=== PATIENT | male | born 1945 | race Caucasian/White ===

== ENCOUNTER 2017-05-31 14:18 | Inpatient (IN) | payer MEDICARE ==
[~2017-05-31] VITALS: Ht 172.7 cm; Wt 79.8 kg
[~2017-05-31 14:18] MED LIST: CHRO200T2 PO; COQ150CA OR; CYCL1PAK PO; ECOT325T PO; FLAX10008 OR; FOLI200T OR; ISOS30TA3 PO; METO50TA OR; POTA595T2 PO; PRAS10TA OR; PRAV20TA67 PO; TAB-TAB PO; VITA20003 OR
[2017-05-31 14:33] VITALS: BP 163/82; PULSE 66; RESP 18; TEMP 98; O2SAT 96
[2017-05-31 15:10] VITALS: BP 183/87; PULSE 64; RESP 18; O2SAT 97
[2017-05-31 15:14] VITALS: BP_SYST 155; BP_SYST 183; BP_DIAS 78; BP_DIAS 87; PULSE 64; RESP 18; O2SAT 97
[2017-05-31] MEDS ORDERED: SODIUM CHLORIDE 0.9% FLUSH 10 ML FLUSH IVF PRN (15:15)
[2017-05-31 15:23] LABS: BICARBONATE 28.3 MEQ/L (21.0-32.0); CALCIUM 9.2 MG/DL (8.5-10.1); CREATININE 0.74 MG/DL (0.60-1.30)
[2017-05-31 15:26] LABS: TROPONIN I 0.09 NG/ML (0.02-0.05)
[2017-05-31 15:37] LABS: AUTOMATED NEUTROPHIL # 2.8 TH/MM3 (1.8-7.7); BASOPHIL % 0.4 % (0.0-2.0); EOSINOPHIL # 0.1 TH/MM3 (0-0.4); EOSINOPHIL % 2.4 % (0.0-4.0); HEMATOCRIT 42.5 % (39.0-51.0); HEMOGLOBIN 15.3 GM/DL (13.0-17.0); LYMPH % 28.5 % (9.0-44.0); LYMPHOCYTE # 1.4 TH/MM3 (1.0-4.8); MEAN CORPUSCULAR HEMOGLOBIN 33.2 PG (27.0-34.0); MEAN PLATELET VOLUME 7.7 FL (7.0-11.0); MONO % 9.7 % (0.0-8.0); MONOCYTE # 0.5 TH/MM3 (0-0.9); PLATELET COUNT 178 TH/MM3 (150-450); RED BLOOD COUNT 4.62 MIL/MM3 (4.50-5.90); WHITE BLOOD COUNT 4.8 TH/MM3 (4.0-11.0)
--- NOTE | 2017-05-31 15:37 | RADRPT ---
EXAM DATE/TIME: 05/31/2017 15:28 [place] COMPARISON: No previous studies available for comparison. INDICATIONS : Chest pain SURGICAL HISTORY : CABG. ENCOUNTER: Initial ACUITY: 3 days PAIN SCORE: 10/10 LOCATION: chest FINDINGS: Sternal wires from previous bypass and valve replacement. Lungs are clear. There is no pneumothorax or effusion. Degenerative change is present thoracic spine.. CONCLUSION: No acute disease. Xander Liz MD FACR on May 31, 2017 at 15:35 Board Certified Radiologist. This report was verified electronically.
[2017-05-31 15:43] LABS: MEAN CORPUSCULAR HGB CONC 36.1 % (32.0-36.0)
[2017-05-31 15:53] LABS: PROTHROMBIN TIME - PATIENT 10.3 SEC (9.8-11.6)
[2017-05-31] MEDS ORDERED: NITROGLYCERIN 0.4 MG SL 25 TABS/BTL SL ONE (16:00)
[2017-05-31] MEDS ORDERED: ASPIRIN 81 MG CHEW TAB PO ONE (16:00)
--- NOTE | 2017-05-31 16:03 | PD ---
HPI Chief Complaint: Chest Pain Time Seen by Provider: 15:10 Travel History International Travel<30 days: No Contact w/Intl Traveler<30days: No Traveled to known affect area: No History of Present Illness HPI 71 y/o male presents with central chest pain intermittently since Saturday. He states he has been taking multiple nitroglycerin since then without relief. He states he took a baby aspirin. He states Dr. Canchola is his skinner pelts. He states his last stress test was normal 2 months ago. He states that in about 2011 he had a collapsed vessel that they could not stent but he has history of 4 stents and bypass surgery. He denies any other concurrent complaints. He denies specific modifying factors. He states he waited to come in today because he just got back from [place] and wanted to be seen down here. Quality is pressure. Severity is moderate. PFSH Past Medical History Arthritis: Yes (DON'T HAVE IT ANYMORE.) Asthma: No Blood Disorders: No Heart Rhythm Problems: No Cancer: No Cardiac Catheterization: Yes Cardiovascular Problems: Yes High Cholesterol: Yes Chest Pain: Yes Congestive Heart Failure: Yes COPD: No Cerebrovascular Accident: No Diabetes: No Endocrine: No Gastrointestinal Disorders: No GERD: No Genitourinary: No Headaches: No Hepatitis: No Hiatal Hernia: No Heparin Induced Thrombocytopen: No Hypertension: Yes Immune Disorder: No Kidney Stones: No Musculoskeletal: No Neurologic: No Psychiatric: No Reproductive: No Respiratory: No Migraines: No Myocardial Infarction: Yes Renal Failure: No Seizures: No Sleep Apnea: No Ulcer: No Past Surgical History Abdominal Surgery: No Appendectomy: No Cardiac Surgery: Yes (HEART VALVE) Cholecystectomy: No Coronary Artery Bypass Graft: Yes Ear Surgery: No Endocrine Surgery: No Eye Surgery: No Genitourinary Surgery: No Gynecologic Surgery: No Neurologic Surgery: No Oral Surgery: No Thoracic Surgery: No Other Surgery: Yes (OPEN HEART SURGRY 1997,2007) Family History Family Myocardial Infarction: Yes (FATHER AND BROTHERS) Social History Alcohol Use: Yes (wine on occasion) Tobacco Use: No Substance Use: No Allergies-Medications (Allergen,Severity, Reaction): Coded Allergies: atorvastatin (Unverified Allergy, Unknown, 11/06/16) clopidogrel (Unverified Allergy, Unknown, 11/06/16) simvastatin (Unverified Allergy, Unknown, 11/06/16) Reported Meds & Prescriptions Reported Meds & Active Scripts Active Reported Pravastatin 20 Mg Tab 20 Mg PO DAILY Isosorbide Mononitrate ER (Isosorbide Mononitrate) 60 Mg Tab 60 Mg PO DAILY Metoprolol Tartrate 25 Mg Tab 25 Mg PO BID Coq10 Maximum Strength (Coenzyme Q10 (Ubidecarenone)) 400 Mg Cap Vitamin D3 Maximum Strength (Cholecalciferol) 5,000 Unit Cap 5,000 Units PO DAILY Aspirin 81 Mg Chew 81 Mg CHEW DAILY Review of Systems Except as stated in HPI: all other systems reviewed are Neg Physical Exam Narrative GENERAL: 71-year-old male in no apparent distress SKIN: Focused skin assessment warm/dry. HEAD: Atraumatic. Normocephalic. EYES: Pupils equal and round. No scleral icterus. No injection or drainage. ENT: No nasal bleeding or discharge. Mucous membranes pink and moist. NECK: Trachea midline. No JVD. CARDIOVASCULAR: Regular rate and rhythm. RESPIRATORY: No accessory muscle use. No increased effort GASTROINTESTINAL: Abdomen nondistended. MUSCULOSKELETAL: No obvious deformities. No clubbing. No cyanosis. NEUROLOGICAL: Awake and alert. Moves all extremities. Normal speech. PSYCHIATRIC: Appropriate mood and affect; insight and judgment normal. Data Data Last Documented VS Vital Signs Date Time Temp Pulse Resp B/P (MAP) Pulse Ox O2 Delivery O2 Flow Rate FiO2 05/31/17 15:14 18 97 Room Air 05/31/17 15:14 64 05/31/17 14:33 98.0 Orders Orders Electrocardiogram (05/31/17 14:32) Complete Blood Count With Diff (05/31/17 14:32) Basic Metabolic Panel (Bmp) (05/31/17 14:32) Ckmb (Isoenzyme) Profile (05/31/17 14:32) Troponin I (05/31/17 14:32) Magnesium (Mg) (05/31/17 15:10) Prothrombin Time / Inr (Pt) (05/31/17 15:10) Act Partial Throm Time (Ptt) (05/31/17 15:10) Ecg Monitoring (05/31/17 15:10) Bilateral Bp Monitoring (05/31/17 15:10) Iv Access Insert/Monitor (05/31/17 15:10) Oximetry (05/31/17 15:10) Oxygen Administration (05/31/17 15:10) Sodium Chloride 0.9% Flush (Ns Flush) (05/31/17 15:15) Chest, Pa & Lat (05/31/17 15:10) Aspirin Chew (Aspirin Chew) (05/31/17 16:00) Nitroglycerin Sl (Nitrostat Sl) (05/31/17 16:00) Heparin Inj (Heparin Inj) (05/31/17 16:30) Heparin Inj (Heparin Inj) (05/31/17 22:30) Heparin Inj (Heparin Inj) (05/31/17 22:30) Heparin-D5w 25,000 U/250 Ml (Heparin-D5w (05/31/17 16:30) Cbc No Diff, Includes Plts (06/03/17 06:00) Act Partial Throm Time (Ptt) (05/31/17 23:29) Occult Blood (Hemoccult) Stool (05/31/17 16:29) Admit Order (Ed Use Only) (05/31/17 16:37) Labs Laboratory Tests Test 05/31/17 14:45 05/31/17 15:22 White Blood Count 4.8 TH/MM3 Red Blood Count 4.62 MIL/MM3 Hemoglobin 15.3 GM/DL Hematocrit 42.5 % Mean Corpuscular Volume 92.0 FL Mean Corpuscular Hemoglobin 33.2 PG Mean Corpuscular Hemoglobin Concent 36.1 % Red Cell Distribution Width 13.0 % Platelet Count 178 TH/MM3 Mean Platelet Volume 7.7 FL Neutrophils (%) (Auto) 59.0 % Lymphocytes (%) (Auto) 28.5 % Monocytes (%) (Auto) 9.7 % Eosinophils (%) (Auto) 2.4 % Basophils (%) (Auto) 0.4 % Neutrophils # (Auto) 2.8 TH/MM3 Lymphocytes # (Auto) 1.4 TH/MM3 Monocytes # (Auto) 0.5 TH/MM3 Eosinophils # (Auto) 0.1 TH/MM3 Basophils # (Auto) 0.0 TH/MM3 CBC Comment AUTO DIFF Blood Urea Nitrogen 11 MG/DL Creatinine 0.74 MG/DL Random Glucose 107 MG/DL Calcium Level 9.2 MG/DL Sodium Level 141 MEQ/L Potassium Level 3.6 MEQ/L Chloride Level 106 MEQ/L Carbon Dioxide Level 28.3 MEQ/L Anion Gap 7 MEQ/L Estimat Glomerular Filtration Rate 104 ML/MIN Total Creatine Kinase 76 U/L Troponin I 0.09 NG/ML Prothrombin Time 10.3 SEC Prothromb Time International Ratio 1.0 RATIO Activated Partial Thromboplast Time 25.6 SEC MDM Medical Decision Making Medical Screen Exam Complete: Yes Emergency Medical Condition: Yes Medical Record Reviewed: Yes (Past history confirmed) Interpretation(s) CBC & BMP Diagram 05/31/17 14:45 Calcium Level 9.2 Last 24 hours Impressions Chest X-Ray 05/31/17 1510 Signed Impressions: Service Date/Time: Saturday, May 31, 2017 15:28 - CONCLUSION: No acute disease. Xander Liz MD FACR Differential Diagnosis Cardiac, musculoskeletal, gastritis Narrative Course We will follow blood work and x-ray and dose with aspirin and nitroglycerin and reevaluate Given elevated troponin will discuss with his skinner pelts patient updated and agrees to admit Physician Communication Physician Communication dr canchola states to place and heparin and admit, likely cath saturday Diagnosis Primary Impression: Unstable angina Additional Impression: Elevated troponin Admitting Information Admitting Physician Requests: Admit Brenda Dobbs MD May 31, 2017 16:03
[2017-05-31] MEDS ORDERED: PRAV20TA2 PO (16:19)
[2017-05-31] MEDS ORDERED: ASPI-516 PO (16:19)
[2017-05-31] MEDS ORDERED: METO25TA3 PO (16:19)
[2017-05-31] MEDS ORDERED: COQ1400C (16:19)
[2017-05-31] MEDS ORDERED: CHOL500022 PO (16:19)
[2017-05-31] MEDS ORDERED: ISOS60TA PO (16:19)
[2017-05-31] MEDS ORDERED: HEPARIN SODIUM - IV 10,000 UNITS/10 ML VIAL IV ONE (16:30)
--- NOTE | 2017-05-31 17:01 | HHI.HP ---
HPI Service [facility] Hospitalists Primary Care Physician Diallo Ocampo D.O. Admission Diagnosis unstable angina Chief Complaint: Chest pain Travel History International Travel<30 Days: No Contact w/Intl Traveler <30 Da: No Traveled to Known Affected Are: No History of Present Illness Mr. Gonzales is a pleasant 71 y/o WM with of CAD s/p CABG x 3 in 1997, unstable angina, hx of aortic valve replacement with bioprosthetic valve and previous stenting. His last cardiac cath was in [address] Carlisle which noted a totally occluded SVG to PDA graft but a patent MCGINNIS to LAD and patent SVG to large diagonal and patent [place] circumflex. Pt follows with Dr. Garces for Cardiology. Pt reports that he had an outpt nuclear stress test about 2 months ago which was negative per the pt. He was out of the state this week and states that he woke up during the night on Saturday with some left sided chest tightness and left arm pain. He took an Imdur (the third he had taken that day) with some relief. He had to drive up to [place] that day and continued to have intermittent left chest tightness/burning and left arm numbness while driving. He states that the pain was occurring at rest which is unusual for him. This occurred multiple times over the next three days and was taking Nitro 5-6 times per day. He has some pain associated with food intake and occasionally noted some chest pain with positional changes. Denies any SOB, palpitations, diaphoresis, dizziness or weakness. Pt reported to the ED after returning to town because he continued to have this intermittent chest pain which he reports is the same pain he has experienced in the past related to his cardiac pain. In the ED his first set of CE noted elevated troponin of 0.09. The ER discussed the case with the pts Organ Pipe Finisher, Dr. Garces and he is being started on Heparin and planning for [facility] likely Saturday. Review of Systems Constitutional: DENIES: Fever, Chills Eyes: DENIES: Vision loss Ears, nose, mouth, throat: DENIES: Hearing loss Respiratory: DENIES: Cough Cardiovascular: COMPLAINS OF: Chest pain, DENIES: Palpitations, Lower Extremity Edema Gastrointestinal: DENIES: Abdominal pain, Diarrhea, GERD, Nausea, Reflux, Vomiting Genitourinary: DENIES: Hematuria, Dysuria Musculoskeletal: DENIES: Back pain, Neck pain Integumentary: DENIES: Rash Neurologic: COMPLAINS OF: Paresthesias, DENIES: Headache, Localized weakness, Speech Problems Psychiatric: DENIES: Confusion Past Family Social History Past Medical History CAD with hx of [place] Hx of aortic valve stenosis Unstable angina Prediabetes HTN Hyperlipidemia Dysphagia ?strictures 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 Past Surgical History CABG x 3 in 1997 AVR with bioprosthetic valve in 2008 Tonsillectomy at age 1 Hx of EGD with dilation Reported Medications -Pravastatin 20 Mg PO DAILY --Isosorbide Mononitrate ER 60 Mg PO BID -Metoprolol Tartrate 25 Mg PO BID -Coq10 Maximum Strength 400 Mg Cap PO DAILY -Vitamin D3 Maximum Strength 5,000 Units PO DAILY -Aspirin 81 Mg CHEW DAILY Nitro PRN HCTZ Allergies: Coded Allergies: atorvastatin (Unverified Allergy, Unknown, 11/06/16) clopidogrel (Unverified Allergy, Unknown, 11/06/16) simvastatin (Unverified Allergy, Unknown, 11/06/16) Family History Father from CAD/[place] Brother with hx of CAD Mother with hx of lung cancer Social History Pt with remote hx of tobacco use, quit smoking in 1965 Denies any alcohol use Pt is and lives locally Physical Exam Vital Signs Vital Signs Date Time Temp Pulse Resp B/P (MAP) Pulse Ox O2 Delivery O2 Flow Rate FiO2 05/31/17 15:14 18 97 Room Air 05/31/17 15:14 64 183/87 (119) 155/78 (103) 05/31/17 15:14 97 Room Air 05/31/17 15:11 62 18 97 Room Air 05/31/17 15:10 64 18 183/87 (119) 97 Room Air 05/31/17 14:33 98.0 66 18 163/82 (109) 96 Physical Exam GENERAL: This is a well-nourished, well-developed patient, in no apparent distress. HEENT: Atraumatic. Normocephalic. No temporal or scalp tenderness. No scleral icterus. Airway patent. NECK: Trachea midline, supple, nontender. CARDIO: Regular. RESP: CTA bilaterally. No wheezes, rales, or rhonchi. ABD: +BS, soft, non-tender, nondistended. EXT: Extremities without clubbing, cyanosis, or edema. NEURO: Awake and alert. Motor and sensory grossly within normal limits. Normal speech. Laboratory Laboratory Tests Test 05/31/17 14:45 05/31/17 15:22 White Blood Count 4.8 Red Blood Count 4.62 Hemoglobin 15.3 Hematocrit 42.5 Mean Corpuscular Volume 92.0 Mean Corpuscular Hemoglobin 33.2 Mean Corpuscular Hemoglobin Concent 36.1 Red Cell Distribution Width 13.0 Platelet Count 178 Mean Platelet Volume 7.7 Neutrophils (%) (Auto) 59.0 Lymphocytes (%) (Auto) 28.5 Monocytes (%) (Auto) 9.7 Eosinophils (%) (Auto) 2.4 Basophils (%) (Auto) 0.4 Neutrophils # (Auto) 2.8 Lymphocytes # (Auto) 1.4 Monocytes # (Auto) 0.5 Eosinophils # (Auto) 0.1 Basophils # (Auto) 0.0 CBC Comment AUTO DIFF Blood Urea Nitrogen 11 Creatinine 0.74 Random Glucose 107 Calcium Level 9.2 Sodium Level 141 Potassium Level 3.6 Chloride Level 106 Carbon Dioxide Level 28.3 Anion Gap 7 Estimat Glomerular Filtration Rate 104 Total Creatine Kinase 76 Troponin I 0.09 Prothrombin Time 10.3 Prothromb Time International Ratio 1.0 Activated Partial Thromboplast Time 25.6 Result Diagram: 05/31/17 1445 05/31/17 1445 Imaging Last Impressions Chest X-Ray 05/31/17 1510 Signed Impressions: Service Date/Time: Wednesday, May 31, 2017 15:28 - CONCLUSION: No acute disease. Xander Liz MD FACR Caprini VTE Risk Assessment Caprini VTE Risk Assessment: Mod/High Risk (score >= 2) Caprini Risk Assessment Model Point Value = 1 Point Value = 2 Point Value = 3 Point Value = 5 Age 41-60 Minor surgery BMI > 25 kg/m2 Swollen legs Varicose veins or History of unexplained or recurrent spontaneous Oral contraceptives or hormone replacement Sepsis (< 1 month) Serious lung disease, including pneumonia (< 1 month) Abnormal pulmonary function Acute myocardial infarction Congestive heart failure (< 1 month) History of inflammatory bowel disease Medical patient at bed rest Age 61-74 Arthroscopic surgery Major open surgery (> 45 min) Laparoscopic surgery (> 45 min) Malignancy Confined to bed (> 72 hours) Immobilizing plaster cast Central venous access Age >= 75 History of VTE Family history of VTE Factor V Leiden Prothrombin [id number] Lupus anticoagulant Anticardiolipin antibodies Elevated serum homocysteine Heparin-induced thrombocytopenia Other congenital or acquired thrombophilia Stroke (< 1 month) Elective arthroplasty Hip, pelvis, or leg fracture Acute spinal cord injury (< 1 month) Prophylaxis Regimen Total Risk Factor Score Risk Level Prophylaxis Regimen 0-1 Low Early ambulation 2 Moderate Order ONE of the following: *Sequential Compression Device (SCD) *Heparin 5000 units SQ BID 3-4 Higher Order ONE of the following medications: *Heparin 5000 units SQ TID *Enoxaparin/Lovenox 40 mg SQ daily (WT < 150 kg, CrCl > 30 mL/min) *Enoxaparin/Lovenox 30 mg SQ daily (WT < 150 kg, CrCl > 10-29 mL/min) *Enoxaparin/Lovenox 30 mg SQ BID (WT < 150 kg, CrCl > 30 mL/min) AND/OR *Sequential Compression Device (SCD) 5 or more Highest Order ONE of the following medications: *Heparin 5000 units SQ TID (Preferred with Epidurals) *Enoxaparin/Lovenox 40 mg SQ daily (WT < 150 kg, CrCl > 30 mL/min) *Enoxaparin/Lovenox 30 mg SQ daily (WT < 150 kg, CrCl > 10-29 mL/min) *Enoxaparin/Lovenox 30 mg SQ BID (WT < 150 kg, CrCl > 30 mL/min) AND *Sequential Compression Device (SCD) Assessment and Plan Problem List: (1) Unstable angina ICD Codes: I20.0 - Unstable angina Status: Acute Plan: - Pt is a 71 y/o WM with of CAD s/p CABG x 3 in 1997, unstable angina, hx of aortic valve replacement with bioprosthetic valve and previous stenting. His last cardiac cath was in [address] Carlisle which noted a totally occluded SVG to PDA graft but a patent MCGINNIS to LAD and patent SVG to large diagonal and patent [place] circumflex. Pt follows with Dr. Garces for Cardiology. - Pt presented to the ED at [facility] on 05/31/17 with complaints of intermittent chest pain with radiation to the left arm. The pt reports that he typically has exertional chest pain but that this was now occurring at rest as well. He has been taking extra dose of Imdur and upwards of 5-6 Nitro pills per day for the last 4-5 days. - In the ED his first set of CE noted elevated troponin of 0.09. - The ER discussed the case with the pts Organ Pipe Finisher, Dr. Garces and he is being started on Heparin and planning for [facility] likely Saturday - Repeat CE and EKGs. - Consult Cardiology - monitoring engineer - Cont. home dose of Imdur, Metoprolol, Statin, and ASA - Morphine PRN - [place] PRN - Supportive care (2) Elevated troponin ICD Codes: R74.8 - Abnormal levels of other serum enzymes Status: Acute Plan: - See above (3) CAD (coronary artery disease) ICD Codes: I25.10 - Atherosclerotic heart disease of [place] coronary artery without angina pectoris Status: Chronic Plan: - See above. (4) HTN (hypertension) ICD Codes: I10 - Essential (primary) hypertension Status: Chronic Plan: - Home meds resumed - Clonidine PRN (5) Hyperlipidemia ICD Codes: E78.5 - Hyperlipidemia, unspecified Status: Chronic Plan: - Home meds continued Physician Certification 2 Midnight Certification Type: Admission for Inpatient Services Order for Inpatient Services The services are ordered in accordance with Medicare regulations or non- Medicare payer requirements, as applicable. In the case of services not specified as inpatient-only, they are appropriately provided as inpatient services in accordance with the 2-midnight benchmark. Estimated LOS (days): 3 3 days is the estimated time the patient will need to remain in the hospital, assuming treatment plan goals are met and no additional complications. Post-Hospital Plan: Not yet determined Celi Del Cid May 31, 2017 17:01
[2017-05-31] MEDS ORDERED: MORPHINE SULFATE 2 MG/ML INJ IV PUSH PRN (17:15)
[2017-05-31] MEDS ORDERED: cloNIDine HCL 0.1 MG TAB PO PRN (17:30)
[2017-05-31] MEDS: HEPARIN-D5W 25,000 U/250 ML 250 ML IV PRN (17:35)
[2017-05-31 20:05] VITALS: O2SAT 98
[2017-05-31 20:38] LABS: TROPONIN I 0.18 NG/ML (0.02-0.05)
[2017-05-31 21:28] VITALS: PULSE 67
[2017-05-31] MEDS: METOPROLOL TARTRATE 25 MG TAB PO SCH (22:24)
[2017-05-31] MEDS: TEMAZEPAM 15 MG CAP PO PRN (22:24)
[2017-05-31] MEDS: ISOSORBIDE MONONITRATE 60 MG CR TAB (IMDUR) PO SCH (22:24)
[2017-05-31] MEDS ORDERED: HEPARIN SODIUM - IV 10,000 UNITS/10 ML VIAL IV PRN ×2 (22:30)
[2017-06-01] VITALS (8 sets, daily range): BP systolic 121–162; BP diastolic 66–79; PULSE 58–68; RESP 16–20; TEMP 97.3–98; O2SAT 94–96
[2017-06-01 03:07] LABS: TROPONIN I 0.1 NG/ML (0.02-0.05)
[2017-06-01] MEDS: PRAVASTATIN SOD 20 MG TAB PO SCH (09:57)
[2017-06-01] MEDS: ISOSORBIDE MONONITRATE 60 MG CR TAB (IMDUR) PO SCH ×2 (09:57→20:24)
[2017-06-01] MEDS: ASPIRIN 81 MG CHEW TAB CHEW SCH (09:58)
[2017-06-01] MEDS: METOPROLOL TARTRATE 25 MG TAB PO SCH ×2 (09:58→20:25)
--- NOTE | 2017-06-01 10:23 | HHI.PR ---
Subjective Remarks no cp overnight. good spirits Objective Vitals heart reg lung cta abd s/nt ext no edema Vital Signs Date Time Temp Pulse Resp B/P (MAP) Pulse Ox O2 Delivery O2 Flow Rate FiO2 06/01/17 04:00 97.4 60 16 129/74 (92) 96 06/01/17 04:00 Room Air 06/01/17 04:00 59 06/01/17 00:00 Room Air 06/01/17 00:00 64 06/01/17 00:00 98.0 58 16 121/75 (90) 96 05/31/17 21:28 67 05/31/17 20:30 Room Air 05/31/17 20:05 98 05/31/17 20:01 05/31/17 15:14 18 97 Room Air 05/31/17 15:14 64 183/87 (119) 155/78 (103) 05/31/17 15:14 97 Room Air 05/31/17 15:11 62 18 97 Room Air 05/31/17 15:10 64 18 183/87 (119) 97 Room Air 05/31/17 14:33 98.0 66 18 163/82 (109) 96 Result Diagram: 05/31/17 1445 05/31/17 1445 Imaging Last Impressions Chest X-Ray 05/31/17 1510 Signed Impressions: Service Date/Time: Wednesday, May 31, 2017 15:28 - CONCLUSION: No acute disease. Xander Liz MD FACR A/P Problem List: (1) Unstable angina ICD Codes: I20.0 - Unstable angina Status: Acute Plan: - Pt is a 71 y/o WM with of CAD s/p CABG x 3 in 1997, unstable angina, hx of aortic valve replacement with bioprosthetic valve and previous stenting. His last cardiac cath was in [address] Carlisle which noted a totally occluded SVG to PDA graft but a patent MCGINNIS to LAD and patent SVG to large diagonal and patent [place] circumflex. Pt follows with Dr. Garces for Cardiology. - Pt presented to the ED at [facility] on 05/31/17 with complaints of intermittent chest pain with radiation to the left arm. The pt reports that he typically has exertional chest pain but that this was now occurring at rest as well. He has been taking extra dose of Imdur and upwards of 5-6 Nitro pills per day for the last 4-5 days. - The ER discussed the case with the pts Artillery Meteorological Man, Dr. Garces and he is being started on Heparin and planning for [facility] likely Saturday - Cont. home dose of Imdur, Metoprolol, Statin, and ASA - Morphine PRN - [place] PRN - Supportive care (2) Elevated troponin ICD Codes: R74.8 - Abnormal levels of other serum enzymes Status: Acute Plan: - See above (3) CAD (coronary artery disease) ICD Codes: I25.10 - Atherosclerotic heart disease of [place] coronary artery without angina pectoris Status: Chronic Plan: - See above. (4) HTN (hypertension) ICD Codes: I10 - Essential (primary) hypertension Status: Chronic Plan: - Home meds resumed - Clonidine PRN (5) Hyperlipidemia ICD Codes: E78.5 - Hyperlipidemia, unspecified Status: Chronic Plan: - Home meds continued Audie Tavera MD Jun 01, 2017 10:23
--- NOTE | 2017-06-01 16:14 | PD.CONS ---
HPI Service Cardiology Consult Requested By Dr. Tavera Reason for Consult NSTEMI Primary Care Physician Diallo Ocampo D.O. History of Present Illness Mr. Gonzales is a pleasant 71 yo man, patient of Dr. Blane Garces, presented to ED yesterday because of progressively worsening chest pain for days. [place] was [place] of the [place] this week and states that he woke up during the night on Saturday with some left sided chest tightness and left arm pain. He took an Imdur (the third he had taken that day) with some relief. He had to drive up to [place] that day and continued to have intermittent left chest tightness/burning and left arm numbness while driving. He states that the pain was occurring at rest which is unusual for him. This occurred multiple times over the next three days and was taking Nitro 5-6 times per day. He has some pain associated with food intake and occasionally noted some chest pain with positional changes. Denies any SOB, palpitations, diaphoresis, dizziness or weakness. Pt reported to the ED after returning to [facility] because he continued to have this intermittent chest pain which he reports is the same pain he has experienced in the past related to his cardiac pain. In the ED his first set of CE noted elevated troponin of 0.09, and norman to 0.18. The ER discussed the case with the pts Montessori Paraprofessional, Dr. Garces and he is being started on Heparin and planning for LHC likely Saturday. He has hx of CAD s/p CABG x 3 in 1997, unstable angina, hx of aortic valve replacement with bioprosthetic valve and previous stenting. His last cardiac cath was in 2011 by me which noted a totally occluded SVG to PDA graft but a patent MCGINNIS to LAD and patent SVG to large diagonal and patent [place] circumflex. Pt follows with Dr. Garces for Cardiology for the last few years. Pt reports that he had an outpt nuclear stress test about 2 months ago because of chest pain, which was negative. He said he felt better over night on IV Heparin, and his chest pressure has reduced. Review of Systems Consitutional: DENIES: Fatigue, Fever, Chills, Weight gain, Weight loss Eyes: DENIES: Amaurosis [place], Change in vision HEENT: DENIES: Lightheadedness, Change in hearing Respiratory: COMPLAINS OF: See HPI, DENIES: Cough, Snoring, Shortness of breath , Wheezing, Sputum production Cardiovascular: COMPLAINS OF: See HPI, DENIES: Chest pain, Palpitations, Syncope, Tachycardia Gastrointestinal: DENIES: Nausea, Vomiting, Change in bowel habits, Reflux, Bloody stools, Melena Genitourinary: DENIES: Urinary incontinence, Difficulty voiding Integumentary: DENIES: Rash Neurologic: DENIES: Tingling or numbness, Memory problems, Poor Balance, Stroke symptoms Musculoskeletal: COMPLAINS OF: Joint pain, DENIES: Muscle pain, Limited range of motion, Back pain Psychiatric: DENIES: Anxiety, Depression, Sleep disturbances Hematologic: DENIES: Bruising tendencies, Bleeding tendencies Endocrine: DENIES: Weight gain, Weight loss, Thyroid disease Past Family Social History Allergies: Coded Allergies: atorvastatin (Unverified Allergy, Unknown, 11/06/16) clopidogrel (Unverified Allergy, Unknown, 11/06/16) simvastatin (Unverified Allergy, Unknown, 11/06/16) Past Medical History CAD with hx of VA Hx of aortic valve stenosis Unstable angina Prediabetes HTN Hyperlipidemia Dysphagia ?strictures 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 Past Surgical History Past Surgical History CABG x 3 in 1997 AVR with bioprosthetic valve in 2008 Tonsillectomy at age 1 Hx of EGD with dilation Reported Medications Reported Meds & Active Scripts Active Reported Pravastatin 20 Mg Tab 20 Mg PO DAILY Isosorbide Mononitrate ER (Isosorbide Mononitrate) 60 Mg Tab 60 Mg PO BID Metoprolol Tartrate 25 Mg Tab 25 Mg PO BID Coq10 Maximum Strength (Coenzyme Q10 (Ubidecarenone)) 400 Mg Cap Vitamin D3 Maximum Strength (Cholecalciferol) 5,000 Unit Cap 5,000 Units PO DAILY Aspirin 81 Mg Chew 81 Mg CHEW DAILY Active Ordered Medications Current Medications Medications (Trade) Dose Ordered Sig/Nate Route Start Time Stop Time Status Last Admin (NS Flush) 2 ml UNSCH PRN IVF 05/31/17 15:15 (Heparin Inj) 5,000 units UNSCH PRN IV 05/31/17 22:30 (Heparin Inj) 2,500 units UNSCH PRN IV 05/31/17 22:30 Heparin Sodium/ Dextrose 250 ml @ 10 mls/hr TITRATE PRN IV 05/31/17 16:30 05/31/17 17:35 (Restoril) 15 mg HS PRN PO 05/31/17 21:00 05/31/17 22:24 (Aspirin Chew) 81 mg DAILY CHEW 06/01/17 09:00 06/01/17 09:58 (Imdur) 60 mg BID PO 05/31/17 21:00 06/01/17 09:57 (Lopressor) 25 mg BID PO 05/31/17 21:00 06/01/17 09:58 (Pravachol) 20 mg DAILY PO 06/01/17 09:00 06/01/17 09:57 ([place] 5-325 Mg) 1 tab Q4H PRN PO 05/31/17 17:15 (Morphine Inj) 2 mg Q4H PRN IV PUSH 05/31/17 17:15 (Catapres) 0.1 mg Q6H PRN PO 05/31/17 17:30 Family History Father from CAD/VA Brother with hx of CAD Mother with hx of lung cancer Social History Pt with remote hx of tobacco use, quit smoking in 1965 Denies any alcohol use Pt is and lives locally Physical Exam Vital Signs Vital Signs Date Time Temp Pulse Resp B/P (MAP) Pulse Ox O2 Delivery O2 Flow Rate FiO2 06/01/17 14:21 3.00 06/01/17 08:00 97.3 65 20 162/78 (106) 94 06/01/17 04:00 97.4 60 16 129/74 (92) 96 06/01/17 04:00 Room Air 06/01/17 04:00 59 06/01/17 00:00 Room Air 06/01/17 00:00 64 06/01/17 00:00 98.0 58 16 121/75 (90) 96 05/31/17 21:28 67 05/31/17 20:30 Room Air 05/31/17 20:05 98 05/31/17 20:01 Physical Exam GENERAL: Very pleasant, comfortable, in no apparent distress. HEENT: Atraumatic. Normocephalic. No temporal or scalp tenderness. No scleral icterus. Airway patent. NECK: Trachea midline, supple, nontender. CARDIO: Regular rate and rhythm. 2/6 apical systolic murmur. No edema RESP: CTA bilaterally. No wheezes, rales, or rhonchi. ABD: +BS, soft, non-tender, nondistended. EXT: Extremities without clubbing, cyanosis, or edema. NEURO: Awake and alert. Motor and sensory grossly within normal limits. Normal speech. Laboratory Laboratory Tests Test 05/31/17 20:00 05/31/17 23:50 06/01/17 02:26 06/01/17 06:43 Total Creatine Kinase 70 60 Troponin I 0.18 0.10 Activated Partial Thromboplast Time 41.3 39.2 Test 06/01/17 14:22 Activated Partial Thromboplast Time 40.4 Result Diagram: 05/31/17 1445 05/31/17 1445 Assessment and Plan Problem List: (1) NSTEMI (non-ST elevated myocardial infarction) ICD Codes: I21.4 - Non-ST elevation (NSTEMI) myocardial infarction (2) Elevated troponin ICD Codes: R74.8 - Abnormal levels of other serum enzymes Status: Acute (3) Unstable angina ICD Codes: I20.0 - Unstable angina Status: Acute (4) CAD (coronary artery disease) ICD Codes: I25.10 - Atherosclerotic heart disease of [place] coronary artery without angina pectoris Status: Chronic (5) Hyperlipidemia ICD Codes: E78.5 - Hyperlipidemia, unspecified Status: Chronic (6) HTN (hypertension) ICD Codes: I10 - Essential (primary) hypertension Status: Chronic Assessment and Plan 71 yo man, unstable angina for at least 5 days, elevated troponin hx of CAD s/p CABG x 3 in 1997, hx of aortic valve replacement with bioprosthetic valve and previous stenting. His last cardiac cath was in 2011 by me which noted a totally occluded SVG to PDA graft but a patent MCGINNIS to LAD and patent SVG to large diagonal and patent [place] circumflex. Pt follows with Dr. Garces for Cardiology for the last few years. Pt reports that he had an outpt nuclear stress test about 2 months ago because of chest pain, which was negative. 1. NSTEMI. Most likely recurrent ischemic heart disease. Continue IV Heparin, tentatively LHC with grafts, possible PCI on Saturday. 2. CAD, hx of CABG with 3 grafts, only 2/3 graft patent in 2011. continue Aspirin,and statin 3. VHD, s/p AVR. 1997 4. HTN, BP ok 5. HLP. Pravastatin. Dr. Carlisle covers Dr. Garces to 06/02. Wing Ritu Carlisle MD Jun 01, 2017 16:14
[2017-06-01] MEDS: HEPARIN-D5W 25,000 U/250 ML 250 ML IV PRN (17:16)
[2017-06-01] MEDS: TEMAZEPAM 15 MG CAP PO PRN (20:25)
[2017-06-01] MEDS: ACETAMINOPHEN/HYDROcodone 325 MG/5 MG TAB PO PRN (20:25)
--- NOTE | 2017-06-01 23:50 | EKG ---
Date Performed: 06/01/2017 Time Performed: 02:31:12 PTAGE: 71 years EKG: Possible Sinus rhythm Leftward axis Possible anterior infarct - age undetermined Lateral T wave changes are nonspecific Ab normal ECG Since the prior tracing, there has been no significant change DOCTOR: Ben Vivar Interpretating Date/Time 06/01/2017 23:48:27
[2017-06-02] VITALS (8 sets, daily range): BP systolic 112–144; BP diastolic 67–85; PULSE 51–70; RESP 18–20; TEMP 97.3–97.9; O2SAT 94–100
--- NOTE | 2017-06-02 00:09 | EKG ---
Date Performed: 05/31/2017 Time Performed: 20:00:48 PTAGE: 71 years EKG: SINUS BRADYCARDIA WITH FIRST DEGREE AV BLOCK INFERIOR MYOCARDIAL INFARCTION ABNORMAL ECG PREVIOUS TRACING : 05/31/2017 14.41 Since the prior tracing, there has been no significant hill DOCTOR: Ben Vivar Interpretating Date/Time 06/02/2017 00:09:14
--- NOTE | 2017-06-02 00:26 | EKG ---
Date Performed: 05/31/2017 Time Performed: 14:41:22 PTAGE: 71 years EKG: Sinus rhythm WITH FIRST DEGREE AV BLOCK INFERIOR MYOCARDIAL INFARCTION ABNORMAL ECG PREVIOUS TRACING : 06/06/2011 14.02 Since the prior tracing, there has been no significant hill DOCTOR: Ben Vivar Interpretating Date/Time 06/02/2017 00:25:11
[2017-06-02] MEDS: ASPIRIN 81 MG CHEW TAB CHEW SCH (09:51)
[2017-06-02] MEDS: ISOSORBIDE MONONITRATE 60 MG CR TAB (IMDUR) PO SCH ×2 (09:51→21:19)
[2017-06-02] MEDS: METOPROLOL TARTRATE 25 MG TAB PO SCH ×2 (09:53→21:20)
[2017-06-02] MEDS: PRAVASTATIN SOD 20 MG TAB PO SCH (09:53)
[2017-06-02] MEDS ORDERED: ALUMINUM/MAGNESIUM/SIMETH 30 ML CUP PO PRN (11:00)
--- NOTE | 2017-06-02 11:19 | HHI.PR ---
Subjective Remarks on my eval..pt happy,,,eating breakfast...family present. no cp addendum: nurse called later and now pt with more chest pressure...?seems to be after meals.... Objective Vitals heart reg lung cta abd s/nt ext no edema Vital Signs Date Time Temp Pulse Resp B/P (MAP) Pulse Ox O2 Delivery O2 Flow Rate FiO2 06/02/17 08:00 97.8 63 20 137/83 (101) 94 06/02/17 07:00 Room Air 06/02/17 04:00 Room Air 06/02/17 04:00 97.4 53 18 128/72 (90) 96 06/02/17 04:00 51 06/02/17 00:00 97.6 54 18 112/67 (82) 95 06/01/17 23:46 59 06/01/17 22:36 21 06/01/17 20:29 Room Air 06/01/17 20:00 97.5 63 16 146/79 (101) 95 06/01/17 19:47 63 06/01/17 16:00 66 06/01/17 16:00 97.8 68 20 137/79 (98) 94 06/01/17 14:21 3.00 06/01/17 12:00 97.3 67 20 125/66 (85) 94 06/01/17 12:00 67 06/02/17 06/02/17 06/03/17 15:00 23:00 07:00 # Voids 3 Result Diagram: 05/31/17 1445 05/31/17 1445 Imaging Last Impressions Chest X-Ray 05/31/17 1510 Signed Impressions: Service Date/Time: Wednesday, May 31, 2017 15:28 - CONCLUSION: No acute disease. Xander Liz MD FACR A/P Problem List: (1) Unstable angina ICD Codes: I20.0 - Unstable angina Status: Acute Plan: - Pt is a 71 y/o WM with of CAD s/p CABG x 3 in 1997, unstable angina, hx of aortic valve replacement with bioprosthetic valve and previous stenting. His last cardiac cath was in [address] Carlisle which noted a totally occluded SVG to PDA graft but a patent MCGINNIS to LAD and patent SVG to large diagonal and patent [place] circumflex. Pt follows with Dr. Garces for Cardiology. - Pt presented to the ED at [facility] [place] on 05/[place]/17 with complaints of intermittent chest pain with radiation to the left arm. The pt reports that he typically has exertional chest pain but that this was now occurring at rest as well. He has been taking extra dose of Imdur and upwards of 5-6 Nitro pills per day for the last 4-5 days. - The ER discussed the case with the pts Transmission Engineer, Dr. Garces and he is being started on Heparin and planning for [facility] likely Saturday - Cont. home dose of Imdur, Metoprolol, Statin, and ASA - Morphine PRN and ntg prn - [place] PRN - addendum: RN called and pt seems to have some association of cp after his meals...now complaining of chest pressure after breakfast. will try ntg and mso4...if not helping then maalox. ppi. notify cardiology of symptoms. (2) Elevated troponin ICD Codes: R74.8 - Abnormal levels of other serum enzymes Status: Acute Plan: - See above (3) CAD (coronary artery disease) ICD Codes: I25.10 - Atherosclerotic heart disease of [place] coronary artery without angina pectoris Status: Chronic Plan: - See above. (4) HTN (hypertension) ICD Codes: I10 - Essential (primary) hypertension Status: Chronic Plan: - Home meds resumed - Clonidine PRN (5) Hyperlipidemia ICD Codes: E78.5 - Hyperlipidemia, unspecified Status: Chronic Plan: - Home meds continued Audie Tavera MD Jun 02, 2017 11:19
[2017-06-02] MEDS: PANTOPRAZOLE SODIUM 40 MG VIAL IV PUSH SCH (11:42)
[2017-06-02] MEDS: ACETAMINOPHEN/HYDROcodone 325 MG/5 MG TAB PO PRN ×2 (11:52→21:20)
--- NOTE | 2017-06-02 12:16 | PD.CARD.PN ---
Subjective Subjective Remarks No chest pain, but one epigastric pain after meal today. Objective Medications Current Medications Medications (Trade) Dose Ordered Sig/Nate Route Start Time Stop Time Status Last Admin (NS Flush) 2 ml UNSCH PRN IVF 05/31/17 15:15 06/01/17 20:25 (Heparin Inj) 5,000 units UNSCH PRN IV 05/31/17 22:30 (Heparin Inj) 2,500 units UNSCH PRN IV 05/31/17 22:30 Heparin Sodium/ Dextrose 250 ml @ 10 mls/hr TITRATE PRN IV 05/31/17 16:30 06/01/17 17:16 (Restoril) 15 mg HS PRN PO 05/31/17 21:00 06/01/17 20:25 (Aspirin Chew) 81 mg DAILY CHEW 06/01/17 09:00 06/02/17 09:51 (Imdur) 60 mg BID PO 05/31/17 21:00 06/02/17 09:51 (Lopressor) 25 mg BID PO 05/31/17 21:00 06/02/17 09:53 (Pravachol) 20 mg DAILY PO 06/01/17 09:00 06/02/17 09:53 ([place] 5-325 Mg) 1 tab Q4H PRN PO 05/31/17 17:15 06/02/17 11:52 (Morphine Inj) 2 mg Q4H PRN IV PUSH 05/31/17 17:15 (Catapres) 0.1 mg Q6H PRN PO 05/31/17 17:30 (Nitrostat Sl) 0.4 mg Q5M PRN SL 06/02/17 11:00 (Mag-Al Plus Susp Liq) 30 ml Q6H PRN PO 06/02/17 11:00 (Protonix Inj) 40 mg Q24H IV PUSH 06/02/17 11:30 06/02/17 11:42 Vital Signs / I&O Vital Signs Date Time Temp Pulse Resp B/P (MAP) Pulse Ox O2 Delivery O2 Flow Rate FiO2 06/02/17 08:00 97.8 63 20 137/83 (101) 94 06/02/17 07:00 Room Air 06/02/17 04:00 Room Air 06/02/17 04:00 97.4 53 18 128/72 (90) 96 06/02/17 04:00 51 06/02/17 00:00 97.6 54 18 112/67 (82) 95 06/01/17 23:46 59 06/01/17 22:36 21 06/01/17 20:29 Room Air 06/01/17 20:00 97.5 63 16 146/79 (101) 95 06/01/17 19:47 63 06/01/17 16:00 66 06/01/17 16:00 97.8 68 20 137/79 (98) 94 06/01/17 14:21 3.00 I/O 06/01/17 06/01/17 06/01/17 06/02/17 06/02/17 06/02/17 07:00 15:00 23:00 07:00 15:00 23:00 Intake Total 473 ml 840 ml Output Total 200 ml 1200 ml Balance 273 ml -360 ml Intake Oral 360 ml 840 ml IV Total 113 ml Output Urine Total 200 ml 1200 ml # Voids 3 # Bowel Movements 1 Physical Exam GENERAL: Very pleasant, comfortable, in no apparent distress. HEENT: Atraumatic. Normocephalic. No temporal or scalp tenderness. No scleral icterus. Airway patent. NECK: Trachea midline, supple, nontender. CARDIO: Regular rate and rhythm. 2/6 apical systolic murmur. No edema RESP: CTA bilaterally. No wheezes, rales, or rhonchi. ABD: +BS, soft, non-tender, nondistended. EXT: Extremities without clubbing, cyanosis, or edema. NEURO: Awake and alert. Motor and sensory grossly within normal limits. Normal speech. Laboratory Laboratory Tests Test 06/01/17 14:22 06/01/17 20:44 06/02/17 07:57 Activated Partial Thromboplast Time 40.4 SEC 40.3 SEC 42.5 SEC Assessment and Plan Problem List: (1) NSTEMI (non-ST elevated myocardial infarction) ICD Codes: I21.4 - Non-ST elevation (NSTEMI) myocardial infarction (2) Elevated troponin ICD Codes: R74.8 - Abnormal levels of other serum enzymes Status: Acute (3) Unstable angina ICD Codes: I20.0 - Unstable angina Status: Acute (4) CAD (coronary artery disease) ICD Codes: I25.10 - Atherosclerotic heart disease of [place] coronary artery without angina pectoris Status: Chronic (5) Hyperlipidemia ICD Codes: E78.5 - Hyperlipidemia, unspecified Status: Chronic (6) HTN (hypertension) ICD Codes: I10 - Essential (primary) hypertension Status: Chronic Assessment and Plan 71 yo man, unstable angina for at least 5 days, elevated troponin hx of CAD s/p CABG x 3 in 1997, hx of aortic valve replacement with bioprosthetic valve and previous stenting. His last cardiac cath was in 2011 by me which noted a totally occluded SVG to PDA graft but a patent MCGINNIS to LAD and patent SVG to large diagonal and patent [place] circumflex. Pt follows with Dr. Garces for Cardiology for the last few years. Pt reports that he had an outpt nuclear stress test about 2 months ago because of chest pain, which was negative. 1. NSTEMI. Most likely recurrent ischemic heart disease. Continue IV Heparin, tentatively [facility] with grafts, possible PCI on Saturday. Dr. Garces was notified, confirmed that [facility] tomorrow am 2. CAD, hx of CABG with 3 grafts, only 2/3 graft patent in 2011. continue Aspirin,and statin 3. VHD, s/p AVR. 1997 4. HTN, BP ok 5. HLP. Pravastatin. 6. possible GERD. Add Maalox, continue protonix Dr. Carlisle covers Dr. Garces 3 to 06/02. Wing Ritu Carlisle MD Jun 02, 2017 12:16
[2017-06-02] MEDS: NITROGLYCERIN 0.4 MG SL 25 TABS/BTL SL PRN (14:12)
[2017-06-02] MEDS: HEPARIN-D5W 25,000 U/250 ML 250 ML IV PRN (17:29)
[2017-06-02] MEDS: TEMAZEPAM 15 MG CAP PO PRN (21:19)
[2017-06-03] VITALS (21 sets, daily range): BP systolic 120–146; BP diastolic 67–93; PULSE 55–65; RESP 18–20; TEMP 97.6–98.4; O2SAT 94–98
[2017-06-03] MEDS ORDERED: HEPARIN-NS/PF FLUSH BAG 2,000 ML IV FLUSH ONE (07:48)
[2017-06-03] MEDS ORDERED: MIDAZOLAM HCL 2 MG/2 ML VIAL ONE ×2 (07:49→09:07)
[2017-06-03] MEDS: METOPROLOL TARTRATE 25 MG TAB PO SCH ×2 (07:52→23:15)
[2017-06-03] MEDS: ISOSORBIDE MONONITRATE 60 MG CR TAB (IMDUR) PO SCH (07:52)
[2017-06-03] MEDS: ASPIRIN 81 MG CHEW TAB CHEW SCH (07:53)
[2017-06-03] MEDS: PRAVASTATIN SOD 20 MG TAB PO SCH (07:53)
[2017-06-03 07:58] LABS: INTERNATIONAL NORMALIZED RATIO 1.1 RATIO; PROTHROMBIN TIME - PATIENT 10.8 SEC (9.8-11.6)
[2017-06-03 08:01] LABS: HEMATOCRIT 40.3 % (39.0-51.0); HEMOGLOBIN 14.6 GM/DL (13.0-17.0); MEAN CELL VOLUME 91.2 FL (80.0-100.0); MEAN CORPUSCULAR HGB CONC 36.2 % (32.0-36.0); MEAN PLATELET VOLUME 7.7 FL (7.0-11.0); PLATELET COUNT 166 TH/MM3 (150-450); RED BLOOD COUNT 4.41 MIL/MM3 (4.50-5.90); RED CELL DISTRIBUTION WIDTH 13.1 % (11.6-17.2); WHITE BLOOD COUNT 4.3 TH/MM3 (4.0-11.0)
[2017-06-03 08:24] LABS: ALBUMIN 3.5 GM/DL (3.4-5.0); ALT (GPT) 72 U/L (12-78); AST (GOT) 45 U/L (15-37); BICARBONATE 25.8 MEQ/L (21.0-32.0); BLOOD UREA NITROGEN 11 MG/DL (7-18); CALCIUM 8.8 MG/DL (8.5-10.1); CHLORIDE 106 MEQ/L (98-107); CREATININE 0.71 MG/DL (0.60-1.30); GLOMERULAR FILTRATION RATE 109 ML/MIN (>89); GLUCOSE,RANDOM 92 MG/DL (74-106); SODIUM (NA) 140 MEQ/L (136-145)
[2017-06-03 08:25] LABS: ALKALINE PHOSPHATASE 62 U/L (45-117); TOTAL BILIRUBIN ADULT 0.6 MG/DL (0.2-1.0)
[2017-06-03] MEDS ORDERED: BIVALIRUDIN 250 MG VIAL ONE (08:52)
[2017-06-03] MEDS ORDERED: ADENOSINE IV SOLN 3 MG/ML 2 ML VIAL ONE (08:54)
--- NOTE | 2017-06-03 08:57 | HHI.PR ---
Subjective Remarks going for [facility] this AM Objective Vitals heart reg lung cta abd s/nt ext no edema Vital Signs Date Time Temp Pulse Resp B/P (MAP) Pulse Ox O2 Delivery O2 Flow Rate FiO2 06/03/17 06:40 98.4 64 18 142/81 (101) 96 06/03/17 04:07 55 06/03/17 00:05 56 06/02/17 23:50 Room Air 06/02/17 23:49 97.4 57 18 144/83 (103) 100 06/02/17 21:12 21 06/02/17 20:13 Room Air 06/02/17 20:00 Room Air 06/02/17 20:00 97.9 06/02/17 19:45 63 06/02/17 16:00 97.7 61 20 113/85 (94) 95 06/02/17 16:00 55 06/02/17 12:00 97.3 57 20 127/81 (96) 95 06/02/17 12:00 70 Result Diagram: 06/03/17 0700 06/03/17 0700 Imaging Last Impressions Chest X-Ray 05/31/17 1510 Signed Impressions: Service Date/Time: Wednesday, May 31, 2017 15:28 - CONCLUSION: No acute disease. Xander Liz MD FACR A/P Problem List: (1) Unstable angina ICD Codes: I20.0 - Unstable angina Status: Acute Plan: - Pt is a 71 y/o WM with of CAD s/p CABG x 3 in 1997, unstable angina, hx of aortic valve replacement with bioprosthetic valve and previous stenting. His last cardiac cath was in [address] Carlisle which noted a totally occluded SVG to PDA graft but a patent MCGINNIS to LAD and patent SVG to large diagonal and patent [place] circumflex. Pt follows with Dr. Garces for Cardiology. - Pt presented to the ED at [facility] [place] on 05/31/17 with complaints of intermittent chest pain with radiation to the left arm. The pt reports that he typically has exertional chest pain but that this was now occurring at rest as well. He has been taking extra dose of Imdur and upwards of 5-6 Nitro pills per day for the last 4-5 days. -also seems to be some component of ugi symptoms after meals. - The ER discussed the case with the pts Body Service Team Member, Dr. Garces and he is being started on Heparin and planning for LHC likely Saturday - Cont. home dose of Imdur, Metoprolol, Statin, and ASA - Morphine PRN and ntg prn - [place] PRN -discussed with dr Garces this AM....says he will proceed with LHC. - (2) Elevated troponin ICD Codes: R74.8 - Abnormal levels of other serum enzymes Status: Acute Plan: - See above (3) CAD (coronary artery disease) ICD Codes: I25.10 - Atherosclerotic heart disease of [place] coronary artery without angina pectoris Status: Chronic Plan: - See above. (4) HTN (hypertension) ICD Codes: I10 - Essential (primary) hypertension Status: Chronic Plan: - Home meds resumed - Clonidine PRN (5) Hyperlipidemia ICD Codes: E78.5 - Hyperlipidemia, unspecified Status: Chronic Plan: - Home meds continued Audie Tavera MD Jun 03, 2017 08:57
[2017-06-03] MEDS ORDERED: PRASUGREL 10 MG TAB ONE (09:27)
[2017-06-03] MEDS ORDERED: NITROGLYCERIN 400 MCG/SPRAY 4.9 GM BOTTLE SL ONE (09:27)
[2017-06-03] MEDS ORDERED: BIVALIRUDIN INJ 250 MG in SODIUM CHLORIDE 0.9% INJ 50 ML IV SCH (09:34)
[2017-06-03] MEDS ORDERED: ATROPINE SULFATE 1 MG/ML VIAL IV PUSH PRN (09:45)
[2017-06-03] MEDS ORDERED: SODIUM CHLOR 0.9% 250 ML INJ 250 ML IV PRN (09:45)
[2017-06-03] MEDS ORDERED: ONDANSETRON HCL 4 MG/2 ML VIAL IV PUSH PRN (09:45)
[2017-06-03] MEDS ORDERED: MISC INFORMATION XX ONE (09:45)
--- NOTE | 2017-06-03 09:45 | CATHPROC ---
Wakie/Budist HIS Report Study Information Study Number Admission Scheduled Start Study Start [id number] May 31 2017 4:38PM 06/03/2017 Jun 03 2017 7:22AM [place] [facility] Cardiac Catheterization Admit Source Facility Department Other [facility] - [facility] Physician and Clinical Staff Initial Blane Danielle Tube Operator Tariq Mistry,RN Tube Operator Thomas Aceves,RN Recorder Jessica Subramanian ,RT(R) Scrub Luis Antonio Watson RCIS(BS) Procedures Performed Procedure Location (Site) Vessel Name Coronary Angiograms LCA Left Coronary Coronary Angiograms RCA Right Coronary Coronary Angiograms SVG-OM CIRC Coronary Angiograms MCGINNIS MCGINNIS Drug Eluting Inflatio SVG-OM CIRC L Heart Cath PTCA SVG-OM CIRC Wire insertion Fem Art (right) Femoral Art Equipment Time Group Managing Director Description Size Mfg Part Number Used/Scraped TRANSDUCER, CARLITO [id number] 08:13 GARNER VELOZ * Used W/STOCKCOCK *[id number] *[id number] *[id number] *[id number] 09:32 DAIG/ST. ABHIJEET MEDICAL ANGIOSEAL, FR6 VIP FR 6 Used *[id number] 08:13 Pzoom INDUSTRIES PACK, CCL CUSTOM * Used *[id number] 08:13 Pzoom PACER PEN, SKIN DUAL W/ RULER * Used *[id number] 09:01 MEDTRONIC BALLOON, 2.5 X 12MM EUPHORA 12MM Used *[id number] 08:24 MEDTRONIC JL 4.0 DXTERITY CATHETER FR 5 Used *[id number] 09:11 MEDTRONIC STENT, 2.5 15MM BEAR 2.5 15MM Used *[id number] 09:19 MEDTRONIC STENT, 2.5 38MM BEAR 2.5 38MM [id number] 08:55 B[employer]ze [employer] MEDICAL 30 LG INDEFLATOR Used *[id number] 08:54 [employer] MEDICAL SHEATH, FR6.5 PRELUDE 11CM FR 6.5 038ACT Used *[id number] 08:13 FlashSoft WIRE, 3MMJ .035 180CM 180CM Used *[id number] 08:40 FlashSoft WIRE, EXCHANGE 260CM 3MMJ 260CM Used *[id number] 08:13 NAMIC MANIFOLD, 4 PORT * Used *[id number] 08:13 NYCOMED OMNIPAQUE, 350 MG, 150ML 150ML [id number] Used [id number] 08:13 [place] MED[employer] BLANKET,WARM AIR CCL * Used *[id number] 08:13 TERUMO MEDICAL SHEATH, FR5 TERUMO (10CM) FR 5 Used *[id number] WIRE, RUNTHROUGH NS FLOPPY [id number] 08:54 TERUMO MEDICAL 180CM Used .014 180CM *[id number] 09:08 VASCULAR SOLUTIONS CATHETER, FR6 GUIDELINER FR 6 5571 *[id number] Used Equipment Model, Serial, Lot Number and Expiration Data Description Model Number Serial Number Lot Number Expiration Date STENT, 2.5 15MM BEAR [id number] 01-11-2019 STENT, 2.5 38MM BEAR [id number] 01-23-2019 History: Current Medications Medication Dosage/Unit Route Frequency Last Date/Time Taken Statins (any) LOPRESSOR ASA History: Allergies Allergy Reaction simvastatin atorvastatin clopidogrel History: Risk Factors Family History of Hypertension Dyslipidemia Previous ND Previous Heart Failure Premature CAD Yes Yes No Yes Yes Prior Valve Prior PCI Prior PCIDate Prior CABG Prior CABGDate Surgery Yes Yes 03/25/2011 Yes 03/25/1997 Cerebrovascular Peripheral Artery Chronic Lung On Dialysis Diabetes Disease Disease Disease No No No No No History: Stress Tests Stress or Imaging Studies Performed Yes History: Other Disease Selection Items CAD HTN History: Other Current Smoker Method Quit Packs a Day Years Used Pack Years No Cigarettes 52 Years Ago 2 1 2 Labs Hgb (g/dl) Hct (%) WBC (l/cumm) Platelets (thousands) 11.60-17.00 35.00-51.00 4.00-11.00 150.00-450.00 15.3 42.5 4.8 178 Glucose (mg/dl) BUN (mg/dl) Creatinine (mg/dl) BUN:Creatinine (1:x) 74.00-106.00 7.00-18.00 0.50-1.30 10.00-20.00 107 11 0.7 15.7 Na (meq/l) K (meq/l) 136.00-145.00 3.50-5.10 141 3.6 Troponin I (ng/ml) CPK (u/l) CPK-MB (ng/ML) 0.02-0.05 26.00-308.00 0.50-3.60 0.1 60 Not Drawn Medication Medication Total Dose (Bolus/Oral) Medication Total Dosage/Unit 1% XYLOCAINE 20 mL ADENOSINE 75 mcg ANGIOMAX BOLUS 12.4 mL EFFIENT 60 mg FENTANYL 100 mcg NITROGLYCERIN S/L 0.4 mg NTG (IC) 200 mcg VERSED 3 mg Medications (Bolus/Oral) Medication Time Given Dosage/Unit Administered By Reason VERSED 06/03/2017 8:32:32 AM 2 mg Yola, Thomas 2 mg VERSED given in lab by Thomas Aceves RN in Left Antecubital via Peripheral IV. Ordered by Blane Garces. 1% XYLOCAINE 06/03/2017 8:32:38 AM 20 mL Blane Garces 20 mL 1% XYLOCAINE given in lab by Blane Garces in Right Groin via Subcutaneous. Ordered by Blane Garces. FENTANYL 06/03/2017 8:33:40 AM 50 mcg Yola, Thomas 50 mcg FENTANYL given in lab by Thomas Aceves RN in Left Antecubital via Peripheral IV. Ordered by Blane Reid. ANGIOMAX BOLUS 06/03/2017 8:56:45 AM 12.4 mL Tariq Mistry 12.4 mL ANGIOMAX BOLUS given in lab by Tariq Mistry RN in Left Antecubital via Peripheral IV. Orde red by Blane Garces. ADENOSINE 06/03/2017 8:58:42 AM 3 mcg Blane Garces 3 mcg ADENOSINE given in lab by Blane Garces via Intra-coronary. Ordered by Blane Garces. FENTANYL 06/03/2017 9:06:00 AM 50 mcg Tariq Mistry 50 mcg FENTANYL given in lab by Tariq Mistry RN in Left Antecubital via Peripheral IV. Ordered by Blane Garces. ADENOSINE 06/03/2017 9:06:29 AM 18 mcg Blane Garces 18 mcg ADENOSINE given in lab by Blane Garces via Intra-coronary. Ordered by Blane Garces. VERSED 06/03/2017 9:08:31 AM 1 mg Yola, Thomas 1 mg VERSED given in lab by Thomas Aceves RN in Left Antecubital via Peripheral IV. Ordered by Blane Garces. NTG (IC) 06/03/2017 9:08:37 AM 100 mcg Blane Garces 100 mcg NTG (IC) given in lab by Blane Garces via Intra-coronary. Ordered by Blane Garces. ADENOSINE 06/03/2017 9:14:10 AM 18 mcg Blane Garces 18 mcg ADENOSINE given in lab by Blane Garces via Intra-coronary. Ordered by Blane Garces. NTG (IC) 06/03/2017 9:14:35 AM 100 mcg Blane Garces 100 mcg NTG (IC) given in lab by Blane Garces via Intra-coronary. Ordered by Blane Garces. ADENOSINE 06/03/2017 9:16:55 AM 18 mcg Blane Garces 18 mcg ADENOSINE given in lab by Blane Garces via Intra-coronary. Ordered by Blane Garces. ADENOSINE 06/03/2017 9:23:18 AM 18 mcg Blane Garces 18 mcg ADENOSINE given in lab by Blane Garces via Intra-coronary. Ordered by Blane Garces. NITROGLYCERIN S/L 06/03/2017 9:28:25 AM 0.4 mg Tariq Mistry 0.4 mg NITROGLYCERIN S/L given in lab by Tariq Mistry RN via Sublingual. Ordered by Blane Garces . EFFIENT 06/03/2017 9:38:00 AM 60 mg Tariq Mistry 60 mg EFFIENT given in lab by Tariq Mistry RN via Oral. Ordered by Blane Garces. Medication (Drip) Medication Time Given Dosage/Unit Concentration/Unit Diluent (ml) Solution ANGIOMAX DRIP 06/03/2017 9:00:00 AM 29 mL/hr 250 mL 50 NaCl .9 28.9 mL/hr ANGIOMAX DRIP given in lab by Tariq Mistry RN in Left Antecubital via Peripheral IV. Pu mp/Drip Flow using NaCl .9 with a concentration of 250 mL in 50 ml. Ordered by Blane Garces. IV Solutions 06/03/2017 8:04:01 AM 50 mL (IV) NaCl .9 IV Solutions given in lab by Thomas Aceves RN in Left Antecubital via Peripheral IV. Pump/Drip Flow u sing NaCl .9. Ordered by Blane Garces. Final Case Assessment Cardiovascular HR NIBP 58 144/81 Edema Present Skin color Skin None Normal Warm Dry Neurological State Oriented to time-place- Alert Moves all extremities person Respiration - General Respiration Rate SpO2 (%) (B/min) 14 97 Chronological Log Time Study Chronological Log 8:03:46 Patient arrived via Bed. 8:03:51 Patient Name, D.O.B, / Armband Verified By R.N. 8:03:52 Consent signed by the physician and the patient and verified by the [facility] staff. 8:03:52 Pre-op and post- op instructions given; patient acknowledges understanding of instructions. 8:03:53 Verbal Stimulation=2 Physical Stimulation=2 Airway=2 Respiration=2 TOTAL=8. (0=absent, 1=li mited, 2=present) 8:03:54 Presedation assessment performed by [facility] RN. 8:03:55 Immediate Presedation assesment performed by physician. 8:03:55 Patient has been NPO for More than 6Hrs. 8:03:56 Skin Breakdown- none per patient 8:03:59 Patient Warmer Placed on the Table. 8:03:59 Mikael Prominences Protected 8:04:00 A # 20 IV was noted in the Antecubital (left). Grade = 0 IV Solutions given in lab by Thomas Aceves RN in Left Antecubital via Peripheral IV. Pump/Drip Flow using NaCl .9. 8:04:01 Ordered by Blane Garces. 8:04:01 History and physical on the chart or being dictated. Vitals capture started with the following parameters, Patient=Adult, Interval=5 min, Initial Pr vfmscc=050 mmHg, 8:07:27 Deflation Rate=5 mmHg, Cuff placed on Right Arm 8:08:11 HR=65 bpm, BBVC=024/82 mmhg, SpO2=96.0 %, Resp=21 B/min, Pain=0, Mike=10, Oleary=2 8:08:42 Reference ECG taken 8:13:06 HR=64 bpm, XBSO=622/86 mmhg, SpO2=95.0 %, Resp=7 B/min, Pain=0, Mike=10, Oleary=2 8:13:45 Bilateral groins prepped with 2% chlorhexidine, and draped after a 3 minute waiting time. 8:16:10 MD paged 8:18:09 HR=61 bpm, UKPK=229/85 mmhg, SpO2=98.0 %, Resp=12 B/min, Pain=0, Mike=10, Oleary=2 8:19:50 Pressure channel 1 zeroed. 8:20:10 MD responded 8:23:08 HR=59 bpm, UFGD=850/82 mmhg, SpO2=98.0 %, Resp=12 B/min, Pain=0, Mike=10, Oleary=2 8:25:37 MD arrived. 8:28:07 HR=59 bpm, YEZL=458/80 mmhg, SpO2=98.0 %, Resp=11 B/min, Pain=0, Mike=10, Oleary=2 Time Out. Correct patient, correct procedure, correct physician, power injector not loaded with contrast with surgical 8:31:57 team present. Time Out Concurred by MD and individual staff in procedure. 8:32:10 Case Start 8:32:32 2 mg VERSED given in lab by Thomas Aceves, RN in Left Antecubital via Peripheral IV. Ordered by Blane Garces. 8:32:38 20 mL 1% XYLOCAINE given in lab by Blane Garces in Right Groin via Subcutaneous. Ordered b y Blane Garces. 8:33:06 HR=56 bpm, ZNDK=738/84 mmhg, SpO2=98.0 %, Resp=12 B/min, Pain=0, Mike=10, Oleary=2 8:33:40 50 mcg FENTANYL given in lab by Thomas Aceves, RN in Left Antecubital via Peripheral IV. Orde red by Blane Garces. 8:37:40 Access site was Right Femoral Artery. 8:37:47 A SHEATH, FR5 TERUMO (10CM) FR 5 was advanced into the Fem Art (right) using the Percutaneou s technique. 8:38:13 HR=60 bpm, IUWP=211/70 mmhg, SpO2=95.0 %, Resp=15 B/min, Pain=0, Mike=10, Oleary=2 8:39:56 The previous wire was exchanged for a WIRE, EXCHANGE 260CM 3MMJ 260CM. A CATHY INFINITI CATHETER FR 5 was advanced over a wire. OMNIPAQUE, 350 MG, 150ML 150ML was used f or 8:40:43 injections. Recorded Pressure: Ao, HR=60, Condition=Condition 1 8:41:45 (Aorta) Ao 138/70/97 8:42:15 The MCGINNIS was injected and visualized at various angles. OMNIPAQUE, 350 MG, 150ML 150ML used. 8:43:06 HR=60 bpm, KBNX=986/83 mmhg, SpO2=96.0 %, Resp=8 B/min, Pain=0, Mike=10, Oleary=2 After removing the current catheter a JL 4.0 DXTERITY CATHETER FR 5 was advanced over a WIRE, 3M MJ .035 180CM 8:43:25 180CM. 8:45:10 A WIRE, 3MMJ .035 180CM 180CM was inserted via Fem Art (right). 8:46:09 Wire removed 8:46:13 The LCA was injected and visualized at various angles. OMNIPAQUE, 350 MG, 150ML 150ML used. 8:47:09 Catheter was removed A JR 5.0 INFINITI CATHETER FR 5 was advanced over a wire. OMNIPAQUE, 350 MG, 150ML 150ML was use d for 8:47:16 injections. 8:48:05 HR=61 bpm, FTDI=085/73 mmhg, SpO2=97.0 %, Resp=10 B/min, Pain=0, Mike=10, Oleary=2 8:48:39 The RCA was injected and visualized at various angles. OMNIPAQUE, 350 MG, 150ML 150ML used. 8:50:53 The SVG-OM was injected and visualized at various angles. OMNIPAQUE, 350 MG, 150ML 150ML use d. A SHEATH, FR6.5 PRELUDE 11CM FR 6.5 was exchanged in the Fem Art (right). This was necessary in order to 8:52:58 accomodate a larger catheter. 8:53:45 HR=67 bpm, OOBW=968/84 mmhg, SpO2=98.0 %, Resp=10 B/min, Pain=0, Mike=10, Oleary=2 8:53:45 A LCB GUIDE CATHETER FR 6 was advanced over a wire. OMNIPAQUE, 350 MG, 150ML 150ML was used for injections. 8:55:26 A WIRE, RUNTHROUGH NS FLOPPY .014 180CM 180CM was inserted via Fem Art (right). 12.4 mL ANGIOMAX BOLUS given in lab by Tariq Mistry, MILVIA in Left Antecubital via Peripheral IV. Ordered by Dez 8:56:45 Blane. 8:58:09 HR=61 bpm, SUKG=775/84 mmhg, SpO2=98.0 %, Resp=13 B/min, Pain=0, Mike=10, Oleary=2 8:58:24 Interventional wire has crossed the lesion 8:58:42 3 mcg ADENOSINE given in lab by Blane Garces via Intra-coronary. Ordered by Blane Garces . 28.9 mL/hr ANGIOMAX DRIP given in lab by Tariq Mistry, MILVIA in Left Antecubital via Peripheral I V. Pump/Drip Flow 9:00:00 using NaCl .9 with a concentration of 250 mL in 50 ml. Ordered by Blane Garces. A BALLOON, 2.5 X 12MM EUPHORA 12MM was inserted over WIRE, RUNTHROUGH NS FLOPPY .014 180CM 180CM via 9:02:09 the Fem Art (right). 9:03:05 Patient complaining of chest pain A BALLOON, 2.5 X 12MM EUPHORA 12MM over a WIRE, RUNTHROUGH NS FLOPPY .014 180CM 180CM in the SVG -OM 9:03:20 was inflated using a 30 LG INDEFLATOR at 6 lg for 10 sec. A BALLOON, 2.5 X 12MM EUPHORA 12MM over a WIRE, RUNTHROUGH NS FLOPPY .014 180CM 180CM in the SVG -OM 9:03:51 was inflated using a 30 LG INDEFLATOR at 8 lg for 15 sec. 9:03:58 HR=67 bpm, LAPF=679/88 mmhg, SpO2=99.0 %, Resp=9 B/min, Pain=0, Mike=10, Oleary=2 A BALLOON, 2.5 X 12MM EUPHORA 12MM over a WIRE, RUNTHROUGH NS FLOPPY .014 180CM 180CM in the SVG -OM 9:04:25 was inflated using a 30 LG INDEFLATOR at 8 lg for 15 sec. 9:05:52 Balloon Removed. 9:06:00 50 mcg FENTANYL given in lab by Tariq Mistry, MILVIA in Left Antecubital via Peripheral IV. Or dered by Blane Garces. 9:06:29 18 mcg ADENOSINE given in lab by Blane Garces via Intra-coronary. Ordered by Kiko Garces 9:08:14 HR=58 bpm, JGCO=431/98 mmhg, SpO2=99.0 %, Resp=14 B/min 9:08:31 1 mg VERSED given in lab by Thomas Aceves RN in Left Antecubital via Peripheral IV. Ordered by Blane Garces. 9:08:37 100 mcg NTG (IC) given in lab by Blane Garces via Intra-coronary. Ordered by Kiko Garces A CATHETER, FR6 GUIDELINER FR 6 was advanced over a wire. OMNIPAQUE, 350 MG, 150ML 150ML was use d for 9:09:07 injections. A STENT, 2.5 15MM BEAR 2.5 15MM was advanced through a CATHETER, FR6 GUIDELINER FR 6 over a WIRE , 9:10:13 RUNTHROUGH NS FLOPPY .014 180CM 180CM. A STENT, 2.5 15MM BEAR 2.5 15MM was deployed using a 30 LG INDEFLATOR at 16 atmospheres for 15 seconds in 9:12:23 the SVG-OM. 9:12:39 Re-inflated the stent balloon in the SVG-OM to 6 LG for 10 seconds. 9:13:01 Re-inflated the stent balloon in the SVG-OM to 6 LG for 10 seconds. 9:13:08 HR=63 bpm, SDCS=040/97 mmhg, SpO2=97.0 %, Resp=15 B/min, Pain=0, Mike=10, Oleary=2 9:14:10 18 mcg ADENOSINE given in lab by Blane Garces via Intra-coronary. Ordered by Kiko Garces 9:14:35 100 mcg NTG (IC) given in lab by Blane Garces via Intra-coronary. Ordered by Kiko Garces 9:16:22 Delivery device removed 9:16:55 18 mcg ADENOSINE given in lab by Blane Garces via Intra-coronary. Ordered by Kiko Garces 9:18:07 HR=59 bpm, TDWW=064/89 mmhg, SpO2=96.0 %, Resp=12 B/min, Pain=0, Mike=10, Oleary=2 A STENT, 2.5 38MM BEAR 2.5 38MM was advanced through a CATHETER, FR6 GUIDELINER FR 6 over a WIRE , 9:18:36 RUNTHROUGH NS FLOPPY .014 180CM 180CM. A STENT, 2.5 38MM BEAR 2.5 38MM was deployed using a 30 LG INDEFLATOR at 15 atmospheres for 10 seconds in 9:20:53 the SVG-OM. 9:21:16 Re-inflated the stent balloon in the SVG-OM to 14 LG for 10 seconds. 9:21:40 Re-inflated the stent balloon in the SVG-OM to 14 LG for 10 seconds. 9:22:03 Re-inflated the stent balloon in the SVG-OM to 14 LG for 20 seconds. 9:22:49 Delivery device removed 9:23:11 HR=59 bpm, CRCX=849/89 mmhg, SpO2=97.0 %, Resp=11 B/min, Pain=0, Mike=10, Oleary=2 9:23:18 18 mcg ADENOSINE given in lab by Blane Garces via Intra-coronary. Ordered by Kiko Garces 9:25:50 Wire removed 9::53 Guideliner Catheter was removed 9:26:55 An injection in the Fem Art (right) was made through the SHEATH, FR6.5 PRELUDE 11CM FR 6.5. 9:27:00 ANGIOSEAL, FR6 VIP FR 6 placement in the Fem Art (right) 9:28:14 HR=57 bpm, OWEO=630/81 mmhg, SpO2=97.0 %, Resp=16 B/min, Pain=0, Mike=10, Oleary=2 9:28:25 0.4 mg NITROGLYCERIN S/L given in lab by Tariq Mistry, MILVIA via Sublingual. Ordered by Blane Garces. 9:28:52 Case End Assessment: Final Case, HR=58 BPM, BYOF=637/81 mmhg, Edema=None, Color=Normal, Skin = Warm, Dry 9:31:02 Neurological: State=Alert, Ox3, LOZANO Respiration: Resp=14 B/min, SpO2=97 % 9:31:07 Catheter(s) removed without difficulty 9:32:07 Sterile dressing applied to site 9:32:08 No case complications noted. 9:32:09 Cine recording checked. 9:32:11 Bedside Report will be given. 9:32:13 Implantable Device card placed in patient's chart. 9:32:17 A Left Heart Cath was performed. 9:33:13 HR=58 bpm, HRFZ=306/78 mmhg, SpO2=98.0 %, Resp=17 B/min, Pain=0, Mike=10, Oleary=2 9:38:00 60 mg EFFIENT given in lab by Tariq Mistry RN via Oral. Ordered by Blane Garces. 9:40:[facility] - Cont[facility] Media Used In Study Contrast Total Opened (mL) Total Used (mL) Total Wasted (mL) Omnipaque 180 180 0 End Study - Maximum Contrast Load Max Contrast Load (mL) 590.9 End Study - Radiation Exposure Fluoro Time (minutes) 15.5 End Study - Sheaths Sheaths Pulled By Sheath Hold Time (min) Luis Antonio Watson End Study - Patient Disposition Complications Transferred To Interventional Outcome No Telemetry Bed successful
[2017-06-03] MEDS ORDERED: MIDAZOLAM HCL 5 MG/ML VIAL (1 ML) ONE (10:35)
[2017-06-03] MEDS ORDERED: IOHEXOL 350 MG/ML 100 ML BTL (for Cath Lab) OTHER ONE (10:52)
[2017-06-03] MEDS ORDERED: MIDAZOLAM HCL 2 MG/2 ML VIAL IV ONE ×3 (11:00→11:45)
--- NOTE | 2017-06-03 11:05 | MA ---
cc: Blane Garces MD 06/03/2017 INDICATION: Non-ST elevation myocardial infarction. PROCEDURE PERFORMED: 1. Fluoroscopy with interpretation. 2. Coronary angiography. 3. Coronary artery bypass graft angiography. 4. Percutaneous intervention with drug eluting stents to the saphenous vein graft to the first obtuse marginal branch. 5. Intracoronary administration of adenosine and nitroglycerin. METHOD: Risks, benefits and alternatives were discussed with the patient. The patient understood and consented to the procedure. The patient was brought to the cardiac catheterization lab and placed on the catheterization table. The right groin was prepped and draped in a sterile fashion. The right groin was anesthetized with 2% lidocaine. Right common femoral artery was cannulated and a 5-Occitan 11 cm sheath was placed without difficulty. CORONARY ANGIOGRAPHY: 1. Left main is short but angiographically normal. 2. Left anterior descending coronary is 100% occluded proximally. 3. Left circumflex gives rise to an obtuse marginal branch and was 100% occluded. The remainder of the vessel shows mild luminal irregularities. 4. The right coronary is occluded in the midsegment. There is an acute marginal branch which has mild luminal irregularities. CORONARY BYPASS GRAFT ANGIOGRAPHY: 1. Left internal mammary to the left anterior descending coronary is widely patent. 2. Saphenous vein graft to the right coronary is occluded. 3. Saphenous vein graft to the first obtuse marginal branch has a 90% stenosis in the proximal segment, 80% stenosis in the distal segment. The obtuse marginal branch has mild luminal irregularities. PERCUTANEOUS INTERVENTION: Saphenous vein graft to the first obtuse marginal branch was selectively engaged with a 6-Occitan LCB guide catheter. After upgrading the sheath and Angiomax drip administered. A 0.014 inch 180 cm Flossonic Runthrough wire was navigated down to the distal obtuse marginal branch. A 2.5 x 12 mm RX Euphora balloon was deployed on 2 sequential inflations in the proximal and distal segment. Adenosine and nitroglycerin was administered pre and post to avoid no reflow phenomena. Repeat angiography showed ANTONY-II flow. A 2.5 x 15 mm RX Resolute Orleans stem was advanced at the distal segment and deployed. Again, adenosine and nitroglycerin were administered. Repeat angiography showed no residual stenosis. A 2.5 x 38 mm RX Resolute Orleans stent was advanced down to the proximal vein graft and deployed. Repeat angiography showed no residual stenosis, ANTONY-III flow. The sheath was removed. A 6-Occitan Angio-Seal was deployed with good hemostasis. CONCLUSION: 1. 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 2. Severe lumbee 3 vessel coronary artery disease. 3. 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 PLAN: The patient will be monitored closely for any postprocedural complications. Hopefully this will translate well with symptomatic improvement. THE PATIENT HAS ALLERGY TO PLAVIX. Will initiate Effient in addition to statin and beta-jenny and long acting nitro. We will see how the patient does over the course of today and decide on disposition for timing for discharge. Blane Garces MD JOVANI/TL/ , 09:40 AM , 10:08 AM OLLIE
[2017-06-03] MEDS: PANTOPRAZOLE SODIUM 40 MG VIAL IV PUSH SCH (11:30)
--- NOTE | 2017-06-03 14:12 | PD.CARD.PN ---
Subjective Subjective Remarks post PCI Objective Medications Current Medications Medications (Trade) Dose Ordered Sig/Nate Route Start Time Stop Time Status Last Admin (NS Flush) 2 ml UNSCH PRN IVF 05/31/17 15:15 06/01/17 20:25 (Restoril) 15 mg HS PRN PO 05/31/17 21:00 06/02/17 21:19 (Aspirin Chew) 81 mg DAILY CHEW 06/01/17 09:00 06/03/17 07:53 (Lopressor) 25 mg BID PO 05/31/17 21:00 06/03/17 07:52 (Pravachol) 20 mg DAILY PO 06/01/17 09:00 06/03/17 07:53 ([place] 5-325 Mg) 1 tab Q4H PRN PO 05/31/17 17:15 06/02/17 21:20 (Morphine Inj) 2 mg Q4H PRN IV PUSH 05/31/17 17:15 06/03/17 10:26 (Catapres) 0.1 mg Q6H PRN PO 05/31/17 17:30 (Nitrostat Sl) 0.4 mg Q5M PRN SL 06/02/17 11:00 06/02/17 14:12 (Mag-Al Plus Susp Liq) 30 ml Q6H PRN PO 06/02/17 11:00 (Protonix Inj) 40 mg Q24H IV PUSH 06/02/17 11:30 06/03/17 11:30 (Effient) 10 mg DAILY PO 06/04/17 09:00 (Atropine Inj) 0.5 mg UNSCH PRN IV PUSH 06/03/17 09:45 Sodium Chloride 250 ml @ 500 mls/hr ONCE PRN IV 06/03/17 09:45 06/04/17 09:44 (Zofran Inj) 4 mg Q4H PRN IV PUSH 06/03/17 09:45 (Imdur) 60 mg DAILY@07 PO 06/04/17 07:00 (fentaNYL INJ) 25 mcg Q30M PRN IV PUSH 06/03/17 10:30 06/03/17 13:54 Vital Signs / I&O Vital Signs Date Time Temp Pulse Resp B/P (MAP) Pulse Ox O2 Delivery O2 Flow Rate FiO2 06/03/17 14:10 57 06/03/17 14:09 97.6 56 18 143/93 (110) 96 06/03/17 14:08 97.9 56 18 143/93 (110) 96 06/03/17 14:07 97.9 63 18 143/93 (110) 95 06/03/17 14:00 20 06/03/17 14:00 20 06/03/17 13:15 97.9 59 18 139/82 (101) 94 06/03/17 13:14 97.9 61 18 139/83 (101) 94 06/03/17 09:49 95 Room Air 06/03/17 08:00 Room Air 06/03/17 07:45 97.6 65 18 133/67 (89) 95 06/03/17 06:40 98.4 64 18 142/81 (101) 96 06/03/17 04:07 55 06/03/17 00:05 56 06/02/17 23:50 Room Air 06/02/17 23:49 97.4 57 18 144/83 (103) 100 06/02/17 21:12 21 06/02/17 20:13 Room Air 06/02/17 20:00 Room Air 06/02/17 20:00 97.9 06/02/17 19:45 63 06/02/17 16:00 97.7 61 20 113/85 (94) 95 06/02/17 16:00 55 I/O 06/02/17 06/02/17 06/02/17 06/03/17 06/03/17 06/03/17 07:00 15:00 23:00 07:00 15:00 23:00 Intake Total 480 ml Output Total 1000 ml Balance -520 ml Intake Oral 480 ml Output Urine Total 1000 ml # Voids 3 # Bowel Movements 1 Physical Exam GENERAL: SKIN: Warm and dry. HEAD: Normocephalic. EYES: No scleral icterus. No injection or drainage. NECK: Supple, trachea midline. No JVD or lymphadenopathy. CARDIOVASCULAR: Regular rate and rhythm without murmurs, gallops, or rubs. RESPIRATORY: Breath sounds equal bilaterally. No accessory muscle use. GASTROINTESTINAL: Abdomen soft, non-tender, nondistended. MUSCULOSKELETAL: No cyanosis, or edema. BACK: Nontender without obvious deformity. No CVA tenderness. Laboratory Laboratory Tests Test 3/12/18 07:00 White Blood Count 4.3 TH/MM3 Red Blood Count 4.41 MIL/MM3 Hemoglobin 14.6 GM/DL Hematocrit 40.3 % Mean Corpuscular Volume 91.2 FL Mean Corpuscular Hemoglobin 33.0 PG Mean Corpuscular Hemoglobin Concent 36.2 % Red Cell Distribution Width 13.1 % Platelet Count 166 TH/MM3 Mean Platelet Volume 7.7 FL Prothrombin Time 10.8 SEC Prothromb Time International Ratio 1.1 RATIO Activated Partial Thromboplast Time 43.2 SEC Blood Urea Nitrogen 11 MG/DL Creatinine 0.71 MG/DL Random Glucose 92 MG/DL Total Protein 7.0 GM/DL Albumin 3.5 GM/DL Calcium Level 8.8 MG/DL Alkaline Phosphatase 62 U/L Aspartate Amino Transf (AST/SGOT) 45 U/L Alanine Aminotransferase (ALT/SGPT) 72 U/L Total Bilirubin 0.6 MG/DL Sodium Level 140 MEQ/L Potassium Level 3.9 MEQ/L Chloride Level 106 MEQ/L Carbon Dioxide Level 25.8 MEQ/L Anion Gap 8 MEQ/L Estimat Glomerular Filtration Rate 109 ML/MIN Assessment and Plan Problem List: (1) NSTEMI (non-ST elevated myocardial infarction) ICD Codes: I21.4 - Non-ST elevation (NSTEMI) myocardial infarction (2) Elevated troponin ICD Codes: R74.8 - Abnormal levels of other serum enzymes Status: Acute (3) Unstable angina ICD Codes: I20.0 - Unstable angina Status: Acute (4) CAD (coronary artery disease) ICD Codes: I25.10 - Atherosclerotic heart disease of [place] coronary artery without angina pectoris Status: Chronic (5) Hyperlipidemia ICD Codes: E78.5 - Hyperlipidemia, unspecified Status: Chronic (6) HTN (hypertension) ICD Codes: I10 - Essential (primary) hypertension Status: Chronic Assessment and Plan NSTEMI - PCI MELONIE x2 SVG-RCA asa statin effient isosorbide echo dc planning for tomorrow am Blane Garces MD Jun 03, 2017 14:12
[2017-06-03] MEDS ORDERED: ISOSORBIDE MONONITRATE 60 MG CR TAB (IMDUR) PO ONE (17:00)
--- NOTE | 2017-06-03 17:32 | ECHRPT ---
Indication: chest pain CONCLUSIONS Normal left ventricular size. There is assymetric septal hypertrophy. . The left atrial size is mildly dilated. The aortic root and proximal ascending aorta are not well visualized. Trace mitral valve regurgitation. The aortic prosthesis is not well visualized. Aortic valve mean gradient is 8 mmHg. Aortic valve area is 1.2 cm. There is mild tricuspid valve regurgitation. Trivial pulmonary valve regurgitation. Normal left ventricular size. There is assymetric septal hypertrophy. The left ventricular systolic function is normal with an estimated ejection fraction in the range of 60-65%. BP: 133 / 67 HR: 65 Rhythm: MEASUREMENTS (Male / Female) Normal Values Technical Quality:Good 2D ECHO LV Diastolic Diameter PLAX 4.7 cm 4.2 - 5.9 / 3.9 - 5.3 cm LV Systolic Diameter PLAX 3.4 cm IVS Diastolic Thickness 1.5 cm 0.6 - 1.0 / 0.6 - 0.9 cm LVPW Diastolic Thickness 1.1 cm 0.6 - 1.0 / 0.6 - 0.9 cm LV Relative Wall Thickness 0.5 RV Internal Dim ED PLAX 2.6 cm LVOT Diameter 1.9 cm M-MODE Aortic Root Diameter MM 3.4 cm LA Systolic Diameter MM 4.4 cm LA Ao Ratio MM 1.3 AV Cusp Separation MM 2.0 cm DOPPLER AV Peak Velocity 211.0 cm/s AV Peak Gradient 17.8 mmHg AV Mean Gradient 8.0 mmHg AV Velocity Time Integral 42.9 cm LVOT Peak Velocity 81.9 cm/s LVOT Peak Gradient 2.7 mmHg LVOT Velocity Time Integral 18.7 cm AV Area Cont Eq vti 1.2 cm AV Area Cont Eq pk 1.1 cm Mitral E Point Velocity 98.6 cm/s Mitral A Point Velocity 100.0 cm/s Mitral E to A Ratio 1.0 TR Peak Velocity 266.0 cm/s TR Peak Gradient 28.3 mmHg Right Atrial Pressure 10.0 mmHg Pulmonary Artery Systolic Pressu 38.3 mmHg Right Ventricular Systolic Press 38.3 mmHg FINDINGS LEFT VENTRICLE Normal left ventricular size. There is assymetric septal hypertrophy. The left ventricular systolic function is normal with an estimated ejection fraction in the range of 60-65%. RIGHT VENTRICLE Normal right ventricular size and systolic function. LEFT ATRIUM . The left atrial size is mildly dilated. RIGHT ATRIUM The right atrial size is normal. ATRIAL SEPTUM Normal atrial septal thickness without atrial level shunting by limited color doppler interrogation. AORTA The aortic root and proximal ascending aorta are not well visualized. MITRAL VALVE Structurally normal mitral valve. Trace mitral valve regurgitation. AORTIC VALVE The aortic prosthesis is not well visualized. Aortic valve mean gradient is 8 mmHg. Aortic valve area is 1.2 cm. TRICUSPID VALVE Structurally normal tricuspid valve. There is mild tricuspid valve regurgitation. PULMONARY VALVE Trivial pulmonary valve regurgitation. VESSELS The inferior vena cava is normal in size. PERICARDIUM No pericardial effusion. Blane Garces MD, FACC (Electronically Signed) Final Date:03 June 2017 17:31
[2017-06-03] MEDS: NITROGLYCERIN 0.4 MG SL 25 TABS/BTL SL PRN ×2 (18:10→18:16)
[2017-06-03] MEDS: ACETAMINOPHEN/HYDROcodone 325 MG/5 MG TAB PO PRN ×2 (19:45→23:15)
[2017-06-03] MEDS: LORazepam 2 MG/ML VIAL IV PRN ×2 (20:11→23:59)
[2017-06-03] MEDS ORDERED: NITROGLYCERIN/DEXTROSE 5% 250 ML for chest pain IV PRN (20:30)
[2017-06-04] VITALS (15 sets, daily range): BP systolic 107–136; BP diastolic 58–82; PULSE 55–80; RESP 17–20; TEMP 97.6–98; O2SAT 95–98
[2017-06-04] MEDS: ACETAMINOPHEN/HYDROcodone 325 MG/5 MG TAB PO PRN ×2 (03:33→14:35)
[2017-06-04] MEDS: LORazepam 2 MG/ML VIAL IV PRN (03:39)
[2017-06-04 06:49] LABS: AUTOMATED NEUTROPHIL # 7.1 TH/MM3 (1.8-7.7); EOSINOPHIL % 0.2 % (0.0-4.0); HEMATOCRIT 38.3 % (39.0-51.0); LYMPH % 8.9 % (9.0-44.0); LYMPHOCYTE # 0.8 TH/MM3 (1.0-4.8); MEAN CELL VOLUME 92.4 FL (80.0-100.0); MEAN CORPUSCULAR HEMOGLOBIN 33.9 PG (27.0-34.0); MEAN PLATELET VOLUME 7.8 FL (7.0-11.0); MONO % 6.8 % (0.0-8.0); MONOCYTE # 0.6 TH/MM3 (0-0.9); NEUT % 84.1 % (16.0-70.0); PLATELET COUNT 157 TH/MM3 (150-450); RED BLOOD COUNT 4.15 MIL/MM3 (4.50-5.90); RED CELL DISTRIBUTION WIDTH 12.8 % (11.6-17.2); WHITE BLOOD COUNT 8.5 TH/MM3 (4.0-11.0)
[2017-06-04 07:03] LABS: MEAN CORPUSCULAR HGB CONC 36.7 % (32.0-36.0)
[2017-06-04 07:04] LABS: BICARBONATE 24.4 MEQ/L (21.0-32.0); CALCIUM 8.6 MG/DL (8.5-10.1); CREATININE 0.65 MG/DL (0.60-1.30)
[2017-06-04 07:18] LABS: CHOLESTEROL/ HDL RATIO 3.56 RATIO; HDL CHOLESTEROL 49.6 MG/DL (40.0-60.0)
[2017-06-04] MEDS: ISOSORBIDE MONONITRATE 60 MG CR TAB (IMDUR) PO SCH (07:29)
--- NOTE | 2017-06-04 08:24 | PD.CARD.PN ---
Subjective Subjective Remarks post PCI + chest pain yesterday but improved today Objective Medications Current Medications Medications (Trade) Dose Ordered Sig/Nate Route Start Time Stop Time Status Last Admin (NS Flush) 2 ml UNSCH PRN IVF 05/31/17 15:15 06/01/17 20:25 (Restoril) 15 mg HS PRN PO 05/31/17 21:00 06/02/17 21:19 (Aspirin Chew) 81 mg DAILY CHEW 06/01/17 09:00 06/03/17 07:53 (Lopressor) 25 mg BID PO 05/31/17 21:00 06/03/17 23:15 (Pravachol) 20 mg DAILY PO 06/01/17 09:00 06/03/17 07:53 ([place] 5-325 Mg) 1 tab Q4H PRN PO 05/31/17 17:15 06/04/17 03:33 (Morphine Inj) 2 mg Q4H PRN IV PUSH 05/31/17 17:15 06/03/17 10:26 (Catapres) 0.1 mg Q6H PRN PO 05/31/17 17:30 (Nitrostat Sl) 0.4 mg Q5M PRN SL 06/02/17 11:00 06/03/17 18:16 (Mag-Al Plus Susp Liq) 30 ml Q6H PRN PO 06/02/17 11:00 06/03/17 14:21 (Protonix Inj) 40 mg Q24H IV PUSH 06/02/17 11:30 06/03/17 11:30 (Effient) 10 mg DAILY PO 06/04/17 09:00 (Atropine Inj) 0.5 mg UNSCH PRN IV PUSH 06/03/17 09:45 Sodium Chloride 250 ml @ 500 mls/hr ONCE PRN IV 06/03/17 09:45 06/04/17 09:44 (Zofran Inj) 4 mg Q4H PRN IV PUSH 06/03/17 09:45 (Imdur) 60 mg DAILY@07 PO 06/04/17 07:00 06/04/17 07:29 (fentaNYL INJ) 25 mcg Q30M PRN IV PUSH 06/03/17 10:30 06/03/17 16:38 (Ativan Inj) 1 mg Q4H PRN IV 06/03/17 19:45 06/04/17 03:39 Nitroglycerin/ Dextrose 250 ml @ 1.5 mls/hr TITRATE PRN IV 06/03/17 20:30 06/03/17 21:02 Vital Signs / I&O Vital Signs Date Time Temp Pulse Resp B/P (MAP) Pulse Ox O2 Delivery O2 Flow Rate FiO2 06/04/17 06:00 60 06/04/17 05:00 60 06/04/17 05:00 113/60 (77) 06/04/17 04:00 Room Air 06/04/17 04:00 57 06/04/17 04:00 97.6 63 20 132/78 (96) 96 06/04/17 03:00 110/60 (77) 06/04/17 03:00 58 06/04/17 02:00 132/82 (99) 06/04/17 02:00 60 06/04/17 01:00 119/71 (87) 06/04/17 01:00 60 06/04/17 00:00 98.0 68 20 136/77 (96) 96 06/04/17 00:00 Room Air 06/04/17 00:00 64 06/03/17 23:00 136/74 (94) 06/03/17 23:00 64 06/03/17 22:00 120/68 (85) 06/03/17 22:00 60 06/03/17 21:33 95 21 06/03/17 21:02 61 133/73 06/03/17 21:00 60 06/03/17 21:00 126/70 (88) 06/03/17 20:00 97.6 61 20 133/73 (93) 97 06/03/17 20:00 Room Air 06/03/17 20:00 62 06/03/17 19:00 62 06/03/17 19:00 122/72 (89) 06/03/17 18:31 20 06/03/17 18:10 59 06/03/17 17:40 20 06/03/17 17:07 63 06/03/17 16:10 97.6 61 18 146/87 (106) 98 06/03/17 16:05 59 06/03/17 14:40 97.9 59 18 124/93 (103) 98 06/03/17 14:10 57 06/03/17 14:09 97.6 56 18 143/93 (110) 96 06/03/17 14:08 97.9 56 18 143/93 (110) 96 06/03/17 14:07 97.9 63 18 143/93 (110) 95 06/03/17 14:00 20 06/03/17 13:15 97.9 59 18 139/82 (101) 94 06/03/17 13:14 97.9 61 18 139/83 (101) 94 06/03/17 09:49 95 Room Air I/O 06/03/17 06/03/17 06/03/17 06/04/17 06/04/17 06/04/17 07:00 15:00 23:00 07:00 15:00 23:00 Intake Total 480 ml 240 ml Output Total 500 ml 350 ml Balance -20 ml -110 ml Intake Oral 480 ml 240 ml Output Urine Total 500 ml 350 ml # Bowel Movements 0 Physical Exam GENERAL: SKIN: Warm and dry. HEAD: Normocephalic. EYES: No scleral icterus. No injection or drainage. NECK: Supple, trachea midline. No JVD or lymphadenopathy. CARDIOVASCULAR: Regular rate and rhythm without murmurs, gallops, or rubs. RESPIRATORY: Breath sounds equal bilaterally. No accessory muscle use. GASTROINTESTINAL: Abdomen soft, non-tender, nondistended. MUSCULOSKELETAL: No cyanosis, or edema. BACK: Nontender without obvious deformity. No CVA tenderness. Laboratory Laboratory Tests Test 06/04/17 04:49 White Blood Count 8.5 TH/MM3 Red Blood Count 4.15 MIL/MM3 Hemoglobin 14.0 GM/DL Hematocrit 38.3 % Mean Corpuscular Volume 92.4 FL Mean Corpuscular Hemoglobin 33.9 PG Mean Corpuscular Hemoglobin Concent 36.7 % Red Cell Distribution Width 12.8 % Platelet Count 157 TH/MM3 Mean Platelet Volume 7.8 FL Neutrophils (%) (Auto) 84.1 % Lymphocytes (%) (Auto) 8.9 % Monocytes (%) (Auto) 6.8 % Eosinophils (%) (Auto) 0.2 % Basophils (%) (Auto) 0.0 % Neutrophils # (Auto) 7.1 TH/MM3 Lymphocytes # (Auto) 0.8 TH/MM3 Monocytes # (Auto) 0.6 TH/MM3 Eosinophils # (Auto) 0.0 TH/MM3 Basophils # (Auto) 0.0 TH/MM3 CBC Comment AUTO DIFF Blood Urea Nitrogen 14 MG/DL Creatinine 0.65 MG/DL Random Glucose 122 MG/DL Calcium Level 8.6 MG/DL Sodium Level 136 MEQ/L Potassium Level 3.6 MEQ/L Chloride Level 99 MEQ/L Carbon Dioxide Level 24.4 MEQ/L Anion Gap 13 MEQ/L Estimat Glomerular Filtration Rate 120 ML/MIN Total Creatine Kinase 1909 U/L Creatine Kinase MB 290.3 NG/ML Creatine Kinase MB % 15.2 % Triglycerides Level 120 MG/DL Cholesterol Level 177 MG/DL LDL Cholesterol 103 MG/DL HDL Cholesterol 49.6 MG/DL Cholesterol/HDL Ratio 3.56 RATIO Assessment and Plan Problem List: (1) NSTEMI (non-ST elevated myocardial infarction) ICD Codes: I21.4 - Non-ST elevation (NSTEMI) myocardial infarction (2) Elevated troponin ICD Codes: R74.8 - Abnormal levels of other serum enzymes Status: Acute (3) Unstable angina ICD Codes: I20.0 - Unstable angina Status: Acute (4) CAD (coronary artery disease) ICD Codes: I25.10 - Atherosclerotic heart disease of [place] coronary artery without angina pectoris Status: Chronic (5) Hyperlipidemia ICD Codes: E78.5 - Hyperlipidemia, unspecified Status: Chronic (6) HTN (hypertension) ICD Codes: I10 - Essential (primary) hypertension Status: Chronic Assessment and Plan NSTEMI - PCI MELONIE x2 SVG-RCA He did have distal embolization with ANTONY II flow initially despite adenosine and nitroglycerin intracoronary. Initial EKG unremarkable. managed conservatively given good angiographic result. likely sustained small branch vessel occlusion due to graft atheroemboli. unable to use filter device given small OM and stenosis proximity to the coronary graft anastomosis. CK elevated and EKG both consistent with OM territory subbranch infarct. monitor today. ambulate. gentle hydration. asa statin effient isosorbide echo Blane Garces MD Jun 04, 2017 08:24
[2017-06-04] MEDS ORDERED: SODIUM CHLORID 0.9% 500 ML INJ 500 ML IV ONE (09:00)
[2017-06-04] MEDS: PRAVASTATIN SOD 20 MG TAB PO SCH (09:00)
--- NOTE | 2017-06-04 09:40 | HHI.PR ---
Subjective Remarks still with some exertional cp. also has his usual cp after meals. has esophageal disorder Objective Vitals heart reg lung cta abd s/nt ext no edema Vital Signs Date Time Temp Pulse Resp B/P (MAP) Pulse Ox O2 Delivery O2 Flow Rate FiO2 06/04/17 06:00 60 06/04/17 05:00 60 06/04/17 05:00 113/60 (77) 06/04/17 04:00 Room Air 06/04/17 04:00 57 06/04/17 04:00 97.6 63 20 132/78 (96) 96 06/04/17 03:00 110/60 (77) 06/04/17 03:00 58 06/04/17 02:00 132/82 (99) 06/04/17 02:00 60 06/04/17 01:00 119/71 (87) 06/04/17 01:00 60 06/04/17 00:00 98.0 68 20 136/77 (96) 96 06/04/17 00:00 Room Air 06/04/17 00:00 64 06/03/17 23:00 136/74 (94) 06/03/17 23:00 64 06/03/17 22:00 120/68 (85) 06/03/17 22:00 60 06/03/17 21:33 95 21 06/03/17 21:02 61 133/73 06/03/17 21:00 60 06/03/17 21:00 126/70 (88) 06/03/17 20:00 97.6 61 20 133/73 (93) 97 06/03/17 20:00 Room Air 06/03/17 20:00 62 06/03/17 19:00 62 06/03/17 19:00 122/72 (89) 06/03/17 18:31 20 06/03/17 18:10 59 06/03/17 17:40 20 06/03/17 17:07 63 06/03/17 16:10 97.6 61 18 146/87 (106) 98 06/03/17 16:05 59 06/03/17 14:40 97.9 59 18 124/93 (103) 98 06/03/17 14:10 57 06/03/17 14:09 97.6 56 18 143/93 (110) 96 06/03/17 14:08 97.9 56 18 143/93 (110) 96 06/03/17 14:07 97.9 63 18 143/93 (110) 95 06/03/17 14:00 20 06/03/17 13:15 97.9 59 18 139/82 (101) 94 06/03/17 13:14 97.9 61 18 139/83 (101) 94 06/03/17 09:49 95 Room Air Result Diagram: 06/04/17 0449 06/04/17 0449 Imaging Last Impressions Chest X-Ray 05/31/17 1510 Signed Impressions: Service Date/Time: Wednesday, May 31, 2017 15:28 - CONCLUSION: No acute disease. Xander Liz MD FACR A/P Problem List: (1) Unstable angina ICD Codes: I20.0 - Unstable angina Status: Acute Plan: - Pt is a 71 y/o WM with of CAD s/p CABG x 3 in 1997, unstable angina, hx of aortic valve replacement with bioprosthetic valve and previous stenting. His last cardiac cath was in [address] Carlisle which noted a totally occluded SVG to PDA graft but a patent MCGINNIS to LAD and patent SVG to large diagonal and patent [place] circumflex. Pt follows with Dr. Garces for Cardiology. - Pt presented to the ED at [facility] [place] on 05/31/17 with complaints of intermittent chest pain with radiation to the left arm. The pt reports that he typically has exertional chest pain but that this was now occurring at rest as well. He has been taking extra dose of Imdur and upwards of 5-6 Nitro pills per day for the last 4-5 days. -also seems to be some component of ugi symptoms after meals. family reports this is typical and has had esophageal dilations in past and [facility]/03...2 makayla to svg/rca. Dr Garces believes he has small branch vessel embolization cont ntg. ivf. anticoagulation, bb, statin ?d/c tomorrow if stable. add some medications for gi sx's (2) Elevated troponin ICD Codes: R74.8 - Abnormal levels of other serum enzymes Status: Acute Plan: - See above (3) CAD (coronary artery disease) ICD Codes: I25.10 - Atherosclerotic heart disease of [place] coronary artery without angina pectoris Status: Chronic Plan: - See above. (4) HTN (hypertension) ICD Codes: I10 - Essential (primary) hypertension Status: Chronic Plan: - Home meds resumed - Clonidine PRN (5) Hyperlipidemia ICD Codes: E78.5 - Hyperlipidemia, unspecified Status: Chronic Plan: - Home meds continued Audie Tavera MD Jun 04, 2017 09:40
[2017-06-04] MEDS: ASPIRIN 81 MG CHEW TAB CHEW SCH (10:00)
[2017-06-04] MEDS: METOPROLOL TARTRATE 25 MG TAB PO SCH ×2 (10:00→22:28)
[2017-06-04] MEDS: PRASUGREL 10 MG TAB PO SCH (10:00)
[2017-06-04] MEDS ORDERED: ALUMINUM/MAGNESIUM/SIMETH 30 ML CUP PO ONE (11:00)
[2017-06-04] MEDS ORDERED: PANTOPRAZOLE SOD 40 MG DELAYED RELEASE TAB PO ONE (11:00)
[2017-06-04] MEDS ORDERED: HEPARIN-NS/PF FLUSH BAG 2,000 ML IV FLUSH ONE (11:51)
[2017-06-04] MEDS ORDERED: MIDAZOLAM HCL 2 MG/2 ML VIAL ONE (12:03)
[2017-06-04] MEDS: ALUMINUM/MAGNESIUM/SIMETH 30 ML CUP PO SCH ×2 (13:30→18:29)
[2017-06-04] MEDS ORDERED: PRASUGREL 10 MG TAB ONE (13:32)
--- NOTE | 2017-06-04 13:39 | CATHPROC ---
[facility] HIS Report Study Information Study Number Admission Scheduled Start Study Start [id number] May 31 2017 4:38PM 06/04/2017 Jun 04 2017 11:34AM [place] Service Cardiac Catheterization Admit Source Facility Department Emergency department [facility] - Corporate Compliance Manager Physician and Clinical Staff Initial Blane Danielle Cafeteria Or Lunchroom Checker Tariq Mistry,MILVIA Cafeteria Or Lunchroom Checker Thomas Aceves,RN Recorder Cedric Busch,RT(R) Scrub Carlita James,ADJUNCT PROFESSOR OF LAW TECH2 Procedures Performed Procedure Location (Site) Vessel Name Coronary Angiograms SVG-OM CIRC Coronary Angiograms Gft. Stump 1 SVG Graft Drug Eluting Inflatio SVG-OM CIRC L Heart Cath PTCA SVG-OM CIRC Wire insertion Fem Art (left) Femoral Art Equipment Time Employment Educational Coord Description Size Mfg Part Number Used/Scraped WIRE, JAGRUTI YEPEZ 12 [id number] 12:17 [employer] 300CM Used 300CM *[id number] TRANSDUCER, TRUWAVE [id number] 12:04 GARNER VELOZ * Used W/STOCKCOCK *[id number] 12:24 [employer] BALLOON, 2.0 20MM EMERGE MR 2.0 20MM Used *[id number] BALLOON, 2.0 X 15 MAVERICK [id number] 12:33 [employer] 2.0 X 15 Used (OTW) *[id number] [id number] *[id number] *[id number] 534-572T *[id number] 534-539T *[id number] 12:04 [employer] IND[employer] PACK, CCL CUSTOM * Used *[id number] 12:04 MEDLINE PACER PEN, SKIN DUAL W/ RULER * Used *[id number] BALLOON, 2.5 X 20MM NC [id number] 12:50 MEDTR[employer] 20MM Used EUPHORA *[id number] 13:09 [employer] STENT, 2.5 34MM BEAR 2.5 34MM Used *[id number] 13:05 [employer] STENT, 2.5 38MM BEAR 2.5 38MM [id number] Used 13:14 [employer] STENT, 2.75 38MM BEAR 2.75 38MM [id number] Used [id number] 13:16 [employer] STENT, 3.0 22MM BEAR 3.0 22MM Used *[id number] 12:26 [employer] 30 LG INDEFLATOR Used *[id number] 12:11 [employer] MEDICAL SHEATH, FR6.5 PRELUDE 11CM FR 6.5 038ACT Used *[id number] 12:04 [employer] WIRE, 3MMJ .035 180CM 180CM Used *[id number] 12:04 NAMIC MANIFOLD, 4 PORT * Used *[id number] 12:04 [employer] OMNIPAQUE, 350 MG, 150ML 150ML [id number] Used [id number] 12:04 [facility] BLANKET,WARM AIR CCL * Used *[id number] [id number] 12:04 TERUMFF[employer] MEDICAL SHEATH, FR5 TERUMO (10CM) FR 5 Used *[id number] WIRE, RUNTHROUGH NS FLOPPY 25-1011 12:14 [employer]ICAL 180CM Used .014 180CM *[id number] WIRE, RUNTHROUGH NS FLOPPY 25-1013 12:38 [employer] 300CM Used .014 300CM *[id number] 12:18 [employer] CATHETER, FR6 GUIDELINER FR 6 5571 *[id number] Used Equipment Model, Serial, Lot Number and Expiration Data Description Model Number Serial Number Lot Number Expiration Date STENT, 2.5 34MM BEAR [id number] 10-15-2018 STENT, 2.5 38MM BEAR [id number] 01-23-2019 STENT, 2.75 38MM BEAR [id number] 11-20-2018 STENT, 3.0 22MM BEAR [id number] 02-27-2019 History: Current Medications Medication Dosage/Unit Route Frequency Last Date/Time Taken Imdur LOPRESSOR Statins (any) HCTZ History: Allergies Allergy Reaction simvastatin atorvastatin clopidogrel History: Risk Factors Family History of Hypertension Dyslipidemia Previous [place] Previous Heart Failure Premature CAD Yes Yes No Yes No Prior Valve Prior PCI Prior PCIDate Prior CABG Prior CABGDate Surgery Yes Yes 06/03/2017 Yes 05/23/1997 Cerebrovascular Peripheral Artery Chronic Lung On Dialysis Diabetes Disease Disease Disease No No No No No History: Risk Factors Selection Items Hyperlipidemia History: Symptoms/Diagnosis Selection Items Chest pain History: CV Disease Selection Items Known CAD History: Stress Tests Stress or Imaging Studies Performed Yes Standard Exercise Stress Test No Stress Echo No Stress Test SPECT Stress Test SPECT Result Yes Negative Stress Test CMR No Cardiac CTA Coronary Calcium Score No No History: Other Disease Selection Items CAD HTN History: Other Current Smoker Method Quit No Cigarettes 52 Years Ago Labs Hgb (g/dl) Hct (%) RBC (MIL/MM3) WBC (l/cumm) Platelets (thousands) 11.60-17.00 35.00-51.00 4.00-5.90 4.00-11.00 150.00-450.00 15.3 42.5 4.6 4.8 178 Glucose (mg/dl) BUN (mg/dl) Creatinine (mg/dl) BUN:Creatinine (1:x) 74.00-106.00 7.00-18.00 0.50-1.30 10.00-20.00 107 11 0.7 15.7 Na (meq/l) K (meq/l) Cl (meq/l) CO2 (mmol/L) Ca (mg/dl) 136.00-145.00 3.50-5.10 98.00-107.00 21.00-32.00 8.50-10.10 141 3.6 106 28.3 9.2 PT (sec) PTT (sec) INR (PTT:PT) 9.80-11.60 24.30-30.10 0.90-1.10 10.3 25.6 1 Troponin I (ng/ml) CPK (u/l) 0.02-0.05 26.00-308.00 0.09 76 Medication Medication Total Dose (Bolus/Oral) Medication Total Dosage/Unit 1% XYLOCAINE 20 mL EFFIENT 60 mg FENTANYL 50 mcg HEPARIN 7000 units NTG (IC) 1000 mcg Medications (Bolus/Oral) Medication Time Given Dosage/Unit Administered By Reason FENTANYL 06/04/2017 12:03:38 PM 25 mcg Thomas Aceves 25 mcg FENTANYL given in lab by Thomas Aceves, RN in Left Antecubital via Peripheral IV. 1% XYLOCAINE 06/04/2017 12:06:37 PM 20 mL Blane Garces 20 mL 1% XYLOCAINE given in lab by Blane Garces in Left Groin via Subcutaneous. HEPARIN 06/04/2017 12:12:57 PM 5000 units Thomas Aceves 5000 units HEPARIN given in lab by Thomas Aceves RN in Left Antecubital via Peripheral IV. NTG (IC) 06/04/2017 12:48:25 PM 200 mcg Dez, Blane 200 mcg NTG (IC) given in lab by Blane Garces via Intra-coronary. NTG (IC) 06/04/2017 12:53:21 PM 200 mcg Minor, Blane 200 mcg NTG (IC) given in lab by Blane Garces via Intra-coronary. NTG (IC) 06/04/2017 12:55:42 PM 200 mcg Dez, Blane 200 mcg NTG (IC) given in lab by Blane Garces via Intra-coronary. FENTANYL 06/04/2017 1:00:36 PM 25 mcg Tariq Mistry 25 mcg FENTANYL given in lab by Tariq Mistry RN in Left Antecubital via Peripheral IV. HEPARIN 06/04/2017 1:04:25 PM 2000 units Tariq Mistry 2000 units HEPARIN given in lab by Tariq Mistry RN in Left Antecubital via Peripheral IV. NTG (IC) 06/04/2017 1:08:30 PM 200 mcg Dez, Blane 200 mcg NTG (IC) given in lab by Blane Garces via Intra-coronary. NTG (IC) 06/04/2017 1:19:16 PM 200 mcg Dez, Blane 200 mcg NTG (IC) given in lab by Blane Garces via Intra-coronary. EFFIENT 06/04/2017 1:33:06 PM 60 mg Tariq Mistry 60 mg EFFIENT given in lab by Tariq Mistry RN via Oral. Medication (Drip) Medication Time Given Dosage/Unit Concentration/Unit Diluent (ml) Solutio n IV Solutions 06/04/2017 11:56:34 AM 0 mL (IV) 500 NaCl .9 IV Solutions given in lab by Tariq Mistry RN in Left Antecubital via Peripheral IV. Pump/Drip Flow = 20 ml/hr using NaCl .9. Initial Case Assessment Cardiovascular HR Rhythm NIBP Chest Pain 68 Sinus 133/76 1 Edema Present Skin color Skin None Normal Warm Dry Circulatory - Right Pulses Dorsalis Pedis Femoral 2 2 Scale (0,1,2,3,4,d) Circulatory - Left Pulses Dorsalis Pedis Femoral 2 2 Scale (0,1,2,3,4,d) Neurological State Oriented to time-place- Alert Moves all extremities person Respiration - General Respiration Rate SpO2 (%) O2 (lpm) (B/min) 16 95 0 Final Case Assessment Cardiovascular HR Rhythm NIBP Chest Pain 67 SINUS 133/77 0 Edema Present Skin color Skin None Normal Warm Dry Circulatory - Right Pulses Dorsalis Pedis Femoral 2 2 Scale (0,1,2,3,4,d) Circulatory - Left Pulses Dorsalis Pedis Femoral 2 2 Scale (0,1,2,3,4,d) Neurological State Oriented to time-place- Alert Moves all extremities person Respiration - General Respiration Rate SpO2 (%) O2 (lpm) (B/min) 17 98 0 Chronological Log Time Study Chronological Log 11:45:53 Patient Name, D.O.B, / Armband Verified By R.N. Vitals capture started with the following parameters, Patient=Adult, Interval=5 min, Initial Pr nqgfxi=317 mmHg, 11:49:01 Deflation Rate=5 mmHg, Cuff placed on Right Arm 11:49:49 HR=62 bpm, LTMG=145/79 mmhg, SpO2=95.0 %, Resp=17 B/min, Pain=0, Mike=10, Oleary=2 11:54:44 HR=68 bpm, BRMK=022/73 mmhg, SpO2=95.0 %, Resp=20 B/min, Pain=0, Mike=10, Oleary=2 11:55:38 Patient arrived via Bed. 11:56:00 Consent signed by the physician and the patient and verified by the Corporate Compliance Manager staff. 11:56:01 Pre-op and post- op instructions given; patient acknowledges understanding of instructions. 11:56:01 Verbal Stimulation=2 Physical Stimulation=2 Airway=2 Respiration=2 TOTAL=8. (0=absent, 1=li mited, 2=present) 11:56:02 Presedation assessment performed by Corporate Compliance Manager RN. 11:56:25 Patient has been NPO for Less than 6Hrs. 11:56:26 Skin Breakdown- none per patient. 11:56:29 Patient Warmer Placed on the Table. 11:56:31 Mikael Prominences Protected 11:56:32 A # 20 IV was noted in the Antecubital (left). Grade = 0 IV Solutions given in lab by Tariq Mistry, RN in Left Antecubital via Peripheral IV. Pump/Dri p Flow = 20 ml/hr using 11:56:34 NaCl .9. 11:56:35 History and physical on the chart or being dictated. Assessment: Initial Case, HR=68 BPM, Rhythm=Sinus, JOYI=858/76 mmhg, Chest Pain=1, Edema=None, Color=Normal, Skin = Warm, Dry Right Pulses: Carmelo Ped=2, Femoral=2 11:56:35 Left Pulses: Carmelo Ped=2, Femoral=2 Neurological: State=Alert, Ox3, LOZANO Respiration: Resp=16 B/min, SpO2=95 %, O2=0 lpm 11:56:46 Reference ECG taken 11:56:50 Bilateral groins prepped with 2% chlorhexidine, and draped after a 3 minute waiting time. 11:58:36 Pressure channel 1 zeroed. 11:59:28 MD paged 11:59:29 MD responded 11:59:43 HR=64 bpm, JJII=246/76 mmhg, SpO2=95.0 %, Resp=17 B/min, Pain=0, Mike=10, Oleary=2 12:00:19 A # 20 IV was noted in the Antecubital (right). Grade = 0 12:03:13 MD arrived. 12:03:38 25 mcg FENTANYL given in lab by Thomas Aceves, RN in Left Antecubital via Peripheral IV. 12:04:42 HR=61 bpm, KOUO=907/74 mmhg, SpO2=95.0 %, Resp=19 B/min, Pain=0, Mike=10, Oleary=2 Time Out. Correct patient, correct procedure, correct physician, power injector not loaded with contrast with surgical 12:06:27 team present. Time Out Concurred by MD and individual staff in procedure. 12:06:36 Case Start 12:06:37 20 mL 1% XYLOCAINE given in lab by Blane Garces in Left Groin via Subcutaneous. 12:07:54 Access site was Left Femoral Artery. 12:08:02 A SHEATH, FR5 TERUMO (10CM) FR 5 was advanced into the Fem Art (left) using the Percutaneou s technique. A LCB INFINITI CATHETER FR 5 was advanced over a wire. OMNIPAQUE, 350 MG, 150ML 150ML was used for 12:08:44 injections. 12:09:29 The Gft. Stump 1 was injected and visualized at various angles. OMNIPAQUE, 350 MG, 150ML 15 0ML used. 12:09:43 HR=62 bpm, VBXO=854/65 mmhg, SpO2=94.0 %, Resp=18 B/min, Pain=0, Mike=10, Oleary=2 12:10:13 Catheter was removed A SHEATH, FR6.5 PRELUDE 11CM FR 6.5 was exchanged in the Fem Art (left). This was necessary in order to 12:10:43 accomodate a larger catheter. 12:12:29 A LCB GUIDE CATHETER FR 6 was advanced over a wire. OMNIPAQUE, 350 MG, 150ML 150ML was used for injections. 12:12:57 5000 units HEPARIN given in lab by Thomas Aceves RN in Left Antecubital via Peripheral IV. 12:13:31 A WIRE, RUNTHROUGH NS FLOPPY .014 180CM 180CM was inserted via Fem Art (left). 12:14:43 HR=63 bpm, VGSX=116/72 mmhg, SpO2=93.0 %, Resp=15 B/min, Pain=0, Mike=10, Oleary=2 12:17:53 Wire removed 12:18:00 A CATHETER, FR6 GUIDELINER FR 6 was advanced over a wire. contrast was used for injections. 12:18:55 A WIRE, [email or web address] MIRACLEBROS 12 300CM 300CM was inserted via Fem Art (left). 12:19:42 HR=64 bpm, BHVZ=733/71 mmhg, SpO2=94.0 %, Resp=15 B/min, Pain=0, Mike=10, Oleary=2 12:21:20 Interventional wire has crossed the lesion 12:24:43 HR=65 bpm, GTYZ=580/77 mmhg, SpO2=95.0 %, Resp=14 B/min, Pain=0, Mike=10, Oleary=2 A BALLOON, 2.0 20MM EMERGE MR 2.0 20MM was inserted over WIRE, ASAHI MIRACLEBROS 12 300CM 300CM via the 12:25:25 SVG-OM. A BALLOON, 2.0 20MM EMERGE MR 2.0 20MM over a WIRE, ASAAR MIRACLEBROS 12 300CM 300CM in the SVG -OM 12:28:29 was inflated using a 30 LG INDEFLATOR at 12 lg for 10 sec. A BALLOON, 2.0 20MM EMERGE MR 2.0 20MM over a WIRE, [facility] MIRACLEBROS 12 300CM 300CM in the SVG -OM 12:28:53 was inflated using a 30 LG INDEFLATOR at 12 lg for 10 sec. A BALLOON, 2.0 20MM EMERGE MR 2.0 20MM over a WIRE, [facility] MIRACLEBROS 12 300CM 300CM in the SVG -OM 12:29:07 was inflated using a 30 LG INDEFLATOR at 12 lg for 10 sec. A BALLOON, 2.0 20MM EMERGE MR 2.0 20MM over a WIRE, [facility] MIRACLEBROS 12 300CM 300CM in the SVG -OM 12:29:21 was inflated using a 30 LG INDEFLATOR at 12 lg for 10 sec. 12:29:44 HR=62 bpm, EOLC=088/73 mmhg, SpO2=96.0 %, Resp=15 B/min, Pain=0, Mike=10, Oleary=2 A BALLOON, 2.0 20MM EMERGE MR 2.0 20MM over a WIRE, [facility] MIRACLEBROS 12 300CM 300CM in the SVG -OM 12::44 was inflated using a 30 LG INDEFLATOR at 12 lg for 10 sec. 12:30:39 Balloon Removed. A BALLOON, 2.0 X 15 MAVERICK (OTW) 2.0 X 15 was inserted over WIRE, [facility] MIRACLEBROS 12 300CM 300CM via 12:32:52 the SVG-OM. 12:34:09 Activated Clotting Time Drawn A BALLOON, 2.0 X 15 MAVERICK (OTW) 2.0 X 15 was inserted over WIRE, [facility] MIRACLEBROS 12 300CM 300CM via 12:34:15 the SVG-OM. 12:34:45 HR=65 bpm, TYQG=596/77 mmhg, SpO2=96.0 %, Resp=18 B/min, Pain=0, Mike=10, Oleary=2 12:38:28 The previous wire was exchanged for a WIRE, RUNTHROUGH NS FLOPPY .014 300CM 300CM. 12:39:48 HR=65 bpm, HIVJ=096/80 mmhg, SpO2=97.0 %, Resp=18 B/min, Pain=0, Mike=10, Oleary=2 12:39:57 ACT (Normal Range 90-180) = 280 12:40:47 Wire removed A BALLOON, 2.0 X 15 MAVERICK (OTW) 2.0 X 15 over a WIRE, RUNTHROUGH NS FLOPPY .014 300CM 300CM in the 12:44:28 SVG-OM was inflated using a 30 LG INDEFLATOR at 14 lg for 10 sec. 12:44:45 HR=64 bpm, KDRN=551/84 mmhg, SpO2=97.0 %, Resp=17 B/min, Pain=0, Mike=10, Oleary=2 A BALLOON, 2.0 X 15 MAVERICK (OTW) 2.0 X 15 over a WIRE, RUNTHROUGH NS FLOPPY .014 300CM 300CM in the 12:45:17 SVG-OM was inflated using a 30 LG INDEFLATOR at 14 lg for 10 sec. A BALLOON, 2.0 X 15 MAVERICK (OTW) 2.0 X 15 over a WIRE, RUNTHROUGH NS FLOPPY .014 300CM 300CM in the 12:45:44 SVG-OM was inflated using a 30 LG INDEFLATOR at 14 lg for 10 sec. A BALLOON, 2.0 X 15 MAVERICK (OTW) 2.0 X 15 over a WIRE, RUNTHROUGH NS FLOPPY .014 300CM 300CM in the 12:45:53 SVG-OM was inflated using a 30 LG INDEFLATOR at 14 lg for 10 sec. A BALLOON, 2.0 X 15 MAVERICK (OTW) 2.0 X 15 over a WIRE, RUNTHROUGH NS FLOPPY .014 300CM 300CM in the 12:46:31 SVG-OM was inflated using a 30 LG INDEFLATOR at 14 lg for 10 sec. A BALLOON, 2.0 X 15 MAVERICK (OTW) 2.0 X 15 over a WIRE, RUNTHROUGH NS FLOPPY .014 300CM 300CM in the 12:46:34 SVG-OM was inflated using a 30 LG INDEFLATOR at 14 lg for 10 sec. A BALLOON, 2.0 X 15 MAVERICK (OTW) 2.0 X 15 over a WIRE, RUNTHROUGH NS FLOPPY .014 300CM 300CM in the 12:46:48 SVG-OM was inflated using a 30 LG INDEFLATOR at 14 lg for 10 sec. 12:47:11 Balloon Removed. 12:48:25 200 mcg NTG (IC) given in lab by Blane Garces via Intra-coronary. A BALLOON, 2.5 X 20MM NC EUPHORA 20MM was inserted over WIRE, RUNTHROUGH NS FLOPPY .014 300CM 3 00CM 12:49:00 via the SVG-OM. 12:49:48 HR=67 bpm, UIEC=061/79 mmhg, SpO2=98.0 %, Resp=19 B/min, Pain=0, Mike=10, Oleary=2 A BALLOON, 2.5 X 20MM NC EUPHORA 20MM over a WIRE, RUNTHROUGH NS FLOPPY .014 300CM 300CM in the 12:49:55 SVG-OM was inflated using a 30 LG INDEFLATOR at 4 lg for 17 sec. A BALLOON, 2.5 X 20MM NC EUPHORA 20MM over a WIRE, RUNTHROUGH NS FLOPPY .014 300CM 300CM in the 12:50:23 SVG-OM was inflated using a 30 LG INDEFLATOR at 10 lg for 15 sec. A BALLOON, 2.5 X 20MM NC EUPHORA 20MM over a WIRE, RUNTHROUGH NS FLOPPY .014 300CM 300CM in the 12:50:50 SVG-OM was inflated using a 30 LG INDEFLATOR at 14 lg for 12 sec. A BALLOON, 2.5 X 20MM NC EUPHORA 20MM over a WIRE, RUNTHROUGH NS FLOPPY .014 300CM 300CM in the 12:51:10 SVG-OM was inflated using a 30 LG INDEFLATOR at 14 lg for 10 sec. 12:51:24 NIBP STAT measurement started. A BALLOON, 2.5 X 20MM NC EUPHORA 20MM over a WIRE, RUNTHROUGH NS FLOPPY .014 300CM 300CM in the 12:51:27 SVG-OM was inflated using a 30 LG INDEFLATOR at 14 lg for 5 sec. A BALLOON, 2.5 X 20MM NC EUPHORA 20MM over a WIRE, RUNTHROUGH NS FLOPPY .014 300CM 300CM in the 12:51:47 SVG-OM was inflated using a 30 LG INDEFLATOR at 14 lg for 10 sec. 12:52:01 Balloon Removed. 12:52:03 HR=75 bpm, TVMD=159/80 mmhg, SpO2=98.0 %, Resp=22 B/min, Pain=0, Mike=10, Oleary=2 12:53:21 200 mcg NTG (IC) given in lab by Blane Garces via Intra-coronary. 12:53:44 The SVG-OM was injected and visualized at various angles. OMNIPAQUE, 350 MG, 150ML 150ML us ed. 12:54:47 HR=70 bpm, KBRQ=941/79 mmhg, SpO2=98.0 %, Resp=20 B/min, Pain=0, Mike=10, Oleary=2 12:55:42 200 mcg NTG (IC) given in lab by Blane Garces via Intra-coronary. A BALLOON, 2.0 X 15 MAVERICK (OTW) 2.0 X 15 was inserted over WIRE, RUNTHROUGH NS FLOPPY .014 3 00CM 12:58:01 300CM via the SVG-OM. A BALLOON, 2.0 X 15 MAVERICK (OTW) 2.0 X 15 over a WIRE, RUNTHROUGH NS FLOPPY .014 300CM 300CM in the 12:58:34 SVG-OM was inflated using a 30 LG INDEFLATOR at 10 lg for 40 sec. A BALLOON, 2.0 X 15 MAVERICK (OTW) 2.0 X 15 over a WIRE, RUNTHROUGH NS FLOPPY .014 300CM 300CM in the 12:59:27 SVG-OM was inflated using a 30 LG INDEFLATOR at 10 lg for 40 sec. 12:59:46 HR=71 bpm, KFGQ=796/81 mmhg, SpO2=97.0 %, Resp=23 B/min, Pain=0, Mike=10, Oleary=2 A BALLOON, 2.0 X 15 MAVERICK (OTW) 2.0 X 15 over a WIRE, RUNTHROUGH NS FLOPPY .014 300CM 300CM in the 12:59:54 SVG-OM was inflated using a 30 LG INDEFLATOR at 14 lg for 10 sec. A BALLOON, 2.0 X 15 MAVERICK (OTW) 2.0 X 15 over a WIRE, RUNTHROUGH NS FLOPPY .014 300CM 300CM in the 13:00:16 SVG-OM was inflated using a 30 LG INDEFLATOR at 14 lg for 10 sec. A BALLOON, 2.0 X 15 MAVERICK (OTW) 2.0 X 15 over a WIRE, RUNTHROUGH NS FLOPPY .014 300CM 300CM in the 13:00:26 SVG-OM was inflated using a 30 LG INDEFLATOR at 14 lg for 10 sec. 13:00:36 25 mcg FENTANYL given in lab by Tariq Mistry RN in Left Antecubital via Peripheral IV. A BALLOON, 2.0 X 15 MAVERICK (OTW) 2.0 X 15 over a WIRE, RUNTHROUGH NS FLOPPY .014 300CM 300CM in the 13:00:44 SVG-OM was inflated using a 30 LG INDEFLATOR at 14 lg for 10 sec. A BALLOON, 2.0 X 15 MAVERICK (OTW) 2.0 X 15 over a WIRE, RUNTHROUGH NS FLOPPY .014 300CM 300CM in the 13:01:01 SVG-OM was inflated using a 30 LG INDEFLATOR at 14 lg for 10 sec. 13:01:48 Balloon Removed. 13:03:10 The SVG-OM was injected and visualized at various angles. OMNIPAQUE, 350 MG, 150ML 150ML us ed. A STENT, 2.5 38MM BEAR 2.5 38MM was advanced through a LCB GUIDE CATHETER FR 6 over a WIRE, 13:04:01 RUNTHROUGH NS FLOPPY .014 300CM 300CM. 13:04:25 2000 units HEPARIN given in lab by Tariq Mistry RN in Left Antecubital via Peripheral IV . 13:04:47 HR=65 bpm, MEKC=600/77 mmhg, SpO2=98.0 %, Resp=16 B/min, Pain=0, Mike=10, Oleary=2 A STENT, 2.5 38MM BEAR 2.5 38MM was deployed using a 30 LG INDEFLATOR at 8 atmospheres for 14 seconds in 13:05:31 the SVG-OM. 13:06:14 Re-inflated the stent balloon in the SVG-OM to 16 LG for 10 seconds. 13:06:30 Delivery device removed 13:08:30 200 mcg NTG (IC) given in lab by Blane Garces via Intra-coronary. A STENT, 2.5 34MM BEAR 2.5 34MM was advanced through a LCB GUIDE CATHETER FR 6 over a WIRE, 13:08:48 RUNTHROUGH NS FLOPPY .014 300CM 300CM. 13:09:46 HR=65 bpm, JZQQ=274/71 mmhg, SpO2=96.0 %, Resp=14 B/min, Pain=0, Mike=10, Oleary=2 A STENT, 2.5 34MM BEAR 2.5 34MM was deployed using a 30 LG INDEFLATOR at 18 atmospheres for 10 seconds in 13:10:12 the SVG-OM. 13:10:47 Re-inflated the stent balloon in the SVG-OM to 16 LG for 10 seconds. 13:11:38 Delivery device removed A STENT, 2.75 38MM BEAR 2.75 38MM was advanced through a LCB GUIDE CATHETER FR 6 over a WIRE, 13:13:17 RUNTHROUGH NS FLOPPY .014 300CM 300CM. A STENT, 2.75 38MM BEAR 2.75 38MM was deployed using a 30 LG INDEFLATOR at 17 atmospheres for 14 seconds 13:13:49 in the SVG-OM. 13:14:07 Delivery device removed 13:14:47 HR=73 bpm, GUVZ=972/80 mmhg, SpO2=97.0 %, Resp=18 B/min, Pain=0, Mike=10, Oleary=2 A STENT, 3.0 22MM BEAR 3.0 22MM was advanced through a LCB GUIDE CATHETER FR 6 over a WIRE, 13:15:44 RUNTHROUGH NS FLOPPY .014 300CM 300CM. A STENT, 3.0 22MM BEAR 3.0 22MM was deployed using a 30 LG INDEFLATOR at 18 atmospheres for 10 seconds in 13:17:25 the SVG-OM. 13:17:54 Delivery device removed 13:18:40 Activated Clotting Time Drawn 13:19:16 200 mcg NTG (IC) given in lab by Blane Garces via Intra-coronary. 13:19:46 HR=70 bpm, GCIX=048/72 mmhg, SpO2=98.0 %, Resp=14 B/min, Pain=0, Mike=10, Oleary=2 13:19:58 The SVG-OM was injected and visualized at various angles. OMNIPAQUE, 350 MG, 150ML 150ML u sed. 13:20:44 Wire removed 13::02 Catheter was removed 13::03 Catheter was removed 13::10 Case End 13:25:20 HR=67 bpm, JNVG=618/77 mmhg, SpO2=98.0 %, Resp=17 B/min, Pain=0, Mike=10, Oleary=2 13:26:44 In the Fem Art (left) the sheath was sutured in place by Carlita James, ADJUNCT PROFESSOR OF LAW TECH2. 13:26:57 Sterile dressing applied to site Assessment: Final Case, HR=67 BPM, Rhythm=SINUS, ZVQP=964/77 mmhg, Chest Pain=0, Edema=None, Color=Normal, Skin = Warm, Dry Right Pulses: Carmelo Ped=2, Femoral=2 13:29:25 Left Pulses: Carmelo Ped=2, Femoral=2 Neurological: State=Alert, Ox3, LOZANO Respiration: Resp=17 B/min, SpO2=98 %, O2=0 lpm 13:29:42 Vitals capture stopped. 13:31:06 No case complications noted. 13:31:07 Cine recording checked. 13:31:09 Bedside Report will be given. 13:31:23 Implantable Device card placed in patient's chart. 13:31:36 A Left Heart Cath was performed. 13:31:[address] [facility] 13:33:06 60 mg EFFIENT given in lab by Tariq Mistry, MILVIA via Oral. End Study - Contrast Media Used In Study Contrast Total Opened (mL) Total Used (mL) Total Wasted (mL) Omnipaque 150 120 30 End Study - Maximum Contrast Load Max Contrast Load (mL) 584.4 End Study - Radiation Exposure Fluoro Time (minutes) 20.9 End Study - Patient Disposition Complications Transferred To Interventional Outcome No Telemetry Bed successful
--- NOTE | 2017-06-04 14:16 | MA ---
cc: Blane Garces MD 06/04/2017 INDICATION: Non-ST elevation myocardial infarction, acute recurrence of chest pain post PCI. PROCEDURE PERFORMED: 1. Fluoroscopy with interpretation. 2. Coronary artery bypass graft angiography. 3. Percutaneous intervention with drug eluting stents to the saphenous vein graft to the obtuse marginal branch. HOSPITAL COURSE: The patient developed onset of chest pain. Initially we thought it may be secondary to some small vessel distal embolization. He had continued to have progressive symptoms which abruptly got worse here midmorning. Electrocardiogram did not show any ladonna ST elevation this morning but looked like last night there were some EKG changes. We elected, given the onset of worsening symptoms, to bring him back to the catheterization lab. METHOD: The risks, benefits and alternatives were discussed with the patient. The patient understood and consented to the procedure. The patient was brought to the cardiac catheterization lab and placed on the catheterization table. The left groin was prepped and draped in sterile fashion. The left groin was anesthetized with 2% lidocaine. The left common femoral artery was cannulated and a 6 [place] 11 cm sheath was placed without difficulty. CORONARY BYPASS GRAFT ANGIOGRAPHY: Saphenous vein graft to the obtuse marginal branch is now 100% occluded proximally. PERCUTANEOUS INTERVENTION: A LCB guide catheter was engaged into the saphenous vein graft. We had difficulty navigating the floppy wire. We used a 12 gram tip 300 cm [employer] wire to advance into the mid to distal segment of the graft. We used a guide guideliner catheter for additional support. We did a selective angiography through a 2.0 x 15 mm over the wire balloon to confirm intraluminal placement. We advanced then a 300 cm Terumo run through floppy down to the distal segment of the obtuse marginal subbranch. We did several inflations of the entire length of the vein graft from distal to proximally at 10 atmospheres. We repeatedly administered nitroglycerin. We finally did reestablish ANTONY 2 flow. There was significant thrombus throughout the entire length of the graft. We gave him a little time to see if he could try to clear some but we elected to proceed with endovascular stenting. A 2.5 x 38 mm Resolute Thomas stent was advanced on the distal vein graft and deployed. A 2.5 x 34 mm Resolute [place] was deployed in the midsegment of the vein graft. A 2.75 x 38 mm Resolute [place] was deployed in the proximal midsegment and a 3.0 x 22 mm RX Resolute [place] was deployed in the proximal segment. Repeat angiography now showed restorationist of ANTONY 3 flow and no significant residual stenosis. The distal vessel actually looked good. There was a small subbranch which still had some residual stenosis but the remainder of the vessel was widely patent. Guide catheter was removed. Sheath was sewn into place to be removed pending hemostasis. CONCLUSIONS: 1. Occluded saphenous vein graft to the obtuse marginal branch. 2. Successful percutaneous intervention with drug eluting stents to the saphenous vein graft to the obtuse marginal branch. PLAN: Will check a P2Y12 assay just to confirm he has appropriate platelet inhibition. Symptoms have now resolved. Will monitor closely for any postprocedural complications and hopefully anticipate discharge in the next 24-48 hours. MD JOVANI Peterson/TL/ , 01:35 PM , 02:07 PM MTDJose Armando
[2017-06-04] MEDS: SODIUM CHLOR 0.9% 1000 ML INJ 1,000 ML IV SCH (15:00)
[2017-06-04] MEDS ORDERED: IOHEXOL 350 MG/ML 100 ML BTL (for Cath Lab) OTHER ONE (18:51)
[2017-06-04] MEDS ORDERED: IOHEXOL 350 MG/ML 50 ML BTL (for Cath Lab) OTHER ONE (18:51)
--- NOTE | 2017-06-04 20:39 | EKG ---
Date Performed: 06/03/2017 Time Performed: 10:32:18 PTAGE: 71 years EKG: Sinus bradycardia with 1st degree A-V block. Possible inferior infarct - age undetermined A nteroseptal ST changes Abnormal ECG Since the PREVIOUS TRACING , no significant change noted DOCTOR: Nithin Scott Interpretating Date/Time 06/04/2017 20:37:49
[2017-06-04] MEDS: PANTOPRAZOLE SOD 40 MG DELAYED RELEASE TAB PO SCH (22:28)
[2017-06-05] VITALS (22 sets, daily range): BP systolic 107–135; BP diastolic 68–79; PULSE 64–109; RESP 16–18; TEMP 97.8–98.6; O2SAT 95–98
[2017-06-05] MEDS: SODIUM CHLOR 0.9% 1000 ML INJ 1,000 ML IV SCH ×2 (01:00→11:00)
[2017-06-05] MEDS: ISOSORBIDE MONONITRATE 60 MG CR TAB (IMDUR) PO SCH (05:33)
[2017-06-05] MEDS ORDERED: AMIODARONE INJ 150 MG in DEXTROSE 5% IN WATER 100ML INJ 100 ML IV ONE ×2 (07:54)
[2017-06-05] MEDS ORDERED: AMIODARONE INJ 450 MG in DEXTROSE 5% IN WATE(EXCEL) INJ 241 ML IV PRN ×2 (08:04)
--- NOTE | 2017-06-05 08:13 | PD.CARD.PN ---
Subjective Subjective Remarks feels great tele shows new afib Objective Medications Current Medications Medications (Trade) Dose Ordered Sig/Nate Route Start Time Stop Time Status Last Admin (NS Flush) 2 ml UNSCH PRN IVF 05/31/17 15:15 06/01/17 20:25 (Restoril) 15 mg HS PRN PO 05/31/17 21:00 06/02/17 21:19 (Aspirin Chew) 81 mg DAILY CHEW 06/01/17 09:00 06/03/17 07:53 (Lopressor) 25 mg BID PO 05/31/17 21:00 06/04/17 22:28 (Pravachol) 20 mg DAILY PO 06/01/17 09:00 06/03/17 07:53 ([place] 5-325 Mg) 1 tab Q4H PRN PO 05/31/17 17:15 06/04/17 14:35 (Morphine Inj) 2 mg Q4H PRN IV PUSH 05/31/17 17:15 06/03/17 10:26 (Catapres) 0.1 mg Q6H PRN PO 05/31/17 17:30 (Nitrostat Sl) 0.4 mg Q5M PRN SL 06/02/17 11:00 06/03/17 18:16 (Mag-Al Plus Susp Liq) 30 ml Q6H PRN PO 06/02/17 11:00 06/03/17 14:21 (Effient) 10 mg DAILY PO 06/04/17 09:00 (Atropine Inj) 0.5 mg UNSCH PRN IV PUSH 06/03/17 09:45 (Zofran Inj) 4 mg Q4H PRN IV PUSH 06/03/17 09:45 (Imdur) 60 mg DAILY@07 PO 06/04/17 07:00 06/05/17 05:33 (fentaNYL INJ) 25 mcg Q30M PRN IV PUSH 06/03/17 10:30 06/03/17 16:38 (Ativan Inj) 1 mg Q4H PRN IV 06/03/17 19:45 06/04/17 03:39 Nitroglycerin/ Dextrose 250 ml @ 1.5 mls/hr TITRATE PRN IV 06/03/17 20:30 06/03/17 21:02 (Protonix) 40 mg Q12HR PO 06/04/17 21:00 3/13/18 22:28 (Mag-Al Plus Susp Liq) 30 ml TIDPC PO 06/04/17 13:30 06/06/17 09:31 Sodium Chloride 1,000 ml @ 100 mls/hr Q10H IV 06/04/17 15:00 06/05/17 14:59 06/04/17 15:00 Amiodarone HCl 150 mg/Dextrose 103 ml @ 600 mls/hr Q11M ONCE IV 06/05/17 07:54 06/05/17 08:04 Amiodarone HCl 450 mg/Dextrose 250 ml @ 33.33 mls/ hr Q7H31M PRN IV 06/05/17 08:04 Vital Signs / I&O Vital Signs Date Time Temp Pulse Resp B/P (MAP) Pulse Ox O2 Delivery O2 Flow Rate FiO2 06/05/17 06:01 73 06/05/17 05:06 67 06/05/17 04:03 67 06/05/17 03:00 98.5 73 17 120/71 (87) 95 06/05/17 03:00 69 06/05/17 02:00 68 06/05/17 01:00 70 06/04/17 23:00 71 06/04/17 23:00 97.8 71 17 131/74 (93) 98 06/04/17 22:00 76 06/04/17 21:00 80 06/04/17 19:05 96 21 06/04/17 19:00 74 06/04/17 19:00 97.6 80 17 131/63 (85) 96 06/04/17 16:00 62 06/04/17 16:00 63 06/04/17 16:00 Room Air 06/04/17 15:35 18 06/04/17 11:00 Room Air I/O 06/04/17 06/04/17 06/04/17 06/05/17 06/05/17 06/05/17 07:00 15:00 23:00 07:00 15:00 23:00 Intake Total 240 ml 240 ml Output Total 350 ml 1200 ml Balance -110 ml -960 ml Intake Oral 240 ml 240 ml Output Urine Total 350 ml 1200 ml Physical Exam GENERAL: SKIN: Warm and dry. HEAD: Normocephalic. EYES: No scleral icterus. No injection or drainage. NECK: Supple, trachea midline. No JVD or lymphadenopathy. CARDIOVASCULAR: Regular rate and rhythm without murmurs, gallops, or rubs. RESPIRATORY: Breath sounds equal bilaterally. No accessory muscle use. GASTROINTESTINAL: Abdomen soft, non-tender, nondistended. MUSCULOSKELETAL: No cyanosis, or edema. BACK: Nontender without obvious deformity. No CVA tenderness. Laboratory Laboratory Tests Test 06/05/17 05:56 Activated Partial Thromboplast Time 27.9 SEC Imaging Last Impressions Chest X-Ray 05/31/17 1510 Signed Impressions: Service Date/Time: Wednesday, May 31, 2017 15:28 - CONCLUSION: No acute disease. Xander Liz MD FACR Assessment and Plan Problem List: (1) NSTEMI (non-ST elevated myocardial infarction) ICD Codes: I21.4 - Non-ST elevation (NSTEMI) myocardial infarction (2) Elevated troponin ICD Codes: R74.8 - Abnormal levels of other serum enzymes Status: Acute (3) Unstable angina ICD Codes: I20.0 - Unstable angina Status: Acute (4) CAD (coronary artery disease) ICD Codes: I25.10 - Atherosclerotic heart disease of [place] coronary artery without angina pectoris Status: Chronic (5) Hyperlipidemia ICD Codes: E78.5 - Hyperlipidemia, unspecified Status: Chronic (6) HTN (hypertension) ICD Codes: I10 - Essential (primary) hypertension Status: Chronic Assessment and Plan NSTEMI - PCI MELONIE x2 SVG-RCA He did have distal embolization with ANTONY II flow initially despite adenosine and nitroglycerin intracoronary. Initial EKG unremarkable. managed conservatively given good angiographic result. likely sustained small branch vessel occlusion due to graft atheroemboli. NSTEMI - PCI SVG-OM asa effient bb isosorbide new afib - amio gtt to chemically convert if possible NSVT x 1 yesterday cont BB start eliquis plan: if chemically converts, possible DC on [id number] valeria and Blane Diego MD Jun 05, 2017 08:13
[2017-06-05] MEDS: ALUMINUM/MAGNESIUM/SIMETH 30 ML CUP PO SCH ×3 (08:19→18:30)
[2017-06-05] MEDS: PRAVASTATIN SOD 20 MG TAB PO SCH (08:19)
[2017-06-05] MEDS: ASPIRIN 81 MG CHEW TAB CHEW SCH (08:19)
[2017-06-05] MEDS: METOPROLOL TARTRATE 25 MG TAB PO SCH ×2 (08:19→21:42)
[2017-06-05] MEDS: PANTOPRAZOLE SOD 40 MG DELAYED RELEASE TAB PO SCH ×2 (08:19→21:42)
[2017-06-05] MEDS: PRASUGREL 10 MG TAB PO SCH (08:20)
[2017-06-05] MEDS: APIXABAN 5 MG TABLET PO SCH ×2 (09:00→21:42)
[2017-06-05] MEDS ORDERED: AMIODARONE INJ 450 MG in SODIUM CHLOR 0.9% (EXCEL) INJ 250 ML IV PRN (09:00)
--- NOTE | 2017-06-05 09:21 | HHI.PR ---
Subjective Remarks Patient with new Atrial Fibrillation today started on amiodarone drip per cardiology patient offers no complaints, denies chest pain Objective Vitals Vital Signs Date Time Temp Pulse Resp B/P (MAP) Pulse Ox O2 Delivery O2 Flow Rate FiO2 06/05/17 08:36 94 115/70 06/05/17 06:01 73 06/05/17 05:06 67 06/05/17 04:03 67 06/05/17 03:00 98.5 73 17 120/71 (87) 95 06/05/17 03:00 69 06/05/17 02:00 68 06/05/17 01:00 70 06/04/17 23:00 71 06/04/17 23:00 97.8 71 17 131/74 (93) 98 06/04/17 22:00 76 06/04/17 21:00 80 06/04/17 19:05 96 21 06/04/17 19:00 74 06/04/17 19:00 97.6 80 17 131/63 (85) 96 06/04/17 16:00 62 06/04/17 16:00 63 06/04/17 16:00 Room Air 06/04/17 15:35 18 06/04/17 11:00 Room Air Result Diagram: 06/04/17 0449 06/04/17 0449 Other Results Laboratory Tests Test 06/03/17 07:00 06/04/17 04:49 06/05/17 05:56 White Blood Count 4.3 TH/MM3 8.5 TH/MM3 Red Blood Count 4.41 MIL/MM3 4.15 MIL/MM3 Hemoglobin 14.6 GM/DL 14.0 GM/DL Hematocrit 40.3 % 38.3 % Mean Corpuscular Volume 91.2 FL 92.4 FL Mean Corpuscular Hemoglobin 33.0 PG 33.9 PG Mean Corpuscular Hemoglobin Concent 36.2 % 36.7 % Red Cell Distribution Width 13.1 % 12.8 % Platelet Count 166 TH/MM3 157 TH/MM3 Mean Platelet Volume 7.7 FL 7.8 FL Prothrombin Time 10.8 SEC Prothromb Time International Ratio 1.1 RATIO Activated Partial Thromboplast Time 43.2 SEC 27.9 SEC Blood Urea Nitrogen 11 MG/DL 14 MG/DL Creatinine 0.71 MG/DL 0.65 MG/DL Random Glucose 92 MG/DL 122 MG/DL Total Protein 7.0 GM/DL Albumin 3.5 GM/DL Calcium Level 8.8 MG/DL 8.6 MG/DL Alkaline Phosphatase 62 U/L Aspartate Amino Transf (AST/SGOT) 45 U/L Alanine Aminotransferase (ALT/SGPT) 72 U/L Total Bilirubin 0.6 MG/DL Sodium Level 140 MEQ/L 136 MEQ/L Potassium Level 3.9 MEQ/L 3.6 MEQ/L Chloride Level 106 MEQ/L 99 MEQ/L Carbon Dioxide Level 25.8 MEQ/L 24.4 MEQ/L Anion Gap 8 MEQ/L 13 MEQ/L Estimat Glomerular Filtration Rate 109 ML/MIN 120 ML/MIN Neutrophils (%) (Auto) 84.1 % Lymphocytes (%) (Auto) 8.9 % Monocytes (%) (Auto) 6.8 % Eosinophils (%) (Auto) 0.2 % Basophils (%) (Auto) 0.0 % Neutrophils # (Auto) 7.1 TH/MM3 Lymphocytes # (Auto) 0.8 TH/MM3 Monocytes # (Auto) 0.6 TH/MM3 Eosinophils # (Auto) 0.0 TH/MM3 Basophils # (Auto) 0.0 TH/MM3 CBC Comment AUTO DIFF Differential Comment AUTO DIFF CONFIRMED Total Creatine Kinase 1909 U/L Creatine Kinase MB 290.3 NG/ML Creatine Kinase MB % 15.2 % Triglycerides Level 120 MG/DL Cholesterol Level 177 MG/DL LDL Cholesterol 103 MG/DL HDL Cholesterol 49.6 MG/DL Cholesterol/HDL Ratio 3.56 RATIO Imaging Last Impressions Chest X-Ray 05/31/17 1510 Signed Impressions: Service Date/Time: Wednesday, May 31, 2017 15:28 - CONCLUSION: No acute disease. Xander Liz MD FACR Objective Remarks GENERAL: This is a well-nourished, well-developed patient, in no apparent distress. CARDIOVASCULAR: irregularly irregular RESPIRATORY: Clear to auscultation. Breath sounds equal bilaterally. No wheezes , rales, or rhonchi. GASTROINTESTINAL: Abdomen soft, non-tender, nondistended. Normal active bowel sounds MUSCULOSKELETAL: Extremities without clubbing, cyanosis, or edema. NEURO: Alert & Oriented x4 to person, place, time, situation. Moves all ext x4 Procedures - [facility] 06/03...2 makayla to svg/rca. Dr Garces believes he has small branch vessel embolization - [facility] 06/04 with PCI SVG-OM A/P Problem List: (1) Unstable angina ICD Codes: I20.0 - Unstable angina Status: Acute Plan: - Pt is a 71 y/o WM with of CAD s/p CABG x 3 in 1997, unstable angina, hx of aortic valve replacement with bioprosthetic valve and previous stenting. His last cardiac cath was in [address] Carlisle which noted a totally occluded SVG to PDA graft but a patent MCGINNIS to LAD and patent SVG to large diagonal and patent [place] circumflex. Pt follows with Dr. Garces for Cardiology. - Pt presented to the ED at [facility] on 05/31/17 with complaints of intermittent chest pain with radiation to the left arm. The pt reports that he typically has exertional chest pain but that this was now occurring at rest as well. He has been taking extra dose of Imdur and upwards of 5-6 Nitro pills per day for the last 4-5 days. -also seems to be some component of ugi symptoms after meals. family reports this is typical and has had esophageal dilations in past and [facility] 06/03...2 makayla to svg/rca. Dr Garces believes he has small branch vessel embolization patient had continued chest pain after [facility] with stent placement - [facility] 06/04 with PCI SVG-OM cont isosorbide, aspirin, Effient, bb, statin Patient for possible DC today then telemetry revealed new Atrial Fibrillation patient started on amio gtt to chemically convert per cardiology patient also had NSVT x 1 yesterday cont BB start eliquis plan pericardiology note if chemically converts, possible DC on [id number] Effient and Eliquis (2) Elevated troponin ICD Codes: R74.8 - Abnormal levels of other serum enzymes Status: Acute Plan: - See above (3) CAD (coronary artery disease) ICD Codes: I25.10 - Atherosclerotic heart disease of [place] coronary artery without angina pectoris Status: Chronic Plan: - See above. (4) HTN (hypertension) ICD Codes: I10 - Essential (primary) hypertension Status: Chronic Plan: - Home meds resumed - Clonidine PRN (5) Hyperlipidemia ICD Codes: E78.5 - Hyperlipidemia, unspecified Status: Chronic Plan: - Home meds continued Assessment and Plan Patient examined. Assessment and plan formulated with Deepali Moore PA-C. I agree with the above. Pt had LHC 3 with 2 stents to svg Pt had LHC 06/04 with 2 additional stents to SVG. Pt developed Afib with RVR today. Pt started on IV amiodarone. Pt denies chest pain or palpitations. Deepali Moore Jun 05, 2017 09:21 Madi Edwards DO Jun 05, 2017 11:47
[2017-06-05] MEDS: TEMAZEPAM 15 MG CAP PO PRN (21:42)
--- NOTE | 2017-06-05 23:51 | EKG ---
Date Performed: 06/04/2017 Time Performed: 11:32:50 PTAGE: 71 years EKG: Sinus rhythm with 1st degree A-V block Leftward axis Possible inferior infarct - age undetermined Ant/septal and lateral ST-T changes are nonspecific Abnormal ECG PREVIOUS TRACING : 06/03/2017 10.32 Since the previous tracing, no significant change noted DOCTOR: Henry Thomas Interpretating Date/Time 06/05/2017 23:47:47
[2017-06-06] VITALS (13 sets, daily range): BP systolic 103–108; BP diastolic 64–70; PULSE 61–71; RESP 16–18; TEMP 98.6–98.8; O2SAT 93–98
[2017-06-06] MEDS: ISOSORBIDE MONONITRATE 60 MG CR TAB (IMDUR) PO SCH (06:18)
[2017-06-06 06:21] LABS: HEMATOCRIT 37.5 % (39.0-51.0); HEMOGLOBIN 13.8 GM/DL (13.0-17.0); MEAN CELL VOLUME 91.2 FL (80.0-100.0); MEAN CORPUSCULAR HEMOGLOBIN 33.6 PG (27.0-34.0); MEAN PLATELET VOLUME 8.1 FL (7.0-11.0); PLATELET COUNT 123 TH/MM3 (150-450); RED BLOOD COUNT 4.11 MIL/MM3 (4.50-5.90); RED CELL DISTRIBUTION WIDTH 12.8 % (11.6-17.2); WHITE BLOOD COUNT 6.8 TH/MM3 (4.0-11.0)
[2017-06-06 06:34] LABS: MEAN CORPUSCULAR HGB CONC 36.8 % (32.0-36.0)
--- NOTE | 2017-06-06 08:16 | PD.CARD.PN ---
Subjective Subjective Remarks The patient is doing well today. No chest pains or shortness of breath like prior to intervention, does feel a mild dull ache in his chest since the procedures. No shortness of breath or palpitations today. Rhythm has converted and has remained in NSR overnight. (Keaton Pitt) Objective Medications Current Medications Medications (Trade) Dose Ordered Sig/Nate Route Start Time Stop Time Status Last Admin (NS Flush) 2 ml UNSCH PRN IVF 05/31/17 15:15 06/01/17 20:25 (Restoril) 15 mg HS PRN PO 05/31/17 21:00 06/05/17 21:42 (Aspirin Chew) 81 mg DAILY CHEW 06/01/17 09:00 06/05/17 08:19 (Lopressor) 25 mg BID PO 05/31/17 21:00 06/05/17 21:42 (Pravachol) 20 mg DAILY PO 06/01/17 09:00 06/05/17 08:19 ([place] 5-325 Mg) 1 tab Q4H PRN PO 05/31/17 17:15 06/04/17 14:35 (Morphine Inj) 2 mg Q4H PRN IV PUSH 05/31/17 17:15 06/03/17 10:26 (Catapres) 0.1 mg Q6H PRN PO 05/31/17 17:30 (Nitrostat Sl) 0.4 mg Q5M PRN SL 06/02/17 11:00 06/03/17 18:16 (Mag-Al Plus Susp Liq) 30 ml Q6H PRN PO 06/02/17 11:00 06/03/17 14:21 (Effient) 10 mg DAILY PO 06/04/17 09:00 06/05/17 08:20 (Atropine Inj) 0.5 mg UNSCH PRN IV PUSH 06/03/17 09:45 (Zofran Inj) 4 mg Q4H PRN IV PUSH 06/03/17 09:45 (Imdur) 60 mg DAILY@07 PO 06/04/17 07:00 06/06/17 06:18 (fentaNYL INJ) 25 mcg Q30M PRN IV PUSH 06/03/17 10:30 06/03/17 16:38 (Ativan Inj) 1 mg Q4H PRN IV 06/03/17 19:45 06/04/17 03:39 Nitroglycerin/ Dextrose 250 ml @ 1.5 mls/hr TITRATE PRN IV 06/03/17 20:30 06/03/17 21:02 (Protonix) 40 mg Q12HR PO 06/04/17 21:00 06/05/17 21:42 (Mag-Al Plus Susp Liq) 30 ml TIDPC PO 06/04/17 13:30 06/06/17 09:31 06/05/17 18:30 Amiodarone HCl 450 mg/Sodium Chloride 259 ml @ 33.33 mls/ hr Q7H47M PRN IV 06/05/17 09:00 06/05/17 08:00 (Eliquis) 5 mg BID PO 06/05/17 09:00 06/05/17 21:42 Vital Signs / I&O Vital Signs Date Time Temp Pulse Resp B/P (MAP) Pulse Ox O2 Delivery O2 Flow Rate FiO2 06/06/17 07:46 98.6 68 18 103/64 (77) 98 06/06/17 07:00 69 06/06/17 06:00 66 06/06/17 05:00 61 06/06/17 04:00 64 06/06/17 03:00 98.8 68 16 108/70 (83) 96 06/06/17 03:00 68 06/06/17 02:00 71 06/06/17 01:00 62 06/06/17 00:00 63 06/05/17 23:00 69 06/05/17 23:00 98.4 69 16 118/68 (85) 98 06/05/17 22:00 77 06/05/17 21:00 75 06/05/17 20:00 80 06/05/17 20:00 98.6 76 16 121/71 (88) 96 06/05/17 19:00 76 06/05/17 18:38 73 06/05/17 17:44 97 21 06/05/17 17:34 83 06/05/17 16:09 64 06/05/17 15:42 65 06/05/17 15:42 98.2 74 18 135/78 (97) 97 06/05/17 13:24 71 06/05/17 12:50 76 06/05/17 12:50 98.5 75 18 107/72 (84) 96 06/05/17 10:59 73 06/05/17 09:00 96 21 06/05/17 08:45 99 06/05/17 08:36 94 115/70 I/O 06/05/17 06/05/17 06/05/17 06/06/17 06/06/17 06/06/17 07:00 15:00 23:00 07:00 15:00 23:00 Intake Total 240 ml 720 ml 720 ml Output Total 1200 ml 1150 ml 890 ml Balance -960 ml -430 ml -170 ml Intake Oral 240 ml 720 ml 720 ml Output Urine Total 1200 ml 1150 ml 890 ml # Bowel Movements 1 Physical Exam GENERAL: Well-developed well-nourished. In no acute distress. NECK: No carotid bruits. No JVD. CARDIOVASCULAR: Regular rate and rhythm. No murmur appreciated. RESPIRATORY: No accessory muscle use. Clear to auscultation. Breath sounds equal bilaterally. MUSCULOSKELETAL: No clubbing or cyanosis. No edema. NEUROLOGICAL: Awake and alert. Normal speech. Laboratory Laboratory Tests Test 06/05/17 11:15 06/06/17 05:00 Platelet Function P2Y12 React Units 45 PRU White Blood Count 6.8 TH/MM3 Red Blood Count 4.11 MIL/MM3 Hemoglobin 13.8 GM/DL Hematocrit 37.5 % Mean Corpuscular Volume 91.2 FL Mean Corpuscular Hemoglobin 33.6 PG Mean Corpuscular Hemoglobin Concent 36.8 % Red Cell Distribution Width 12.8 % Platelet Count 123 TH/MM3 Mean Platelet Volume 8.1 FL Activated Partial Thromboplast Time 30.2 SEC Imaging Last Impressions Chest X-Ray 05/31/17 1510 Signed Impressions: Service Date/Time: Wednesday, May 31, 2017 15:28 - CONCLUSION: No acute disease. Xander Liz MD FACR (Keaton Pitt) Assessment and Plan Problem List: (1) NSTEMI (non-ST elevated myocardial infarction) ICD Codes: I21.4 - Non-ST elevation (NSTEMI) myocardial infarction (2) Elevated troponin ICD Codes: R74.8 - Abnormal levels of other serum enzymes Status: Acute (3) Unstable angina ICD Codes: I20.0 - Unstable angina Status: Acute (4) CAD (coronary artery disease) ICD Codes: I25.10 - Atherosclerotic heart disease of [place] coronary artery without angina pectoris Status: Chronic (5) Hyperlipidemia ICD Codes: E78.5 - Hyperlipidemia, unspecified Status: Chronic (6) HTN (hypertension) ICD Codes: I10 - Essential (primary) hypertension Status: Chronic Assessment and Plan NSTEMI - PCI MELONIE x2 SVG-RCA NSTEMI - PCI SVG-OM Continue on asa, Effient BB, isosorbide new afib - post procedure. Given Amio gtt with conversion to NSR cont BB Continue on Eliquis DC planning for today Discussed Condition With Dr. Garces (Keaton Pitt) Assessment and Plan doing well DC today asa 81 plavix 75 eliquis 5 BID amio 200 daily (Blane Garces MD) Problem Qualifiers (1) HTN (hypertension): Qualified Codes: I10 - Essential (primary) hypertension Keaton Pitt Jun 06, 2017 08:16 Blane Garces MD Jun 06, 2017 10:42
[2017-06-06] MEDS: PRAVASTATIN SOD 20 MG TAB PO SCH (09:05)
[2017-06-06] MEDS: PANTOPRAZOLE SOD 40 MG DELAYED RELEASE TAB PO SCH (09:05)
[2017-06-06] MEDS: ALUMINUM/MAGNESIUM/SIMETH 30 ML CUP PO SCH (09:05)
[2017-06-06] MEDS: APIXABAN 5 MG TABLET PO SCH (09:06)
[2017-06-06] MEDS: METOPROLOL TARTRATE 25 MG TAB PO SCH (09:06)
[2017-06-06] MEDS: PRASUGREL 10 MG TAB PO SCH (09:06)
[2017-06-06] MEDS: ASPIRIN 81 MG CHEW TAB CHEW SCH (09:07)
[2017-06-06] MEDS ORDERED: PRAS10TA PO (09:35)
[2017-06-06] MEDS ORDERED: HYDR-3516 PO (09:35)
[2017-06-06] MEDS ORDERED: NITR0.4S SL (09:35)
[2017-06-06] MEDS ORDERED: AMIO200T PO (09:35)
[2017-06-06] MEDS ORDERED: PANT40TA3 PO (09:35)
--- NOTE | 2017-06-06 09:46 | HHI.DS ---
Discharge Summary Admission Date May 31, 2017 at 16:38 Discharge Date: Jun 06, 2017 Admitting Diagnosis unstable angina (1) NSTEMI (non-ST elevated myocardial infarction) Diagnosis: Principal ICD Codes: I21.4 - Non-ST elevation (NSTEMI) myocardial infarction (2) Atrial fibrillation with rapid ventricular response Diagnosis: Principal ICD Codes: I48.91 - Unspecified atrial fibrillation (3) Unstable angina Diagnosis: Principal ICD Codes: I20.0 - Unstable angina Status: Acute (4) Elevated troponin Diagnosis: Principal ICD Codes: R74.8 - Abnormal levels of other serum enzymes Status: Acute (5) CAD (coronary artery disease) Diagnosis: Principal ICD Codes: I25.10 - Atherosclerotic heart disease of [place] coronary artery without angina pectoris Status: Chronic (6) HTN (hypertension) Diagnosis: Secondary ICD Codes: I10 - Essential (primary) hypertension Status: Chronic (7) Hyperlipidemia Diagnosis: Secondary ICD Codes: E78.5 - Hyperlipidemia, unspecified Status: Chronic Procedures - [facility] 06/03...2 makayla to svg/rca. Dr Garces believes he has small branch vessel embolization - [facility] 06/04 with PCI SVG-OM Brief History Mr. Gonzales is a pleasant 71 y/o WM with of CAD s/p CABG x 3 in 1997, unstable angina, hx of aortic valve replacement with bioprosthetic valve and previous stenting. His last cardiac cath was in [address] Carlisle which noted a totally occluded SVG to PDA graft but a patent MCGINNIS to LAD and patent SVG to large diagonal and patent [place] circumflex. Pt follows with Dr. Garces for Cardiology. Pt reports that he had an outpt nuclear stress test about 2 months ago which was negative per the pt. He was out of the state this week and states that he woke up during the night on Saturday with some left sided chest tightness and left arm pain. He took an Imdur (the third he had taken that day) with some relief. He had to drive up to [place] that day and continued to have intermittent left chest tightness/burning and left arm numbness while driving. He states that the pain was occurring at rest which is unusual for him. This occurred multiple times over the next three days and was taking Nitro 5-6 times per day. He has some pain associated with food intake and occasionally noted some chest pain with positional changes. Denies any SOB, palpitations, diaphoresis, dizziness or weakness. Pt reported to the ED after returning to [facility] because he continued to have this intermittent chest pain which he reports is the same pain he has experienced in the past related to his cardiac pain. In the ED his first set of CE noted elevated troponin of 0.09. The ER discussed the case with the pts [employer] Operator, Dr. Garces and he is being started on Heparin and planning for [facility] likely Saturday. CBC/BMP: 06/06/17 0500 06/04/17 0449 Significant Findings Laboratory Tests Test 06/04/17 04:49 06/05/17 05:56 06/05/17 11:15 06/06/17 05:00 Red Blood Count 4.15 MIL/MM3 (4.50-5.90) 4.11 MIL/MM3 (4.50-5.90) Hematocrit 38.3 % (39.0-51.0) 37.5 % (39.0-51.0) Mean Corpuscular Hemoglobin Concent 36.7 % (32.0-36.0) 36.8 % (32.0-36.0) Neutrophils (%) (Auto) 84.1 % (16.0-70.0) Lymphocytes (%) (Auto) 8.9 % (9.0-44.0) Lymphocytes # (Auto) 0.8 TH/MM3 (1.0-4.8) Random Glucose 122 MG/DL (74-106) Total Creatine Kinase 1909 U/L (39-308) Creatine Kinase MB 290.3 NG/ML (0.5-3.6) Creatine Kinase MB % 15.2 % (0.0-4.0) LDL Cholesterol 103 MG/DL (0-99) Platelet Function P2Y12 React Units 45 PRU (194-418) Platelet Count 123 TH/MM3 (150-450) Activated Partial Thromboplast Time 30.2 SEC (24.3-30.1) Imaging Last Impressions Chest X-Ray 05/31/17 1510 Signed Impressions: Service Date/Time: Wednesday, May 31, 2017 15:28 - CONCLUSION: No acute disease. Xander Liz MD FACR PE at Discharge GENERAL: This is a well-nourished, well-developed patient, in no apparent distress. CARDIOVASCULAR: irregularly irregular RESPIRATORY: Clear to auscultation. Breath sounds equal bilaterally. No wheezes , rales, or rhonchi. GASTROINTESTINAL: Abdomen soft, non-tender, nondistended. Normal active bowel sounds MUSCULOSKELETAL: Extremities without clubbing, cyanosis, or edema. NEURO: Alert & Oriented x4 to person, place, time, situation. Moves all ext x4 Hospital Course (1) Unstable angina ICD Codes: I20.0 - Unstable angina Status: Acute Plan: - Pt is a 71 y/o WM with of CAD s/p CABG x 3 in 1997, unstable angina, hx of aortic valve replacement with bioprosthetic valve and previous stenting. His last cardiac cath was in [address] Carlisle which noted a totally occluded SVG to PDA graft but a patent MCGINNIS to LAD and patent SVG to large diagonal and patent [place] circumflex. Pt follows with Dr. Garces for Cardiology. - Pt presented to the ED at [facility] on 05/[place]/17 with complaints of intermittent chest pain with radiation to the left arm. The pt reports that he typically has exertional chest pain but that this was now occurring at rest as well. He has been taking extra dose of Imdur and upwards of 5-6 Nitro pills per day for the last 4-5 days. -also seems to be some component of ugi symptoms after meals. family reports this is typical and has had esophageal dilations in past [facility] 06/03...2 makayla to svg/rca. Dr Garces believes he has small branch vessel embolization patient had continued chest pain after [facility] with stent placement - [facility] 06/04 with PCI SVG-OM, 2 additional stents placed - isosorbide, aspirin, Effient, bb, statin - continue on PO protonix. H/o GI issues. - pt converted back to NSR with amiodarone IV - Case d/w Cardiology, Dr. Garces, (06/06) - continue on amiodarone 200mg daily upon discharge - f/u with Dr. Garces in 2 weeks (2) Elevated troponin ICD Codes: R74.8 - Abnormal levels of other serum enzymes Status: Acute Plan: - See above (3) CAD (coronary artery disease) ICD Codes: I25.10 - Atherosclerotic heart disease of [place] coronary artery without angina pectoris Status: Chronic Plan: - See above. (4) HTN (hypertension) ICD Codes: I10 - Essential (primary) hypertension Status: Chronic Plan: - Home meds resumed - Clonidine PRN (5) Hyperlipidemia ICD Codes: E78.5 - Hyperlipidemia, unspecified Status: Chronic Plan: - Home meds continued Pt Condition on Discharge: Stable Discharge Disposition: Discharge Home Discharge Instructions DIET: Follow Instructions for: Heart Healthy Diet Activities you can perform: Regular-No Restrictions Activities to Avoid: Strenuous Activity Follow up Referrals: Cardiology - [address] Blane Garces PCP Follow-up - [address] Diallo Ocampo New Medications: Amiodarone (Amiodarone) 200 Mg Tab 200 MG PO DAILY for Regulate Heart Beat, #30 TAB 0 Refills Apixaban (Eliquis) 5 Mg Tab 5 MG PO BID for ANTICOAGULATION, #60 TAB 0 Refills Hydrocodone/Acetaminophen (Hydrocodone-Acetamin 5-325 mg) 5 Mg-325 Mg Tablet 1 TAB PO Q4H PRN for PAIN 3-5, #7 TAB 0 Refills Nitroglycerin SL (Nitrostat SL) 0.4 Mg Subl 0.4 MG SL Q5M PRN for CHEST PAIN, #10 TAB 0 Refills Pantoprazole (Pantoprazole) 40 Mg Tab 40 MG PO DAILY for GERD, #30 TAB 0 Refills Prasugrel (Effient) 10 Mg Tab 10 MG PO DAILY for ANTIPLATELET, #30 TAB 0 Refills Continued Medications: Aspirin (Aspirin) 81 Mg Chew 81 MG CHEW DAILY, TAB 0 Refills Cholecalciferol (Vitamin D3 Maximum Strength) 5,000 Unit Cap 5000 UNITS PO DAILY for Nutritional Supplement, #30 CAP 0 Refills Coenzyme Q10 (Ubidecarenone) (Coq10 Maximum Strength) 400 Mg Cap Isosorbide Mononitrate ER (Isosorbide Mononitrate ER) 60 Mg Tab 60 MG PO BID for Prevent Chest Pain, #30 TAB 0 Refills Metoprolol Tartrate (Metoprolol Tartrate) 25 Mg Tab 25 MG PO BID, #60 TAB 0 Refills Pravastatin (Pravastatin) 20 Mg Tab 20 MG PO DAILY for Cholesterol Management, #30 TAB 0 Refills Madi Edwards DO Jun 06, 2017 09:46
--- NOTE | 2017-06-06 09:48 | HHI.DCPOC ---
Discharge Care Plan Diagnosis: (1) NSTEMI (non-ST elevated myocardial infarction) (2) Atrial fibrillation with rapid ventricular response (3) Elevated troponin (4) Unstable angina (5) CAD (coronary artery disease) (6) HTN (hypertension) (7) Hyperlipidemia Goals to Promote Your Health * To prevent worsening of your condition and complications * To maintain your health at the optimal level Directions to Meet Your Goals Take your medications as prescribed Follow your dietary instruction Follow activity as directed Keep your appointments as scheduled Take your immunizations and boosters as scheduled If your symptoms worsen call your PCP, if no PCP go to Urgent Care Center or Emergency Room Smoking is Dangerous to Your Health. Avoid second hand smoke Call the 24-hour hour crisis hotline for domestic abuse at Madi Edwards DO Jun 06, 2017 09:48
[2017-06-06] MEDS ORDERED: APIX5TAB PO (10:32)
[2017-06-06] MEDS ORDERED: ISOS60TA PO (10:36)
== END 2017-06-06 11:36 | disposition home or self-care (01) | DRG 246 ==
LOC: NEPC 14:18 → NEDA 16:38 → N04B 20:20 → HCIS 06-03 09:38
PROVIDERS: ADMIT Hospitalist; ATTEND Hospitalist
PROC: B2131ZZ Fluoroscopy of Multiple Coronary Artery Bypass Grafts using Low Osmolar Contrast (ICD-10-PCS; 2017-06-03)
PROC: B2111ZZ Fluoroscopy of Multiple Coronary Arteries using Low Osmolar Contrast (ICD-10-PCS; 2017-06-03)
PROC: 4A023N7 Measurement of Cardiac Sampling and Pressure, Left Heart, Percutaneous Approach (ICD-10-PCS; 2017-06-03)
PROC: 027034Z Dilation of Coronary Artery, One Artery with Drug-eluting Intraluminal Device, Percutaneous Approach (ICD-10-PCS; principal; 2017-06-03 08:30)
PROC: 027036Z Dilation of Coronary Artery, One Artery with Three Drug-eluting Intraluminal Devices, Percutaneous Approach (ICD-10-PCS; 2017-06-04)
PROC: B2121ZZ Fluoroscopy of Single Coronary Artery Bypass Graft using Low Osmolar Contrast (ICD-10-PCS; 2017-06-04)
DX: I21.4 Non-ST elevation (NSTEMI) myocardial infarction (principal); I47.2 Ventricular tachycardia; I25.710 Atherosclerosis of autologous vein coronary artery bypass graft(s) with unstable angina pectoris; I25.82 Chronic total occlusion of coronary artery; I11.0 Hypertensive heart disease with heart failure; I50.9 Heart failure, unspecified; I25.110 Atherosclerotic heart disease of native coronary artery with unstable angina pectoris; I48.91 Unspecified atrial fibrillation; R73.03 Prediabetes; E78.5 Hyperlipidemia, unspecified; I25.2 Old myocardial infarction; Z95.1 Presence of aortocoronary bypass graft; Z95.5 Presence of coronary angioplasty implant and graft; Z87.891 Personal history of nicotine dependence; Z95.3 Presence of xenogenic heart valve; Z80.1 Family history of malignant neoplasm of trachea, bronchus and lung; Z82.49 Family history of ischemic heart disease and other diseases of the circulatory system
CPT/HCPCS: 71046; 80048; 80053; 80061; 82550; 82552; 83735; 84484; 85002; 85025; 85027; 85347; 85576; 85610; 85730; 92928; 93005; 93306; 93454; 99152; 99153; 99285; C1725; C1760; C1769; C1874; C1887; C1893; C9113; G0269; J0153; J0282; J0583; J1644; J2060; J2250; J2270; J3010; J7030; J7050; Q9967

== ENCOUNTER 2017-06-08 14:35 | Inpatient (IN) | payer MEDICARE ==
[~2017-06-08] VITALS: Ht 172.7 cm; Wt 76.5 kg
[~2017-06-08 14:35] MED LIST changes: +AMIO200T PO; +APIX5TAB PO; +ASPI-516 PO; +CHOL500022 PO; -CHRO200T2 PO; +COQ1400C; -COQ150CA OR; -CYCL1PAK PO; -ECOT325T PO; -FLAX10008 OR; -FOLI200T OR; +HYDR-3516 PO; -ISOS30TA3 PO; +ISOS60TA PO; +METO25TA3 PO; -METO50TA OR; +NITR0.4S SL; +PANT40TA3 PO; -POTA595T2 PO; -PRAS10TA OR; +PRAS10TA PO; +PRAV20TA2 PO; -PRAV20TA67 PO; -TAB-TAB PO; -VITA20003 OR
[2017-06-08 14:38] VITALS: BP 122/64; PULSE 75; RESP 18; TEMP 97.7; O2SAT 96
--- NOTE | 2017-06-08 14:45 | PD ---
HPI Chief Complaint: Chest Pain Time Seen by Provider: 14:45 Travel History International Travel<30 days: No Contact w/Intl Traveler<30days: No Traveled to known affect area: No History of Present Illness HPI 71-year-old male came to the emergency room with history of lightheadedness, shortness of breath and some chest tightness since past 2 days. Patient says it is worse today. Patient was in the hospital and had a cardiac catheterization leading to a stent placement in 1 of his bypass graft vessels. This was done on Saturday and patient was discharged home on . Patient says that he was feeling fine when he was discharged home and the symptoms started next day. Vital signs are stable. Patient describes the chest tightness in the center of his chest and it is about 2 out of 10. It is worse when he takes a deep breath. Patient is currently on Xarelto and Brilinta which he started taking 2 days ago. No history of nausea vomiting. No history of syncopal episode. He also points to his left groin and left arm with tender knots. The left groin was an access site for cardiac catheterization and the left arm patient had an IV in. [facility] Past Medical History Narrative Medical List of his past medical, surgical, social and family history reviewed from the nursing note. Hx Anticoagulant Therapy: Yes (XARELTO, BRILINTA) Arthritis: Yes Asthma: No Blood Disorders: No Heart Rhythm Problems: No Cancer: No Cardiac Catheterization: Yes Cardiovascular Problems: Yes (2 STENTS) High Cholesterol: Yes Chest Pain: Yes Congestive Heart Failure: Yes COPD: No Cerebrovascular Accident: No Diabetes: No Endocrine: No Gastrointestinal Disorders: No GERD: No Genitourinary: No Headaches: No Hepatitis: No Hiatal Hernia: No Heparin Induced Thrombocytopen: No Hypertension: Yes Immune Disorder: No Kidney Stones: No Musculoskeletal: Yes Neurologic: Yes Psychiatric: No Reproductive: No Respiratory: Yes Migraines: No Myocardial Infarction: Yes Renal Failure: No Seizures: No Sickle Cell Disease: No Sleep Apnea: No Thyroid Disease: No Ulcer: No Past Surgical History Abdominal Surgery: No AICD: No Appendectomy: No Arteriovenous Shunt: No Body Medical Devices: BIOPROSTHETIC HEART VALVE Cardiac Surgery: Yes (HEART VALVE, CABGX 3 VESSEL) Cholecystectomy: No Coronary Artery Bypass Graft: Yes Ear Surgery: No Endocrine Surgery: No Eye Surgery: No Genitourinary Surgery: No Gynecologic Surgery: No Insulin Pump: No Joint Replacement: No Neurologic Surgery: No Oral Surgery: No Pacemaker: No Thoracic Surgery: No Other Surgery: Yes (OPEN HEART SURGRY 1997,2007) Social History Alcohol Use: Yes (wine on occasion) Tobacco Use: No Substance Use: No Allergies-Medications (Allergen,Severity, Reaction): Coded Allergies: atorvastatin (Unverified Allergy, Unknown, 11/06/16) clopidogrel (Unverified Allergy, Unknown, 11/06/16) simvastatin (Unverified Allergy, Unknown, 11/06/16) Comments List of his allergies reviewed from the nursing note. Reported Meds & Prescriptions Reported Meds & Active Scripts Active Pravachol (Pravastatin) 20 Mg Tab 20 Mg PO HS Isosorbide Mononitrate ER (Isosorbide Mononitrate) 60 Mg Tab 60 Mg PO BID 30 Days Hydrocodone-Acetamin 5-325 mg (Hydrocodone/Acetaminophen) 5 Mg-325 Mg Tablet 1 Tab PO Q4H PRN Nitrostat SL (Nitroglycerin) 0.4 Mg Subl 0.4 Mg SL Q5M PRN Reported Protonix (Pantoprazole Sodium) 40 Mg Tab 40 Mg PO DAILY Amiodarone (Amiodarone HCl) 200 Mg Tab 200 Mg PO DAILY Selenium 200 Mcg Tab 200 Mg PO DAILY Multiple Vitamin 1 Tab 1 Tab PO DAILY Co Q-10 (Coenzyme Q10 (Ubidecarenone)) 100 Mg Cap 100 Mg PO DAILY Metoprolol Tartrate 25 Mg Tab 25 Mg PO BID Vitamin D3 Maximum Strength (Cholecalciferol) 5,000 Unit Cap 5,000 Units PO DAILY Aspirin 81 Mg Chew 81 Mg PO DAILY Narrative Medication List of his home medications reviewed from the nursing note. Review of Systems Except as stated in HPI: all other systems reviewed are Neg HENT: Positive: Lightheadedness Cardiovascular: Positive: Chest Pain or Discomfort Respiratory: Positive: Shortness of Breath Physical Exam Narrative GENERAL: Awake, alert, anxious, mild distress SKIN: Focused skin assessment warm/dry. Left groin large ecchymosis and some hematoma which is tender to touch. Left mid arm has erythema of the skin about 5 cm x 3 cm with firm mass underneath that is tender to touch HEAD: Atraumatic. Normocephalic. EYES: Pupils equal and round. No scleral icterus. No injection or drainage. ENT: No nasal bleeding or discharge. Mucous membranes pink and moist. NECK: Trachea midline. No JVD. CARDIOVASCULAR: Regular rate and rhythm. No murmur appreciated. RESPIRATORY: No accessory muscle use. Clear to auscultation. Breath sounds equal bilaterally. GASTROINTESTINAL: Abdomen soft, non-tender, nondistended. Hepatic and splenic margins not palpable. MUSCULOSKELETAL: No obvious deformities. No clubbing. No cyanosis. No edema. NEUROLOGICAL: Awake and alert. No obvious cranial nerve deficits. Motor grossly within normal limits. Normal speech. PSYCHIATRIC: Appropriate mood and affect; insight and judgment normal. Data Data Last Documented VS Orders Orders Electrocardiogram (06/08/17 14:58) Basic Metabolic Panel (Bmp) (06/08/17 14:58) Complete Blood Count With Diff (06/08/17 14:58) Magnesium (Mg) (06/08/17 14:58) Prothrombin Time / Inr (Pt) (06/08/17 14:58) Troponin I (06/08/17 14:58) Ecg Monitoring (06/08/17 14:58) Bilateral Bp Monitoring (06/08/17 14:58) Iv Access Insert/Monitor (06/08/17 14:58) Oximetry (06/08/17 14:58) Oxygen Administration (06/08/17 14:58) Sodium Chloride 0.9% Flush (Ns Flush) (06/08/17 15:00) Chest, Pa & Lat (06/08/17 14:58) Us Leg Hematoma/Pseudoaneurysm (06/08/17 ) Us Arm Venous Doppler (06/08/17 ) Ct Pulmonary Angiogram (06/08/17 ) Iohexol 350 Inj (Omnipaque 350 Inj) (06/08/17 17:58) Admit To Inpatient (06/08/17 ) Code Status (06/08/17 18:44) Vital Signs (Adult) Q4H (06/08/17 18:44) Activity Oob With Assistance (06/08/17 18:44) Carpenter Mold / Telemetry .CONTINUOUS (06/08/17 18:44) Diet Heart Healthy (06/08/17 Dinner) Sodium Chloride 0.9% Flush (Ns Flush) (06/08/17 18:45) Sodium Chloride 0.9% Flush (Ns Flush) (06/08/17 21:00) Acetaminophen (Tylenol) (06/08/17 18:45) Ondansetron Inj (Zofran Inj) (06/08/17 18:45) Basic Metabolic Panel (Bmp) (06/09/17 06:00) Complete Blood Count With Diff (06/09/17 06:00) Resp Oxygen Orestes C Titrat 1-4 L (06/08/17 ) Pt Request For Service (06/08/17 18:44) Scd Bilateral/Knee High DENNIS.BID (06/08/17 18:44) Naloxone Inj (Narcan Inj) (06/08/17 18:45) Magnesium Hydroxide Liq (Milk Of Magnesi (06/08/17 18:45) Inpatient Certification (06/08/17 ) Admit Order (Ed Use Only) (06/08/17 18:49) Labs Laboratory Tests Test 06/08/17 15:27 White Blood Count 5.1 TH/MM3 Red Blood Count 4.20 MIL/MM3 Hemoglobin 13.7 GM/DL Hematocrit 38.8 % Mean Corpuscular Volume 92.5 FL Mean Corpuscular Hemoglobin 32.7 PG Mean Corpuscular Hemoglobin Concent 35.4 % Red Cell Distribution Width 12.8 % Platelet Count 211 TH/MM3 Mean Platelet Volume 8.0 FL Neutrophils (%) (Auto) 69.6 % Lymphocytes (%) (Auto) 15.6 % Monocytes (%) (Auto) 11.6 % Eosinophils (%) (Auto) 2.9 % Basophils (%) (Auto) 0.3 % Neutrophils # (Auto) 3.5 TH/MM3 Lymphocytes # (Auto) 0.8 TH/MM3 Monocytes # (Auto) 0.6 TH/MM3 Eosinophils # (Auto) 0.1 TH/MM3 Basophils # (Auto) 0.0 TH/MM3 CBC Comment DIFF FINAL Differential Comment Prothrombin Time 16.1 SEC Prothromb Time International Ratio 1.6 RATIO Blood Urea Nitrogen 22 MG/DL Creatinine 0.84 MG/DL Random Glucose 98 MG/DL Calcium Level 9.3 MG/DL Magnesium Level 2.0 MG/DL Sodium Level 135 MEQ/L Potassium Level 3.9 MEQ/L Chloride Level 102 MEQ/L Carbon Dioxide Level 24.2 MEQ/L Anion Gap 9 MEQ/L Estimat Glomerular Filtration Rate 90 ML/MIN Troponin I 5.25 NG/ML MDM Medical Decision Making Medical Screen Exam Complete: Yes Emergency Medical Condition: Yes Medical Record Reviewed: Yes Interpretation(s) Twelve-lead EKG was reviewed by me. Normal sinus rhythm, normal axis, nonspecific ST-T wave changes, first-degree AV block. Heart rate of 68 bpm. Differential Diagnosis ACS, non-STEMI, PE, superficial thrombophlebitis, pseudoaneurysm, DVT Narrative Course 3:05 PM awaiting for the blood test result. I have ordered an ultrasound to rule out pseudoaneurysm and DVT and a CT pulmonary angiogram to rule out PE. 5:07 PM blood test results are back and troponin is elevated which could be secondary to the cardiac catheterization. Ultrasound of the left groin was negative for pseudoaneurysm and of the left upper extremity showed cephalic vein thrombosis. Awaiting for the CT pulmonary angiogram to be done and resulted. 6:[address] scan report finally came back and does not show any PE. I have decided to keep him in observation. Awaiting for the hospitalist callback. Procedures EKG Prior to Arrival: No Diagnosis Primary Impression: History of heart artery stent Additional Impressions: Lightheaded Superficial thrombophlebitis Qualified Codes: I80.8 - Phlebitis and thrombophlebitis of other sites Chest pain Qualified Codes: R07.9 - Chest pain, unspecified Admitting Information Admitting Physician Requests: Observation Scripts Rivaroxaban (Xarelto) 20 Mg Tab 20 MG PO DAILY for Blood Clot Prevention, #30 TAB 3 Refills Prov: Audie Tavera MD 06/10/17 Ticagrelor (Brilinta) 90 Mg Tab 90 MG PO BID for Blood Clot Prevention, #60 TAB 3 Refills Prov: Audie Tavera MD 06/10/17 Pravastatin (Pravachol) 20 Mg Tab 20 MG PO HS for Cholesterol Management, #60 TAB 0 Refills Prov: Madi Edwards DO 06/08/17 Isosorbide Mononitrate ER (Isosorbide Mononitrate ER) 60 Mg Tab 60 MG PO BID for cad for 30 Days, #60 TAB Prov: Madi Edwards DO 06/08/17 Joanne Barrios MD Jun 08, 2017 14:45
[2017-06-08 15:00] VITALS: BP 139/84; PULSE 89; RESP 18; O2SAT 97
[2017-06-08] MEDS ORDERED: SODIUM CHLORIDE 0.9% FLUSH 10 ML FLUSH IVF PRN (15:00)
[2017-06-08 15:07] VITALS: PULSE 89; RESP 18; O2SAT 97
--- NOTE | 2017-06-08 15:45 | RADRPT ---
EXAM DATE/TIME: 06/08/2017 15:21 [facility] COMPARISON: CHEST PA & LAT, May 31, 2017, 15:28. INDICATIONS : Chest pain and shortness of breath. MEDICAL HISTORY : Hypertension. Hypercholesterolemia. Congestive heart failure. SURGICAL HISTORY : CABG. Cardiac stent. Cardiac cath. ENCOUNTER: Initial ACUITY: 4 - 6 days PAIN SCORE: 5/10 LOCATION: Bilateral chest FINDINGS: The patient is post median sternotomy and valvular replacement. The heart is normal in size. The lung s are clear. The bony structures are grossly intact. There are degenerative changes within the thorac ic spine. CONCLUSION: 1. Post median sternotomy changes. The lungs are clear. The examination is stable compared to a prior dated 05/31/17. Solis Liz MD on June 08, 2017 at 15:42 Board Certified Radiologist. This report was verified electronically.
[2017-06-08 15:57] LABS: AUTOMATED NEUTROPHIL # 3.5 TH/MM3 (1.8-7.7); BASOPHIL % 0.3 % (0.0-2.0); EOSINOPHIL # 0.1 TH/MM3 (0-0.4); EOSINOPHIL % 2.9 % (0.0-4.0); HEMATOCRIT 38.8 % (39.0-51.0); HEMOGLOBIN 13.7 GM/DL (13.0-17.0); LYMPH % 15.6 % (9.0-44.0); LYMPHOCYTE # 0.8 TH/MM3 (1.0-4.8); MEAN CELL VOLUME 92.5 FL (80.0-100.0); MEAN CORPUSCULAR HEMOGLOBIN 32.7 PG (27.0-34.0); MEAN CORPUSCULAR HGB CONC 35.4 % (32.0-36.0); MONO % 11.6 % (0.0-8.0); MONOCYTE # 0.6 TH/MM3 (0-0.9); NEUT % 69.6 % (16.0-70.0); PLATELET COUNT 211 TH/MM3 (150-450); RED CELL DISTRIBUTION WIDTH 12.8 % (11.6-17.2); WHITE BLOOD COUNT 5.1 TH/MM3 (4.0-11.0)
[2017-06-08 16:23] LABS: BICARBONATE 24.2 MEQ/L (21.0-32.0); CALCIUM 9.3 MG/DL (8.5-10.1); CREATININE 0.84 MG/DL (0.60-1.30)
[2017-06-08 16:32] LABS: INTERNATIONAL NORMALIZED RATIO 1.6 RATIO; PROTHROMBIN TIME - PATIENT 16.1 SEC (9.8-11.6)
[2017-06-08] MEDS ORDERED: BRIL90TA PO (16:37)
[2017-06-08] MEDS ORDERED: COEN1CAP PO (16:37)
[2017-06-08] MEDS ORDERED: BIOF1TAB PO (16:37)
[2017-06-08] MEDS ORDERED: XARE20TA PO (16:37)
[2017-06-08] MEDS ORDERED: SELE200T17 PO (16:37)
[2017-06-08] MEDS ORDERED: MULTTAB67 PO (16:37)
[2017-06-08 16:54] LABS: TROPONIN I 5.25 NG/ML (0.02-0.05)
--- NOTE | 2017-06-08 16:54 | RADRPT ---
EXAM DATE/TIME: 06/08/2017 16:10 [facility] COMPARISON: No previous studies available for comparison. INDICATIONS : Pseudoaneurysm. MEDICAL HISTORY : Myocardial infarction. Congestive heart failure. Hypercholesterolemia. Anticoagulant therapy, xarelto . Chest pain. Hypertension. Arthritis. SURGICAL HISTORY : CABG. Coronary artery stent. ENCOUNTER: Initial ACUITY: 3 days PAIN SCORE: 3/10 LOCATION: Left leg. AREA EVALUATED: Left leg/groin. FINDINGS: No hematoma identified. No pseudoaneurysm is present. The examination does demonstrate a 0.8 x 2.2 cm lymph node. CONCLUSION: 1. No hematoma or pseudoaneurysm identified. 2. Lymph node as above. Solis Liz MD on June 08, 2017 at 16:51 Board Certified Radiologist. This report was verified electronically.
--- NOTE | 2017-06-08 16:55 | RADRPT ---
EXAM DATE/TIME: 06/08/2017 16:20 [facility] COMPARISON: US LEG LEFT HEMATOMA/PSEUDOANEURYSM, June 08, 2017, 16:10. INDICATIONS : Left arm swelling. MEDICAL HISTORY : Myocardial infarction. Congestive heart failure. Hypercholesterolemia. Anticoagulant therapy, xarelto . Chest pain. Hypertension. Arthritis. SURGICAL HISTORY : CABG Coronary artery stent. ENCOUNTER: Initial ACUITY: 4 - 6 days PAIN SCORE: 3/10 LOCATION: Left arm. FINDINGS: The examination demonstrates thrombosis of the cephalic vein extending from the antecubital fossa to the mid aspect of the upper arm. The basilic vein and brachial veins are patent. The axillary vein and visualized portion of subclavia n vein are patent. CONCLUSION: 1. Thrombosis of the cephalic vein from the antecubital fossa to the mid aspect of the arm. Solis Liz MD on June 08, 2017 at 16:52 Board Certified Radiologist. This report was verified electronically.
[2017-06-08] MEDS ORDERED: IOHEXOL 350 MG/ML 10 ML VIAL (for RAD DIAG) IVCONTRAST ONE (17:58)
--- NOTE | 2017-06-08 18:07 | RADRPT ---
EXAM DATE/TIME: 06/08/2017 17:53 [facility] COMPARISON: No previous studies available for comparison. INDICATIONS : Shortness of breath; rule out pulmonary embolus. IV CONTRAST: 70 cc Omnipaque 350 (iohexol) IV RADIATION DOSE: 21.89 CTDIvol (mGy) MEDICAL HISTORY : Hypertension. Congestive heart failure. SURGICAL HISTORY : CABG ENCOUNTER: Initial ACUITY: 1 day PAIN SCALE: 0/10 LOCATION: chest TECHNIQUE: Volumetric scanning of the chest was performed using a pulmonary embolism protocol MIP images were re constructed. Using automated exposure control and adjustment of the mA and/or kV according to patien t size, radiation dose was kept as low as reasonably achievable to obtain optimal diagnostic quality images. DICOM format image data is available electronically for review and comparison. Follow-up recommendations for detected pulmonary nodules are based at a minimum on nodule size and pa tient risk factors according to Fleischner Society Guidelines. FINDINGS: The examination is of good diagnostic quality. No pulmonary embolus is identified. The heart is mildly enlarged. The patient is post median sternotomy. No significant hilar or mediasti nal adenopathy is seen. No pericardial effusion is present. No axillary adenopathy is identified. Imaging through the pulmonary parenchyma demonstrates a small left basilar effusion. There is atelect asis and scarring in the left lower lobe. There is a 5 mm calcified granuloma present. The portions of upper abdomen visualized demonstrate multiple punctate gallstones within the dependen t portion of the gallbladder but are otherwise unremarkable. There are degenerative changes throughout the spine. CONCLUSION: 1. No pulmonary embolus identified. 2. Patient is post median sternotomy. 3. Degenerative changes within the thoracic spine. 4. Multiple punctate gallstones are evident within the gallbladder. Solis Liz MD on June 08, 2017 at 18:02 Board Certified Radiologist. This report was verified electronically.
[2017-06-08 18:36] VITALS: BP 119/62; PULSE 69; RESP 18; O2SAT 96
[2017-06-08] MEDS ORDERED: NALOXONE HCL 0.4 MG/ML AMP IV PUSH PRN (18:45)
[2017-06-08] MEDS ORDERED: SODIUM CHLORIDE 0.9% FLUSH 10 ML FLUSH IV FLUSH PRN (18:45)
[2017-06-08] MEDS ORDERED: ONDANSETRON HCL 4 MG/2 ML VIAL IVP PRN (18:45)
[2017-06-08] MEDS ORDERED: MAGNESIUM HYDROXIDE SUSP 30 ML CUP PO PRN (18:45)
[2017-06-08] MEDS ORDERED: ACETAMINOPHEN 325 MG TAB PO PRN (18:45)
[2017-06-08] MEDS ORDERED: NITROGLYCERIN 0.4 MG SL 25 TABS/BTL SL PRN (19:00)
[2017-06-08] MEDS ORDERED: APIX5TAB PO (19:05)
[2017-06-08] MEDS ORDERED: ISOS60TA PO (19:05)
[2017-06-08] MEDS ORDERED: PRAV20TA PO (19:05)
[2017-06-08] MEDS ORDERED: PROT40TA PO (19:05)
[2017-06-08] MEDS ORDERED: PRAS10TA PO (19:05)
[2017-06-08] MEDS ORDERED: AMIO200T PO (19:05)
--- NOTE | 2017-06-08 19:11 | HHI.HP ---
HPI Service [facility] Hospitalists Primary Care Physician Diallo Ocampo D.O. Admission Diagnosis Chief Complaint: SOB with multiple other complaints Travel History International Travel<30 Days: No Contact w/Intl Traveler <30 Da: No Traveled to Known Affected Are: No History of Present Illness Mr. Gonzales is a pleasant 71 y/o WM with of CAD s/p CABG x 3 in 1997, unstable angina, hx of aortic valve replacement with bioprosthetic valve and previous stenting. Patient was recently seen [facility] [place] admitted from 05/31/17 - 06/06/17. During recent hospitalization patient had C 06/03/17 with 2 makayla to svg/rca then patient continued to have chest pain and was taken for a second [facility] 06/04/17 with PCI SVG-OM, 2 additional stents placed with Dr Garces. Patient then returned to the ER with multiple concerns. Patient c/o episodes at night where he experienced the feeling of his heart pounding and SOB when laying in certain positions. The shortness of breath and feeling of chest pounding resolved with position change. During this episode patient denies nausea/vomiting or diaphoresis. The episode lasted about 1 hour. Patient also c/o headache which has resolved. Then patient c/o fatigue after walking his dog earlier today. Patient also c/o bruising on his left arm where he had an IV. Patient then had pain in his groin from the cardiac catheter site. The pain was resolved after taking a [place]. At this time patient reports he feels well and all of his symptoms have resolved. Patient did not fill the prescriptions he was discharged with due to cost. According to family members in the room patient was given samples from cardiology. Patient's is not currently available to clarify. Review of Systems Constitutional: COMPLAINS OF: Fatigue Respiratory: COMPLAINS OF: Shortness of breath Cardiovascular: COMPLAINS OF: Palpitations, Dyspnea on Exertion Neurologic: COMPLAINS OF: Headache Past Family Social History Past Medical History CAD with hx of [place] Hx of aortic valve stenosis Unstable angina Prediabetes HTN Hyperlipidemia Dysphagia ?strictures 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 Past Surgical History [facility] 06/03/17 with 2 makayla to svg/rca a second [facility] 06/04/17 with PCI SVG-OM, 2 additional stents CABG x 3 in 1997 AVR with bioprosthetic valve in 2008 Tonsillectomy at age 1 Hx of EGD with dilation Reported Medications Amiodarone (Amiodarone) 200 Mg Tab 200 MG PO DAILY for Regulate Heart Beat, Apixaban (Eliquis) 5 Mg Tab 5 MG PO BID for ANTICOAGULATION Hydrocodone/Acetaminophen (Hydrocodone-Acetamin 5-325 mg) 5 Mg-325 Mg Tablet 1 TAB PO Q4H PRN for PAIN 3-5, Nitroglycerin SL (Nitrostat SL) 0.4 Mg Subl 0.4 MG SL Q5M PRN for CHEST PAIN, Pantoprazole (Pantoprazole) 40 Mg Tab 40 MG PO DAILY for GERD, Prasugrel (Effient) 10 Mg Tab 10 MG PO DAILY for ANTIPLATELET, Aspirin (Aspirin) 81 Mg Chew 81 MG CHEW DAILY, TAB Cholecalciferol (Vitamin D3 Maximum Strength) 5,000 Unit Cap 5000 UNITS PO DAILY for Nutritional Supplement, Coenzyme Q10 (Ubidecarenone) (Coq10 Maximum Strength) 400 Mg Cap Isosorbide Mononitrate ER (Isosorbide Mononitrate ER) 60 Mg Tab 60 MG PO BID for Prevent Chest Pain, Metoprolol Tartrate (Metoprolol Tartrate) 25 Mg Tab 25 MG PO BID Pravastatin (Pravastatin) 20 Mg Tab 20 MG PO DAILY for Cholesterol Management, Allergies: Coded Allergies: atorvastatin (Unverified Allergy, Unknown, 11/06/16) clopidogrel (Unverified Allergy, Unknown, 11/06/16) simvastatin (Unverified Allergy, Unknown, 11/06/16) Family History Father from CAD/[place] Brother with hx of CAD Mother with hx of lung cancer Social History Pt with remote hx of tobacco use, quit smoking in 1965 Denies any alcohol use Pt is and lives locally Physical Exam Vital Signs Vital Signs Date Time Temp Pulse Resp B/P (MAP) Pulse Ox O2 Delivery O2 Flow Rate FiO2 06/08/17 18:36 69 18 119/62 (81) 96 Room Air 06/08/17 15:07 97 Room Air 06/08/17 15:07 89 18 97 Room Air 06/08/17 15:00 89 18 139/84 (102) 97 Room Air 06/08/17 15:00 68 18 97 Room Air 06/08/17 14:38 97.7 75 18 122/64 (83) 96 Physical Exam GENERAL: This is a well-nourished, well-developed patient, in no apparent distress. SKIN: Left upper arm small area of erythema. bilateral groin sites healing ecchymosis HEAD: Atraumatic. Normocephalic. No temporal or scalp tenderness. EYES: Extraocular motions intact. No scleral icterus. No injection or drainage. CARDIOVASCULAR: Regular rate and rhythm RESPIRATORY: Clear to auscultation. Breath sounds equal bilaterally. GASTROINTESTINAL: Abdomen soft, non-tender, nondistended. MUSCULOSKELETAL: Extremities without clubbing, cyanosis, or edema. No joint tenderness, effusion, or edema noted. No calf tenderness. Negative Homans sign bilaterally. NEUROLOGICAL: Awake and alert. Motor and sensory grossly within normal limits. Five out of 5 muscle strength in all muscle groups. Normal speech. Laboratory Laboratory Tests Test 06/08/17 15:27 White Blood Count 5.1 Red Blood Count 4.20 Hemoglobin 13.7 Hematocrit 38.8 Mean Corpuscular Volume 92.5 Mean Corpuscular Hemoglobin 32.7 Mean Corpuscular Hemoglobin Concent 35.4 Red Cell Distribution Width 12.8 Platelet Count 211 Mean Platelet Volume 8.0 Neutrophils (%) (Auto) 69.6 Lymphocytes (%) (Auto) 15.6 Monocytes (%) (Auto) 11.6 Eosinophils (%) (Auto) 2.9 Basophils (%) (Auto) 0.3 Neutrophils # (Auto) 3.5 Lymphocytes # (Auto) 0.8 Monocytes # (Auto) 0.6 Eosinophils # (Auto) 0.1 Basophils # (Auto) 0.0 CBC Comment DIFF FINAL Differential Comment Prothrombin Time 16.1 Prothromb Time International Ratio 1.6 Blood Urea Nitrogen 22 Creatinine 0.84 Random Glucose 98 Calcium Level 9.3 Magnesium Level 2.0 Sodium Level 135 Potassium Level 3.9 Chloride Level 102 Carbon Dioxide Level 24.2 Anion Gap 9 Estimat Glomerular Filtration Rate 90 Troponin I 5.25 Result Diagram: 06/08/17 1527 06/08/17 1527 Imaging Last Impressions Chest X-Ray 06/08/17 1458 Signed Impressions: Service Date/Time: Thursday, June 08, 2017 15:21 - CONCLUSION: 1. Post median sternotomy changes. The lungs are clear. The examination is stable compared to a prior dated 05/31/17. Solis Liz MD Upper Extremity Ultrasound 06/08/17 0000 Signed Impressions: Service Date/Time: Thursday, June 08, 2017 16:20 - CONCLUSION: 1. Thrombosis of the cephalic vein from the antecubital fossa to the mid aspect of the arm. Solis Liz MD Lower Extremity Ultrasound 06/08/17 0000 Signed Impressions: Service Date/Time: Thursday, June 08, 2017 16:10 - CONCLUSION: 1. No hematoma or pseudoaneurysm identified. 2. Lymph node as above. Solis Liz MD CT Angiography 06/08/17 0000 Signed Impressions: Service Date/Time: Thursday, June 08, 2017 17:53 - CONCLUSION: 1. No pulmonary embolus identified. 2. Patient is post median sternotomy. 3. Degenerative changes within the thoracic spine. 4. Multiple punctate gallstones are evident within the gallbladder. Solis Liz MD Caprini VTE Risk Assessment Caprini VTE Risk Assessment: No/Low Risk (score <= 1) Caprini Risk Assessment Model Point Value = 1 Point Value = 2 Point Value = 3 Point Value = 5 Age 41-60 Minor surgery BMI > 25 kg/m2 Swollen legs Varicose veins or History of unexplained or recurrent spontaneous Oral contraceptives or hormone replacement Sepsis (< 1 month) Serious lung disease, including pneumonia (< 1 month) Abnormal pulmonary function Acute myocardial infarction Congestive heart failure (< 1 month) History of inflammatory bowel disease Medical patient at bed rest Age 61-74 Arthroscopic surgery Major open surgery (> 45 min) Laparoscopic surgery (> 45 min) Malignancy Confined to bed (> 72 hours) Immobilizing plaster cast Central venous access Age >= 75 History of VTE Family history of VTE Factor V Leiden Prothrombin [id number] Lupus anticoagulant Anticardiolipin antibodies Elevated serum homocysteine Heparin-induced thrombocytopenia Other congenital or acquired thrombophilia Stroke (< 1 month) Elective arthroplasty Hip, pelvis, or leg fracture Acute spinal cord injury (< 1 month) Prophylaxis Regimen Total Risk Factor Score Risk Level Prophylaxis Regimen 0-1 Low Early ambulation 2 Moderate Order ONE of the following: *Sequential Compression Device (SCD) *Heparin 5000 units SQ BID 3-4 Higher Order ONE of the following medications: *Heparin 5000 units SQ TID *Enoxaparin/Lovenox 40 mg SQ daily (WT < 150 kg, CrCl > 30 mL/min) *Enoxaparin/Lovenox 30 mg SQ daily (WT < 150 kg, CrCl > 10-29 mL/min) *Enoxaparin/Lovenox 30 mg SQ BID (WT < 150 kg, CrCl > 30 mL/min) AND/OR *Sequential Compression Device (SCD) 5 or more Highest Order ONE of the following medications: *Heparin 5000 units SQ TID (Preferred with Epidurals) *Enoxaparin/Lovenox 40 mg SQ daily (WT < 150 kg, CrCl > 30 mL/min) *Enoxaparin/Lovenox 30 mg SQ daily (WT < 150 kg, CrCl > 10-29 mL/min) *Enoxaparin/Lovenox 30 mg SQ BID (WT < 150 kg, CrCl > 30 mL/min) AND *Sequential Compression Device (SCD) Assessment and Plan Problem List: (1) Chest pain ICD Codes: R07.9 - Chest pain, unspecified Status: Acute Plan: Mr. Gonzales is a pleasant 71 y/o WM with of CAD s/p CABG x 3 in 1997, unstable angina, hx of aortic valve replacement with bioprosthetic valve and previous stenting. Patient was recently seen [facility] [place] [facility] admitted from 05/31/17 - . During recent hospitalization patient had LHC 06/03/17 with 2 makayla to svg/ rca then patient continued to have chest pain and was taken for a second C with PCI SVG-OM, 2 additional stents placed with Dr Garces. Patient then returned to the ER today with multiple complaints including SOB and sensation of heart pounding with certain positions. - Patient did not fill the prescriptions he was discharged with due to cost. According to family members in the room patient was given samples from cardiology. Patient's is not currently available to clarify. - Initial troponin elevated 5.25, continue serial troponin - Initial EKG reviewed and reveals: Normal sinus rhythm, normal axis, nonspecific ST-T wave changes, first-degree AV block. Heart rate of 68 bpm, serial EKGs - Will monitor patient overnight on telemetry - consult to cardiology (2) Superficial thrombophlebitis ICD Codes: I80.9 - Phlebitis and thrombophlebitis of unspecified site Status: Acute Plan: - Upper extremity US: thrombosis of the cephalic vein from the antecubital fossa to the mid aspect of the arm. - K Therma pad (3) HTN (hypertension) ICD Codes: I10 - Essential (primary) hypertension Status: Chronic Plan: - Continue patient's home metoprolol 25 mg PO BID - monitor BP (4) Hyperlipidemia ICD Codes: E78.5 - Hyperlipidemia, unspecified Status: Chronic Plan: - Continue patient's home pravastatin Assessment and Plan Patient examined. Assessment and plan formulated with Deepali Moore PA-C. I agree with the above. Pt presented to ER today with multiple complaints. Pt c/o palpitations while sleeping with perhaps some positional relief. Not clear if pt followed new medication regimen upon discharge 2 days ago. Will try to clarify with pt's in AM. Pt resumed on medication list from recent discharge. Will obtain serial EKGs and serial Go. Will discuss case with pt's [employer] Senior Manager, Dr. Garces, 06/10/17. Physician Certification 2 Midnight Certification Type: Admission for Inpatient Services Order for Inpatient Services The services are ordered in accordance with Medicare regulations or non- Medicare payer requirements, as applicable. In the case of services not specified as inpatient-only, they are appropriately provided as inpatient services in accordance with the 2-midnight benchmark. Estimated LOS (days): 3 days is the estimated time the patient will need to remain in the hospital, assuming treatment plan goals are met and no additional complications. Post-Hospital Plan: Not yet determined Problem Qualifiers (1) Chest pain: Qualified Codes: R07.9 - Chest pain, unspecified (2) Superficial thrombophlebitis: Qualified Codes: I80.8 - Phlebitis and thrombophlebitis of other sites Deepali Moore Jun 08, 2017 19:11 Madi Edwards DO Jun 08, 2017 22:22
[2017-06-08 20:00] VITALS: O2SAT 96
[2017-06-08 20:30] VITALS: BP 130/65; PULSE 70; RESP 18; TEMP 98; O2SAT 98
[2017-06-08] MEDS: METOPROLOL TARTRATE 25 MG TAB PO SCH (21:20)
[2017-06-08] MEDS: APIXABAN 5 MG TABLET PO SCH (21:20)
[2017-06-08] MEDS: SODIUM CHLORIDE 0.9% FLUSH 10 ML FLUSH IV FLUSH SCH (21:23)
[2017-06-08] MEDS: PRAVASTATIN SOD 20 MG TAB PO SCH (21:46)
[2017-06-08] MEDS: ISOSORBIDE MONONITRATE 60 MG CR TAB (IMDUR) PO SCH (21:46)
--- NOTE | 2017-06-08 23:09 | PD.CONS ---
HPI Service Cardiology Consult Requested By Madi Ulrich Reason for Consult Elevated troponin Primary Care Physician Diallo Ocampo D.O. History of Present Illness Mr. Gonzales is a pleasant 71 y/o, returned to ER today because of varies symptoms , including headache, left arm aching, left groin discomforts, and palpitation while laying on his right side. He has extensive cardia hx, with CAD s/p CABG x 3 in 1997, hx of aortic valve replacement with bioprosthetic valve and previous stenting. Patient was recently [place] [facility] [place] 06/06/17. During recent hospitalization patient had C 06/03/17 with 2 MAKAYLA stents to SVG to RCA. patient continued to have chest pain and was taken for a second [facility] 06/04/17 with PCI SVG-OM, 2 additional stents placed with Dr Garces. Patient then returned to the ER with multiple concerns. Patient c/o episodes at night where he experienced the feeling of his heart pounding and SOB when laying in certain positions. The shortness of breath and feeling of chest pounding resolved with position change. During this episode patient denies nausea/vomiting or diaphoresis. The episode lasted about 1 hour. Patient also c/o headache which has resolved. Then patient c/o fatigue after walking his dog earlier today. Patient also c/o bruising on his left arm where he had an IV. Patient then had pain in his groin from the cardiac catheter site. The pain was resolved after taking a [place]. At this time patient reports he feels well and all of his symptoms have resolved. Patient did not fill the prescriptions he was discharged with due to cost. According to family members in the room patient was given samples from cardiology. Patient's is not currently available to clarify. Review of Systems Consitutional: COMPLAINS OF: Fatigue, DENIES: Fever, Chills, Weight gain, Weight loss Eyes: DENIES: Amaurosis [place], Change in vision HEENT: COMPLAINS OF: Lightheadedness, DENIES: Change in hearing Respiratory: COMPLAINS OF: See HPI, DENIES: Cough, Snoring, Shortness of breath , Wheezing, Sputum production Cardiovascular: COMPLAINS OF: See HPI, DENIES: Chest pain, Palpitations, Syncope, Tachycardia Gastrointestinal: COMPLAINS OF: Nausea, DENIES: Vomiting, Change in bowel habits, Reflux, Bloody stools, Melena Genitourinary: DENIES: Urinary incontinence, Difficulty voiding Integumentary: DENIES: Rash Neurologic: DENIES: Tingling or numbness, Memory problems, Poor Balance, Stroke symptoms Musculoskeletal: COMPLAINS OF: Joint pain, DENIES: Muscle pain, Limited range of motion, Back pain Psychiatric: COMPLAINS OF: Anxiety, DENIES: Depression, Sleep disturbances Hematologic: DENIES: Bruising tendencies, Bleeding tendencies Endocrine: DENIES: Weight gain, Weight loss, Thyroid disease Past Family Social History Allergies: Coded Allergies: atorvastatin (Unverified Allergy, Unknown, 11/06/16) clopidogrel (Unverified Allergy, Unknown, 11/06/16) simvastatin (Unverified Allergy, Unknown, 11/06/16) Past Medical History CAD with hx of [place] Hx of aortic valve stenosis Unstable angina Prediabetes HTN Hyperlipidemia Dysphagia ?strictures 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 Past Surgical History CABG x 3 in 1997 AVR with bioprosthetic valve in 2008 Tonsillectomy at age 1 Hx of EGD with dilation Reported Medications Reported Meds & Active Scripts Active Pravachol (Pravastatin) 20 Mg Tab 20 Mg PO HS Isosorbide Mononitrate ER (Isosorbide Mononitrate) 60 Mg Tab 60 Mg PO BID 30 Days Hydrocodone-Acetamin 5-325 mg (Hydrocodone/Acetaminophen) 5 Mg-325 Mg Tablet 1 Tab PO Q4H PRN Nitrostat SL (Nitroglycerin) 0.4 Mg Subl 0.4 Mg SL Q5M PRN Reported Effient (Prasugrel) 10 Mg Tab 10 Mg PO DAILY Protonix (Pantoprazole Sodium) 40 Mg Tab 40 Mg PO DAILY Eliquis (Apixaban) 5 Mg Tab 5 Mg PO BID Amiodarone (Amiodarone HCl) 200 Mg Tab 200 Mg PO DAILY Selenium 200 Mcg Tab 200 Mg PO DAILY Multiple Vitamin 1 Tab 1 Tab PO DAILY Ro-C 1,000 mg Tablet (Ascorbate Calcium/Bioflavonoid) 1,000 Mg-200 Mg Tablet 1,000 Mg PO DAILY Co Q-10 (Coenzyme Q10 (Ubidecarenone)) 100 Mg Cap 100 Mg PO DAILY Metoprolol Tartrate 25 Mg Tab 25 Mg PO BID Vitamin D3 Maximum Strength (Cholecalciferol) 5,000 Unit Cap 5,000 Units PO DAILY Aspirin 81 Mg Chew 81 Mg PO DAILY Active Ordered Medications Current Medications Medications (Trade) Dose Ordered Sig/Nate Route Start Time Stop Time Status Last Admin (NS Flush) 2 ml UNSCH PRN IVF 06/08/17 15:00 (NS Flush) 2 ml UNSCH PRN IV FLUSH 06/08/17 18:45 (NS Flush) 2 ml BID IV FLUSH 06/08/17 21:00 06/08/17 21:23 (Tylenol) 650 mg Q4H PRN PO 06/08/17 18:45 (Zofran Inj) 4 mg Q6H PRN IVP 06/08/17 18:45 (Narcan Inj) 0.4 mg UNSCH PRN IV PUSH 06/08/17 18:45 (Milk Of Magnesia Liq) 30 ml Q12H PRN PO 06/08/17 18:45 (Aspirin Chew) 81 mg DAILY PO 06/09/17 09:00 (Nitrostat Sl) 0.4 mg Q5M PRN SL 06/08/17 19:00 (Imdur) 60 mg BID PO 06/08/17 21:00 06/08/17 21:46 (Lopressor) 25 mg BID PO 06/08/17 21:00 06/08/17 21:20 (Protonix) 40 mg DAILY PO 06/09/17 09:00 (Pravachol) 20 mg HS PO 06/08/17 21:00 06/08/17 21:46 (Cordarone) 200 mg DAILY PO 06/09/17 09:00 (Eliquis) 5 mg BID PO 06/08/17 21:00 06/08/17 21:20 (Effient) 10 mg DAILY PO 06/09/17 09:00 Family History Father from CAD/[place] Brother with hx of CAD Mother with hx of lung cancer Social History Pt with remote hx of tobacco use, quit smoking in 1965 Denies any alcohol use Pt is and lives locally Physical Exam Vital Signs Vital Signs Date Time Temp Pulse Resp B/P (MAP) Pulse Ox O2 Delivery O2 Flow Rate FiO2 06/08/17 20:30 98.0 70 18 130/65 (86) 98 Room Air 06/08/17 20:00 96 06/08/17 18:36 69 18 119/62 (81) 96 Room Air 06/08/17 15:07 97 Room Air 06/08/17 15:07 89 18 97 Room Air 06/08/17 15:00 89 18 139/84 (102) 97 Room Air 06/08/17 15:00 68 18 97 Room Air 06/08/17 14:38 97.7 75 18 122/64 (83) 96 Physical Exam GENERAL: Very pleasant, comfortable, in no apparent distress. HEENT: Atraumatic. Normocephalic. No temporal or scalp tenderness. No scleral icterus. Airway patent. NECK: Trachea midline, supple, nontender. CARDIO: Regular rate and rhythm. 2/6 apical systolic murmur. No edema. left groin moderate bruises, small hematoma. RESP: CTA bilaterally. No wheezes, rales, or rhonchi. ABD: +BS, soft, non-tender, nondistended. EXT: Extremities without clubbing, cyanosis, or edema. NEURO: Awake and alert. Motor and sensory grossly within normal limits. Normal speech. Laboratory Laboratory Tests Test 06/08/17 15:27 White Blood Count 5.1 Red Blood Count 4.20 Hemoglobin 13.7 Hematocrit 38.8 Mean Corpuscular Volume 92.5 Mean Corpuscular Hemoglobin 32.7 Mean Corpuscular Hemoglobin Concent 35.4 Red Cell Distribution Width 12.8 Platelet Count 211 Mean Platelet Volume 8.0 Neutrophils (%) (Auto) 69.6 Lymphocytes (%) (Auto) 15.6 Monocytes (%) (Auto) 11.6 Eosinophils (%) (Auto) 2.9 Basophils (%) (Auto) 0.3 Neutrophils # (Auto) 3.5 Lymphocytes # (Auto) 0.8 Monocytes # (Auto) 0.6 Eosinophils # (Auto) 0.1 Basophils # (Auto) 0.0 CBC Comment DIFF FINAL Differential Comment Prothrombin Time 16.1 Prothromb Time International Ratio 1.6 Blood Urea Nitrogen 22 Creatinine 0.84 Random Glucose 98 Calcium Level 9.3 Magnesium Level 2.0 Sodium Level 135 Potassium Level 3.9 Chloride Level 102 Carbon Dioxide Level 24.2 Anion Gap 9 Estimat Glomerular Filtration Rate 90 Troponin I 5.25 Result Diagram: 06/08/17 1527 06/08/17 1527 Assessment and Plan Problem List: (1) NSTEMI (non-ST elevated myocardial infarction) ICD Codes: I21.4 - Non-ST elevation (NSTEMI) myocardial infarction (2) Atrial fibrillation with rapid ventricular response ICD Codes: I48.91 - Unspecified atrial fibrillation (3) Lightheaded ICD Codes: R42 - Dizziness and giddiness Status: Acute (4) CAD (coronary artery disease) ICD Codes: I25.10 - Atherosclerotic heart disease of [place] coronary artery without angina pectoris Status: Chronic (5) Hyperlipidemia ICD Codes: E78.5 - Hyperlipidemia, unspecified Status: Chronic (6) HTN (hypertension) ICD Codes: I10 - Essential (primary) hypertension Status: Chronic Assessment and Plan 1. CAD, hx of CABG, PCI. was recently [place] [facility] [place]/06/17. During recent hospitalization patient had LHC 06/03/17 with 2 makayla to svg/rca then patient continued to have chest pain and was taken for a second [facility] with PCI SVG-OM, 2 additional stents placed with Dr Garces. - Initial troponin elevated 5.25, continue serial troponin, probably due to recent [place], thought recurrent ischemic event also possible. Will check total CPK also to evaluate trend. - Initial EKG showed NSR,, nonspecific ST-T wave changes, - Patient did not fill the prescriptions he was discharged with due to cost. According to family members in the room patient was given samples from cardiology. Will continue Aspirin, Effient and statin for now (2) Superficial thrombophlebitis Upper extremity US: thrombosis of the cephalic vein from the antecubital fossa to the mid aspect of the arm. - K Therma pad (3) HTN (hypertension) Continue patient's home metoprolol 25 mg PO BID - monitor BP (4) Hyperlipidemia - Continue patient's home pravastatin Wing Ritu Carlisle MD Jun 08, 2017 23:09
[2017-06-09] VITALS (25 sets, daily range): BP systolic 111–147; BP diastolic 69–84; PULSE 63–76; RESP 17–20; TEMP 98–98.3; O2SAT 95–98
[2017-06-09 02:06] LABS: TROPONIN I 5.45 NG/ML (0.02-0.05)
[2017-06-09] MEDS: PANTOPRAZOLE SOD 40 MG DELAYED RELEASE TAB PO SCH (09:48)
[2017-06-09] MEDS: METOPROLOL TARTRATE 25 MG TAB PO SCH ×2 (09:48→19:56)
[2017-06-09] MEDS: ISOSORBIDE MONONITRATE 60 MG CR TAB (IMDUR) PO SCH ×2 (09:48→19:56)
[2017-06-09] MEDS: PRASUGREL 10 MG TAB PO SCH (09:48)
[2017-06-09] MEDS: APIXABAN 5 MG TABLET PO SCH ×2 (09:49→19:56)
[2017-06-09] MEDS: AMIODARONE 200 MG TAB PO SCH (09:49)
[2017-06-09] MEDS: SODIUM CHLORIDE 0.9% FLUSH 10 ML FLUSH IV FLUSH SCH ×2 (09:50→19:56)
[2017-06-09] MEDS: ASPIRIN 81 MG CHEW TAB PO SCH (09:50)
--- NOTE | 2017-06-09 10:45 | HHI.PR ---
Subjective Remarks Patient c/o indigestion after eating dinner last night and headache last night that have both resolved No other complaints Objective Vitals Vital Signs Date Time Temp Pulse Resp B/P (MAP) Pulse Ox O2 Delivery O2 Flow Rate FiO2 06/09/17 10:00 72 06/09/17 09:00 72 06/09/17 08:00 72 06/09/17 07:39 98.0 73 18 131/76 (94) 95 06/09/17 07:00 69 06/09/17 06:00 74 06/09/17 05:00 72 06/09/17 04:00 70 06/09/17 03:55 98.3 70 20 147/75 (99) 97 06/09/17 03:00 72 06/09/17 02:00 63 06/09/17 01:00 66 06/09/17 00:00 68 06/09/17 00:00 98.0 68 20 124/69 (87) 98 06/08/17 20:30 98.0 70 18 130/65 (86) 98 Room Air 06/08/17 20:00 96 06/08/17 18:36 69 18 119/62 (81) 96 Room Air 06/08/17 15:07 97 Room Air 06/08/17 15:07 89 18 97 Room Air 06/08/17 15:00 89 18 139/84 (102) 97 Room Air 06/08/17 15:00 68 18 97 Room Air 06/08/17 14:38 97.7 75 18 122/64 (83) 96 Result Diagram: 06/08/17 1527 06/08/17 1527 Other Results Laboratory Tests Test 06/08/17 15:27 06/09/17 00:13 White Blood Count 5.1 TH/MM3 Red Blood Count 4.20 MIL/MM3 Hemoglobin 13.7 GM/DL Hematocrit 38.8 % Mean Corpuscular Volume 92.5 FL Mean Corpuscular Hemoglobin 32.7 PG Mean Corpuscular Hemoglobin Concent 35.4 % Red Cell Distribution Width 12.8 % Platelet Count 211 TH/MM3 Mean Platelet Volume 8.0 FL Neutrophils (%) (Auto) 69.6 % Lymphocytes (%) (Auto) 15.6 % Monocytes (%) (Auto) 11.6 % Eosinophils (%) (Auto) 2.9 % Basophils (%) (Auto) 0.3 % Neutrophils # (Auto) 3.5 TH/MM3 Lymphocytes # (Auto) 0.8 TH/MM3 Monocytes # (Auto) 0.6 TH/MM3 Eosinophils # (Auto) 0.1 TH/MM3 Basophils # (Auto) 0.0 TH/MM3 CBC Comment DIFF FINAL Differential Comment Prothrombin Time 16.1 SEC Prothromb Time International Ratio 1.6 RATIO Blood Urea Nitrogen 22 MG/DL Creatinine 0.84 MG/DL Random Glucose 98 MG/DL Calcium Level 9.3 MG/DL Magnesium Level 2.0 MG/DL 2.0 MG/DL Sodium Level 135 MEQ/L Potassium Level 3.9 MEQ/L Chloride Level 102 MEQ/L Carbon Dioxide Level 24.2 MEQ/L Anion Gap 9 MEQ/L Estimat Glomerular Filtration Rate 90 ML/MIN Troponin I 5.25 NG/ML 5.45 NG/ML Total Creatine Kinase 96 U/L Imaging Last Impressions Chest X-Ray 06/08/17 1458 Signed Impressions: Service Date/Time: Thursday, June 08, 2017 15:21 - CONCLUSION: 1. Post median sternotomy changes. The lungs are clear. The examination is stable compared to a prior dated 05/31/17. Solis Liz MD Upper Extremity Ultrasound 06/08/17 0000 Signed Impressions: Service Date/Time: Thursday, June 08, 2017 16:20 - CONCLUSION: 1. Thrombosis of the cephalic vein from the antecubital fossa to the mid aspect of the arm. Solis Liz MD Lower Extremity Ultrasound 06/08/17 0000 Signed Impressions: Service Date/Time: Thursday, June 08, 2017 16:10 - CONCLUSION: 1. No hematoma or pseudoaneurysm identified. 2. Lymph node as above. Solis Liz MD CT Angiography 06/08/17 0000 Signed Impressions: Service Date/Time: Thursday, June 08, 2017 17:53 - CONCLUSION: 1. No pulmonary embolus identified. 2. Patient is post median sternotomy. 3. Degenerative changes within the thoracic spine. 4. Multiple punctate gallstones are evident within the gallbladder. Solis Liz MD Objective Remarks GENERAL: This is a well-nourished, well-developed patient, in no apparent distress. SKIN: Left upper arm small area of erythema. bilateral groin sites healing ecchymosis CARDIOVASCULAR: Regular rate and rhythm RESPIRATORY: Clear to auscultation. Breath sounds equal bilaterally. GASTROINTESTINAL: Abdomen soft, non-tender, nondistended. MUSCULOSKELETAL: Extremities without clubbing, cyanosis, or edema. No joint tenderness, effusion, or edema noted. No calf tenderness. Negative Homans sign bilaterally. NEUROLOGICAL: Awake and alert. Motor and sensory grossly within normal limits. Five out of 5 muscle strength in all muscle groups. Normal speech. A/P Problem List: (1) Chest pain ICD Codes: R07.9 - Chest pain, unspecified Status: Acute Plan: Mr. Gonzales is a pleasant 71 y/o WM with of CAD s/p CABG x 3 in 1997, unstable angina, hx of aortic valve replacement with bioprosthetic valve and previous stenting. Patient was recently seen [facility] [place] 05[place]31/17 - . During recent hospitalization patient had LHC 06/03/17 with 2 makayla to svg/ rca then patient continued to have chest pain and was taken for a second [facility] with PCI SVG-OM, 2 additional stents placed with Dr Garces. Patient then returned to the ER today with multiple complaints including SOB and sensation of heart pounding with certain positions. - Patient did not fill the prescriptions he was discharged with due to cost. According to family members in the room patient was given samples from cardiology. - In further discussion with patient's patient was actually taking Isosorbide 60 mg PO daily, Brilinta, 90 mg, Xarelto 20 mg daily, aspirin 81 m PO daily, and metoprolol 12.5 mg BID. - Patient was DC'd on: Amiodarone (Amiodarone) 200 Mg Tab PO daily , Apixaban ( Eliquis) 5 Mg Tab PO BID, Hydrocodone/Acetaminophen (Hydrocodone-Acetamin 5-325 mg) 5 Mg-325 Mg Tablet 1 TAB PO Q4H PRN for pain 3-5, Nitroglycerin SL ( Nitrostat SL) 0.4 Mg Subl Q5M PRN for chest pain, Pantoprazole (Pantoprazole) 40 Mg Tab PO daily, Prasugrel (Effient) 10 Mg Tab PO DAILY, Aspirin (Aspirin) 81 Mg Chew, Cholecalciferol (Vitamin D3 Maximum Strength) 5,000 Unit Cap PO daily, Coenzyme Q10 (Ubidecarenone), Isosorbide Mononitrate ER (Isosorbide Mononitrate ER) 60 Mg Tab BID, Metoprolol Tartrate (Metoprolol Tartrate) 25 MG PO BID, Pravastatin (Pravastatin) 20 Mg Tab daily - Initial troponin elevated 5.25, 5.45 continue serial troponin - Initial EKG reviewed and reveals: Normal sinus rhythm, normal axis, nonspecific ST-T wave changes, first-degree AV block. Heart rate of 68 bpm, serial EKGs - Will monitor patient overnight on telemetry - consult to cardiology, appreciate input. Await Dr. Garces's recommendations on Saturday - NPO after midnight (2) Superficial thrombophlebitis ICD Codes: I80.9 - Phlebitis and thrombophlebitis of unspecified site Status: Acute Plan: - Upper extremity US: thrombosis of the cephalic vein from the antecubital fossa to the mid aspect of the arm. - K Therma pad (3) HTN (hypertension) ICD Codes: I10 - Essential (primary) hypertension Status: Chronic Plan: - Continue patient's home metoprolol 25 mg PO BID - monitor BP (4) Hyperlipidemia ICD Codes: E78.5 - Hyperlipidemia, unspecified Status: Chronic Plan: - Continue patient's home pravastatin Assessment and Plan Patient examined. Assessment and plan formulated with Deepali Moore PA-C. I agree with the above. Pt denies chest pain. Await review of case by pt's primary Back Line Cook, Dr. Garces. Anticipate discharge to home 06/10/17. Will need to clarify medications with Dr. Garces. I recommended against continued use of supplements. This appears to be added a great deal of confusion to the pt's medication regimen. Problem Qualifiers (1) Chest pain: Qualified Codes: R07.9 - Chest pain, unspecified (2) Superficial thrombophlebitis: Qualified Codes: I80.8 - Phlebitis and thrombophlebitis of other sites Deepali Moore Jun 09, 2017 10:45 Madi Edwards DO Jun 11, 2017 21:31
[2017-06-09] MEDS ORDERED: CALCIUM CARBONATE 500 MG CHEWABLE TAB CHEW PRN (11:45)
[2017-06-09 12:12] LABS: AUTOMATED NEUTROPHIL # 3.4 TH/MM3 (1.8-7.7); BASOPHIL % 0.3 % (0.0-2.0); EOSINOPHIL # 0.1 TH/MM3 (0-0.4); EOSINOPHIL % 2.2 % (0.0-4.0); HEMATOCRIT 36.8 % (39.0-51.0); LYMPH % 14.4 % (9.0-44.0); LYMPHOCYTE # 0.7 TH/MM3 (1.0-4.8); MEAN CELL VOLUME 91.5 FL (80.0-100.0); MEAN CORPUSCULAR HEMOGLOBIN 32.4 PG (27.0-34.0); MEAN CORPUSCULAR HGB CONC 35.3 % (32.0-36.0); MEAN PLATELET VOLUME 7.8 FL (7.0-11.0); MONO % 8.5 % (0.0-8.0); MONOCYTE # 0.4 TH/MM3 (0-0.9); NEUT % 74.6 % (16.0-70.0); PLATELET COUNT 228 TH/MM3 (150-450); RED BLOOD COUNT 4.02 MIL/MM3 (4.50-5.90); RED CELL DISTRIBUTION WIDTH 12.5 % (11.6-17.2); WHITE BLOOD COUNT 4.5 TH/MM3 (4.0-11.0)
[2017-06-09 12:35] LABS: BICARBONATE 23.5 MEQ/L (21.0-32.0); CALCIUM 8.9 MG/DL (8.5-10.1); CREATININE 0.76 MG/DL (0.60-1.30)
--- NOTE | 2017-06-09 12:37 | EKG ---
Date Performed: 06/08/2017 Time Performed: 15:06:48 PTAGE: 71 years EKG: Sinus rhythm WITH FIRST DEGREE AV BLOCK INDETERMINATE AXIS POSSIBLE INFERIOR MYOCARDIAL INFARCTION ABNORMAL ECG C ompared to PREVIOUS TRACING , the ST changes inferiorly have improved to some degree, otherwise no s ignificant change. PREVIOUS TRACIN06/04/2017 11.32 DOCTOR: Audie Bedoya Interpretating Date/Time 06/09/2017 12:36:48
--- NOTE | 2017-06-09 12:38 | EKG ---
Date Performed: 06/09/2017 Time Performed: 06:27:12 PTAGE: 71 years EKG: Sinus rhythm with borderline 1st degree A-V block Inferior and septal ST-T changes are nonspecific Borderline ECG Since PREVIOUS TRACING , no significant change noted PREVIOUS TRACIN06/08/2017 15.06 DOCTOR: Audie Bedoya Interpretating Date/Time 06/09/2017 12:37:04
[2017-06-09 12:50] LABS: TROPONIN I 3.31 NG/ML (0.02-0.05)
[2017-06-09] MEDS: PRAVASTATIN SOD 20 MG TAB PO SCH (19:56)
--- NOTE | 2017-06-09 20:04 | PD.CARD.PN ---
Subjective Subjective Remarks No further chest pain, no headache. He has a good day today Objective Medications Current Medications Medications (Trade) Dose Ordered Sig/Nate Route Start Time Stop Time Status Last Admin (NS Flush) 2 ml UNSCH PRN IVF 06/08/17 15:00 (NS Flush) 2 ml UNSCH PRN IV FLUSH 06/08/17 18:45 (NS Flush) 2 ml BID IV FLUSH 06/08/17 21:00 06/09/17 09:50 (Tylenol) 650 mg Q4H PRN PO 06/08/17 18:45 (Zofran Inj) 4 mg Q6H PRN IVP 06/08/17 18:45 (Narcan Inj) 0.4 mg UNSCH PRN IV PUSH 06/08/17 18:45 (Milk Of Magnesia Liq) 30 ml Q12H PRN PO 06/08/17 18:45 (Aspirin Chew) 81 mg DAILY PO 06/09/17 09:00 06/09/17 09:50 (Nitrostat Sl) 0.4 mg Q5M PRN SL 06/08/17 19:00 (Imdur) 60 mg BID PO 06/08/17 21:00 06/09/17 09:48 (Lopressor) 25 mg BID PO 06/08/17 21:00 06/09/17 09:48 (Protonix) 40 mg DAILY PO 06/09/17 09:00 06/09/17 09:48 (Pravachol) 20 mg HS PO 06/08/17 21:00 06/08/17 21:46 (Cordarone) 200 mg DAILY PO 06/09/17 09:00 06/09/17 09:49 (Eliquis) 5 mg BID PO 06/08/17 21:00 06/09/17 09:49 (Effient) 10 mg DAILY PO 06/09/17 09:00 06/09/17 09:48 (Tums Chew) 500 mg Q2H PRN CHEW 06/09/17 11:45 Vital Signs / I&O Vital Signs Date Time Temp Pulse Resp B/P (MAP) Pulse Ox O2 Delivery O2 Flow Rate FiO2 06/09/17 18:00 70 06/09/17 17:00 72 06/09/17 16:00 72 06/09/17 15:00 98.0 68 17 117/75 (89) 98 06/09/17 15:00 72 06/09/17 14:00 64 06/09/17 13:00 64 06/09/17 12:00 72 06/09/17 11:00 98.0 71 18 111/72 (85) 97 06/09/17 11:00 69 06/09/17 10:00 72 06/09/17 09:00 72 06/09/17 08:00 72 06/09/17 07:39 98.0 73 18 131/76 (94) 95 06/09/17 07:00 69 06/09/17 06:00 74 06/09/17 05:00 72 06/09/17 04:00 70 06/09/17 03:55 98.3 70 20 147/75 (99) 97 06/09/17 03:00 72 06/09/17 02:00 63 06/09/17 01:00 66 06/09/17 00:00 68 06/09/17 00:00 98.0 68 20 124/69 (87) 98 06/08/17 20:30 98.0 70 18 130/65 (86) 98 Room Air I/O 06/08/17 06/08/17 06/08/17 06/09/17 06/09/17 06/09/17 07:00 15:00 23:00 07:00 15:00 23:00 Intake Total 240 ml 480 ml Output Total 500 ml 700 ml Balance -260 ml -220 ml Intake Oral 240 ml 480 ml Output Urine Total 500 ml 700 ml # Bowel Movements 0 1 Physical Exam GENERAL: Very pleasant, comfortable, in no apparent distress. HEENT: Atraumatic. Normocephalic. No temporal or scalp tenderness. No scleral icterus. Airway patent. NECK: Trachea midline, supple, nontender. CARDIO: Regular rate and rhythm. 2/6 apical systolic murmur. No edema. left groin moderate bruises, small hematoma. RESP: CTA bilaterally. No wheezes, rales, or rhonchi. ABD: +BS, soft, non-tender, nondistended. EXT: Extremities without clubbing, cyanosis, or edema. NEURO: Awake and alert. Motor and sensory grossly within normal limits. Normal speech. Laboratory Item Value Date Time Total Creatine Kinase 1909 U/L H 06/04/17 0449 Total Creatine Kinase 96 U/L 06/09/17 0013 Total Creatine Kinase 84 U/L 06/09/17 1120 Troponin I 5.25 NG/ML *H 06/08/17 1527 Troponin I 3.31 NG/ML *H # 06/09/17 1120 Laboratory Tests Test 06/09/17 00:13 06/09/17 11:20 Magnesium Level 2.0 MG/DL Total Creatine Kinase 96 U/L 84 U/L Troponin I 5.45 NG/ML 3.31 NG/ML White Blood Count 4.5 TH/MM3 Red Blood Count 4.02 MIL/MM3 Hemoglobin 13.0 GM/DL Hematocrit 36.8 % Mean Corpuscular Volume 91.5 FL Mean Corpuscular Hemoglobin 32.4 PG Mean Corpuscular Hemoglobin Concent 35.3 % Red Cell Distribution Width 12.5 % Platelet Count 228 TH/MM3 Mean Platelet Volume 7.8 FL Neutrophils (%) (Auto) 74.6 % Lymphocytes (%) (Auto) 14.4 % Monocytes (%) (Auto) 8.5 % Eosinophils (%) (Auto) 2.2 % Basophils (%) (Auto) 0.3 % Neutrophils # (Auto) 3.4 TH/MM3 Lymphocytes # (Auto) 0.7 TH/MM3 Monocytes # (Auto) 0.4 TH/MM3 Eosinophils # (Auto) 0.1 TH/MM3 Basophils # (Auto) 0.0 TH/MM3 CBC Comment DIFF FINAL Differential Comment Blood Urea Nitrogen 17 MG/DL Creatinine 0.76 MG/DL Random Glucose 123 MG/DL Calcium Level 8.9 MG/DL Sodium Level 136 MEQ/L Potassium Level 3.6 MEQ/L Chloride Level 102 MEQ/L Carbon Dioxide Level 23.5 MEQ/L Anion Gap 11 MEQ/L Estimat Glomerular Filtration Rate 101 ML/MIN Assessment and Plan Problem List: (1) NSTEMI (non-ST elevated myocardial infarction) ICD Codes: I21.4 - Non-ST elevation (NSTEMI) myocardial infarction (2) Atrial fibrillation with rapid ventricular response ICD Codes: I48.91 - Unspecified atrial fibrillation (3) Lightheaded ICD Codes: R42 - Dizziness and giddiness Status: Acute (4) CAD (coronary artery disease) ICD Codes: I25.10 - Atherosclerotic heart disease of [place] coronary artery without angina pectoris Status: Chronic (5) Hyperlipidemia ICD Codes: E78.5 - Hyperlipidemia, unspecified Status: Chronic (6) HTN (hypertension) ICD Codes: I10 - Essential (primary) hypertension Status: Chronic Assessment and Plan 1. CAD, hx of CABG, PCI. was recently seen [facility] [place] admitted from 05/31/17 - 06/06/17. During recent hospitalization patient had C 06/03/17 with 2 makayla to svg/rca then patient continued to have chest pain and was taken for a second [facility] with PCI SVG-OM, 2 additional stents placed with Dr Garces. - Initial troponin elevated 5.25, trending down to 3.3. CPK trending down from 1900+ to 96. - Initial EKG showed NSR,, nonspecific ST-T wave changes, - Patient did not fill the prescriptions he was discharged with due to cost. According to family members in the room patient was given samples from cardiology. Will continue Aspirin, Effient and statin for now OK to DC home from cardiology standpoint. Follow up with dr. Garces in 1 week. (2) Superficial thrombophlebitis Upper extremity US: thrombosis of the cephalic vein from the antecubital fossa to the mid aspect of the arm. - K Therma pad (3) HTN (hypertension) Continue patient's home metoprolol 25 mg PO BID - monitor BP (4) Hyperlipidemia - Continue patient's home pravastatin Wing Ritu Carlisle MD Jun 09, 2017 20:04
[2017-06-10] VITALS (10 sets, daily range): BP systolic 99–131; BP diastolic 56–69; PULSE 66–85; RESP 18–20; TEMP 98.1–98.4; O2SAT 95–96
--- NOTE | 2017-06-10 07:39 | PD.CARD.PN ---
Subjective Subjective Remarks Patient is doing well with no issues. No chest pain, shortness of breath, palpitations. (Keaton Pitt) Objective Medications Current Medications Medications (Trade) Dose Ordered Sig/Nate Route Start Time Stop Time Status Last Admin (NS Flush) 2 ml UNSCH PRN IVF 06/08/17 15:00 (NS Flush) 2 ml UNSCH PRN IV FLUSH 06/08/17 18:45 (NS Flush) 2 ml BID IV FLUSH 06/08/17 21:00 06/09/17 19:56 (Tylenol) 650 mg Q4H PRN PO 06/08/17 18:45 (Zofran Inj) 4 mg Q6H PRN IVP 06/08/17 18:45 (Narcan Inj) 0.4 mg UNSCH PRN IV PUSH 06/08/17 18:45 (Milk Of Magnesia Liq) 30 ml Q12H PRN PO 06/08/17 18:45 (Aspirin Chew) 81 mg DAILY PO 06/09/17 09:00 06/09/17 09:50 (Nitrostat Sl) 0.4 mg Q5M PRN SL 06/08/17 19:00 (Imdur) 60 mg BID PO 06/08/17 21:00 06/09/17 19:56 (Lopressor) 25 mg BID PO 06/08/17 21:00 06/09/17 19:56 (Protonix) 40 mg DAILY PO 06/09/17 09:00 06/09/17 09:48 (Pravachol) 20 mg HS PO 06/08/17 21:00 06/09/17 19:56 (Cordarone) 200 mg DAILY PO 06/09/17 09:00 06/09/17 09:49 (Eliquis) 5 mg BID PO 06/08/17 21:00 06/09/17 19:56 (Effient) 10 mg DAILY PO 06/09/17 09:00 06/09/17 09:48 (Tums Chew) 500 mg Q2H PRN CHEW 06/09/17 11:45 Vital Signs / I&O Vital Signs Date Time Temp Pulse Resp B/P (MAP) Pulse Ox O2 Delivery O2 Flow Rate FiO2 06/10/17 06:00 71 06/10/17 05:00 66 06/10/17 04:00 Room Air 06/10/17 04:00 98.1 67 18 123/68 (86) 96 06/10/17 04:00 67 06/10/17 03:00 72 06/10/17 02:00 70 06/10/17 01:00 82 06/10/17 00:00 Room Air 06/10/17 00:00 98.4 85 20 131/56 (81) 96 06/10/17 00:00 85 06/09/17 23:00 74 06/09/17 22:00 63 06/09/17 21:00 70 06/09/17 20:00 66 06/09/17 20:00 98.2 76 20 135/84 (101) 97 06/09/17 18:00 70 06/09/17 17:00 72 06/09/17 16:00 72 06/09/17 15:00 98.0 68 17 117/75 (89) 98 06/09/17 15:00 72 06/09/17 14:00 64 06/09/17 13:00 64 06/09/17 12:00 72 06/09/17 11:00 98.0 71 18 111/72 (85) 97 06/09/17 11:00 69 06/09/17 10:00 72 06/09/17 09:00 72 06/09/17 08:00 72 06/09/17 07:39 98.0 73 18 131/76 (94) 95 I/O 06/09/17 06/09/17 06/09/17 06/10/17 06/10/17 06/10/17 07:00 15:00 23:00 07:00 15:00 23:00 Intake Total 240 ml 480 ml 240 ml Output Total 500 ml 700 ml 700 ml Balance -260 ml -220 ml -460 ml Intake Oral 240 ml 480 ml 240 ml Output Urine Total 500 ml 700 ml 700 ml # Bowel Movements 0 1 0 Physical Exam GENERAL: Well-developed well-nourished. In no acute distress. NECK: No carotid bruits. No JVD. CARDIOVASCULAR: Regular rate and rhythm. No murmur appreciated. RESPIRATORY: No accessory muscle use. Clear to auscultation. Breath sounds equal bilaterally. MUSCULOSKELETAL: No clubbing or cyanosis. No edema. NEUROLOGICAL: Awake and alert. Normal speech. Laboratory Laboratory Tests Test 06/09/17 11:20 White Blood Count 4.5 TH/MM3 Red Blood Count 4.02 MIL/MM3 Hemoglobin 13.0 GM/DL Hematocrit 36.8 % Mean Corpuscular Volume 91.5 FL Mean Corpuscular Hemoglobin 32.4 PG Mean Corpuscular Hemoglobin Concent 35.3 % Red Cell Distribution Width 12.5 % Platelet Count 228 TH/MM3 Mean Platelet Volume 7.8 FL Neutrophils (%) (Auto) 74.6 % Lymphocytes (%) (Auto) 14.4 % Monocytes (%) (Auto) 8.5 % Eosinophils (%) (Auto) 2.2 % Basophils (%) (Auto) 0.3 % Neutrophils # (Auto) 3.4 TH/MM3 Lymphocytes # (Auto) 0.7 TH/MM3 Monocytes # (Auto) 0.4 TH/MM3 Eosinophils # (Auto) 0.1 TH/MM3 Basophils # (Auto) 0.0 TH/MM3 CBC Comment DIFF FINAL Differential Comment Blood Urea Nitrogen 17 MG/DL Creatinine 0.76 MG/DL Random Glucose 123 MG/DL Calcium Level 8.9 MG/DL Sodium Level 136 MEQ/L Potassium Level 3.6 MEQ/L Chloride Level 102 MEQ/L Carbon Dioxide Level 23.5 MEQ/L Anion Gap 11 MEQ/L Estimat Glomerular Filtration Rate 101 ML/MIN Total Creatine Kinase 84 U/L Troponin I 3.31 NG/ML Imaging Last Impressions Chest X-Ray 06/08/17 1458 Signed Impressions: Service Date/Time: Thursday, June 08, 2017 15:21 - CONCLUSION: 1. Post median sternotomy changes. The lungs are clear. The examination is stable compared to a prior dated 05/31/17. Solis Liz MD Upper Extremity Ultrasound 06/08/17 0000 Signed Impressions: Service Date/Time: Thursday, June 08, 2017 16:20 - CONCLUSION: 1. Thrombosis of the cephalic vein from the antecubital fossa to the mid aspect of the arm. Solis Liz MD Lower Extremity Ultrasound 06/08/17 0000 Signed Impressions: Service Date/Time: Thursday, June 08, 2017 16:10 - CONCLUSION: 1. No hematoma or pseudoaneurysm identified. 2. Lymph node as above. Solis Liz MD CT Angiography 06/08/17 0000 Signed Impressions: Service Date/Time: Thursday, June 08, 2017 17:53 - CONCLUSION: 1. No pulmonary embolus identified. 2. Patient is post median sternotomy. 3. Degenerative changes within the thoracic spine. 4. Multiple punctate gallstones are evident within the gallbladder. Solis Liz MD (Keaton Pitt) Assessment and Plan Problem List: (1) NSTEMI (non-ST elevated myocardial infarction) ICD Codes: I21.4 - Non-ST elevation (NSTEMI) myocardial infarction (2) Atrial fibrillation with rapid ventricular response ICD Codes: I48.91 - Unspecified atrial fibrillation (3) Lightheaded ICD Codes: R42 - Dizziness and giddiness Status: Acute (4) CAD (coronary artery disease) ICD Codes: I25.10 - Atherosclerotic heart disease of [place] coronary artery without angina pectoris Status: Chronic (5) Hyperlipidemia ICD Codes: E78.5 - Hyperlipidemia, unspecified Status: Chronic (6) HTN (hypertension) ICD Codes: I10 - Essential (primary) hypertension Status: Chronic Assessment and Plan 71-year-old male who returns after recent hospitalization for various symptoms including headache, left arm pain, left groin discomfort, palpitations CAD, hx of CABG, PCI. was recently admitted from 05/31/17 - 06/06/17. During recent hospitalization patient had LHC 06/03/17 with 2 makayla to svg/rca then patient continued to have chest pain and was taken for a second LHC 06/04/17 with PCI SVG-OM, 2 additional stents placed: - Initial troponin elevated 5.25, trending down to 3.3. - EKG w/ NSR, nonspecific ST-T wave changes - Continue Aspirin, Effient, Imdur, statin Recent postprocedural atrial fibrillation: - Continue amiodarone, Eliquis, metoprolol Patient is cleared from a cardiology standpoint for discharge. (Keaton Pitt) Assessment and Plan DC on xarelto brillinta due to cost and formulary coverage FU in OPD (Blane Garces MD) Keaton Pitt Jun 10, 2017 07:39 Blane Garces MD Jun 10, 2017 09:10
[2017-06-10] MEDS: ISOSORBIDE MONONITRATE 60 MG CR TAB (IMDUR) PO SCH (09:36)
[2017-06-10] MEDS: ASPIRIN 81 MG CHEW TAB PO SCH (09:36)
[2017-06-10] MEDS: AMIODARONE 200 MG TAB PO SCH (09:37)
[2017-06-10] MEDS: SODIUM CHLORIDE 0.9% FLUSH 10 ML FLUSH IV FLUSH SCH (09:37)
[2017-06-10] MEDS: PANTOPRAZOLE SOD 40 MG DELAYED RELEASE TAB PO SCH (09:37)
[2017-06-10] MEDS: APIXABAN 5 MG TABLET PO SCH (09:37)
[2017-06-10] MEDS: PRASUGREL 10 MG TAB PO SCH (09:37)
[2017-06-10] MEDS: METOPROLOL TARTRATE 25 MG TAB PO SCH (09:37)
--- NOTE | 2017-06-10 09:41 | HHI.PR ---
Subjective Remarks doing ok. no cp Objective Vitals heart reg lung cta abd /snt ext no edema Vital Signs Date Time Temp Pulse Resp B/P (MAP) Pulse Ox O2 Delivery O2 Flow Rate FiO2 06/10/17 07:53 68 06/10/17 07:53 95 Room Air 06/10/17 07:53 98.4 68 18 99/69 (79) 95 06/10/17 06:00 71 06/10/17 05:00 66 06/10/17 04:00 Room Air 06/10/17 04:00 98.1 67 18 123/68 (86) 96 06/10/17 04:00 67 06/10/17 03:00 72 06/10/17 02:00 70 06/10/17 01:00 82 06/10/17 00:00 Room Air 06/10/17 00:00 98.4 85 20 131/56 (81) 96 06/10/17 00:00 85 06/09/17 23:00 74 06/09/17 22:00 63 06/09/17 21:00 70 06/09/17 20:00 66 06/09/17 20:00 98.2 76 20 135/84 (101) 97 06/09/17 18:00 70 06/09/17 17:00 72 06/09/17 16:00 72 06/09/17 15:00 98.0 68 17 117/75 (89) 98 06/09/17 15:00 72 06/09/17 14:00 64 06/09/17 13:00 64 06/09/17 12:00 72 06/09/17 11:00 98.0 71 18 111/72 (85) 97 06/09/17 11:00 69 06/09/17 10:00 72 Result Diagram: 06/09/17 1120 06/09/17 1120 Imaging Last Impressions Chest X-Ray 06/08/17 1458 Signed Impressions: Service Date/Time: Thursday, June 08, 2017 15:21 - CONCLUSION: 1. Post median sternotomy changes. The lungs are clear. The examination is stable compared to a prior dated 05/31/17. Solis Liz MD Upper Extremity Ultrasound 06/08/17 0000 Signed Impressions: Service Date/Time: Thursday, June 08, 2017 16:20 - CONCLUSION: 1. Thrombosis of the cephalic vein from the antecubital fossa to the mid aspect of the arm. Solis Liz MD Lower Extremity Ultrasound 06/08/17 0000 Signed Impressions: Service Date/Time: Thursday, June 08, 2017 16:10 - CONCLUSION: 1. No hematoma or pseudoaneurysm identified. 2. Lymph node as above. Solis Liz MD CT Angiography 06/08/17 0000 Signed Impressions: Service Date/Time: Thursday, June 08, 2017 17:53 - CONCLUSION: 1. No pulmonary embolus identified. 2. Patient is post median sternotomy. 3. Degenerative changes within the thoracic spine. 4. Multiple punctate gallstones are evident within the gallbladder. Solis Liz MD A/P Problem List: (1) Chest pain ICD Codes: R07.9 - Chest pain, unspecified Status: Acute Plan: Mr. Gonzales is a pleasant 71 y/o WM with of CAD s/p CABG x 3 in 1997, unstable angina, hx of aortic valve replacement with bioprosthetic valve and previous stenting. Patient was recently seen [facility] [place] admitted from 05/31/17 - . During recent hospitalization patient had LHC 06/03/17 with 2 makayla to svg/ rca then patient continued to have chest pain and was taken for a second LHC with PCI SVG-OM, 2 additional stents placed with Dr Garces. Patient then returned to the ER today with multiple complaints including SOB and sensation of heart pounding with certain positions. - Patient did not fill the prescriptions he was discharged with due to cost. - discussed with pt//daughter....DR Garces. - [facility] says [facility] working [facility] filling [facility] meds but would be 2 weeks at the earliest - gave family free drug card for brillinta and xarelto... - discussed with Dr Garces at bedside...ok to to home today. (2) Superficial thrombophlebitis ICD Codes: I80.9 - Phlebitis and thrombophlebitis of unspecified site Status: Acute Plan: - Upper extremity US: thrombosis of the cephalic vein from the antecubital fossa to the mid aspect of the arm. - K Therma pad (3) HTN (hypertension) ICD Codes: I10 - Essential (primary) hypertension Status: Chronic Plan: - Continue patient's home metoprolol 25 mg PO BID - monitor BP (4) Hyperlipidemia ICD Codes: E78.5 - Hyperlipidemia, unspecified Status: Chronic Plan: - Continue patient's home pravastatin Problem Qualifiers (1) Chest pain: Qualified Codes: R07.9 - Chest pain, unspecified (2) Superficial thrombophlebitis: Qualified Codes: I80.8 - Phlebitis and thrombophlebitis of other sites Audie Tavera MD Jun 10, 2017 09:41
[2017-06-10] MEDS ORDERED: XARE20TA PO (09:43)
[2017-06-10] MEDS ORDERED: BRIL90TA PO (09:43)
--- NOTE | 2017-06-10 09:44 | HHI.DCPOC ---
Discharge Care Plan Diagnosis: (1) Chest pain (2) CAD (coronary artery disease) Goals to Promote Your Health * To prevent worsening of your condition and complications * To maintain your health at the optimal level Directions to Meet Your Goals Take your medications as prescribed Follow your dietary instruction Follow activity as directed Keep your appointments as scheduled Take your immunizations and boosters as scheduled If your symptoms worsen call your PCP, if no PCP go to Urgent Care Center or Emergency Room Smoking is Dangerous to Your Health. Avoid second hand smoke Call the 24-hour hour crisis hotline for domestic abuse at Audie Tavera MD Jun 10, 2017 09:44
== END 2017-06-10 10:52 | disposition home or self-care (01) | DRG 281 ==
LOC: NEPC 14:35 → NEDA 18:51 → HCIS 22:00
PROVIDERS: ADMIT Hospitalist; ATTEND Hospitalist
DX: I21.4 Non-ST elevation (NSTEMI) myocardial infarction (principal); I82.619 Acute embolism and thrombosis of superficial veins of unspecified upper extremity; I11.0 Hypertensive heart disease with heart failure; I50.9 Heart failure, unspecified; I48.91 Unspecified atrial fibrillation; Z95.3 Presence of xenogenic heart valve; I25.110 Atherosclerotic heart disease of native coronary artery with unstable angina pectoris; Z95.1 Presence of aortocoronary bypass graft; Z95.5 Presence of coronary angioplasty implant and graft; E78.5 Hyperlipidemia, unspecified; I25.2 Old myocardial infarction; R42 Dizziness and giddiness; Z87.891 Personal history of nicotine dependence
CPT/HCPCS: 71046; 71275; 80048; 82550; 83735; 84484; 85025; 85610; 93005; 93926; 93971; Q9967

== ENCOUNTER 2018-03-23 13:29 | Inpatient (IN) ==
--- NOTE | 2018-03-23 14:07 | XR ---
EXAM DATE: 03/23/2018 2:04 PM EST AGE/SEX: 72 years / Male INDICATIONS: Chest pain. CLINICAL DATA: This is the patient's initial encounter. Patient reports that signs and symptoms have been present for 1 day and indicates a pain score of 0/10. MEDICAL/SURGICAL HISTORY: . Hypertension. Congestive heart failure. SURGICAL HISTORY : CABG . COMPARISON: [facility] [place], CHEST PA & LAT, 06/08/2017. . FINDINGS: A single AP view of the chest demonstrates the lungs to be symmetrically aerated without evidence of mass, infiltrate or effusion. Postsurgical changes from prior CABG are noted. Coronary artery stent is noted in place. The cardiomediastinal contours are stable. Osseous structures are intact. CONCLUSION: Stable chest without evidence of acute cardiopulmonary process Status post CABG Status post coronary artery stenting. Electronically signed by: Jenaro Ellsworth MD Board Certified Radiologist 03/23/2018 2:06 PM EST
[2018-03-23 14:15] LABS: Baso % (Auto) 0.4 % (0.0-2.0); Eos # (Auto) 0.1 th/mm3 (0.0-0.4); Eos % (Auto) 2.5 % (0.0-4.0); Lymph # (Auto) 1.5 th/mm3 (1.0-4.8); Lymph % (Auto) 32.7 % (9.0-44.0); Mean Corpuscular HGB Conc 34.8 % (32.0-36.0); Mean Corpuscular Hemoglobin 33.4 pg (27.0-34.0); Mean Corpuscular Volume 96.2 fL (80.0-100.0); Mean Platelet Volume 8.2 fL (7.0-11.0); Mono # (Auto) 0.3 th/mm3 (0.0-0.9); Mono % (Auto) 7.7 % (0.0-8.0); Neut # (Auto) 2.5 th/mm3 (1.8-7.7); Neut % (Auto) 56.7 % (16.0-70.0); Platelet Count 157 th/mm3 (150-450); Red Blood Count 4.78 mil/mm3 (4.50-5.90); White Blood Count 4.4 th/mm3 (4.0-11.0)
[2018-03-23 14:37] LABS: Alanine Aminotransferase 56 U/L (12-78); Albumin 4.3 g/dL (3.4-5.0); Anion Gap 10 meq/L (5-15); Aspartate Aminotransferase 27 U/L (15-37); Blood Urea Nitrogen 17 mg/dL (7-18); Calcium 8.8 mg/dL (8.5-10.1); Carbon Dioxide 26.7 meq/L (21.0-32.0); Chloride 103 meq/L (98-107); Glomerular Filtration Rate 68 mL/min (>89); Glucose,Random 181 mg/dL (74-106); Potassium 3.6 meq/L (3.5-5.1); Sodium 140 meq/L (136-145)
[2018-03-23 14:41] LABS: Alkaline Phosphatase 81 U/L (45-117); Total Protein 8.3 g/dL (6.4-8.2)
--- NOTE | 2018-03-23 15:44 | ED ---
HPI General Chief complaint: Chest Pain Stated complaint: Medical Time Seen by Provider: 03/23/18 13:38 History of Present Illness HPI narrative: Patient is a 72-year-old male presents emergency department for evaluation of chest pain. Patient states he was lifting a heavy object today when he had sudden onset of pain. States it felt crushing center of his chest radiation down his left shoulder and shortness of breath. This occurred about an hour prior to arrival in the emergency department. He said around took nitroglycerin and did not feel any better she decided to come in to be seen. Patient states he has had a history of CABG stents. He also states that he has a history of angina and he did take the baby aspirin as well as his Imdur prior to arrival when the pain started. Symptoms moderate, gradually improving, associated signs and symptoms and context as above per Related Data Home Medications Medication Instructions Recorded Confirmed aspirin [Aspir-Low] 81 mg PO DAILY 03/23/18 03/23/18 hydrochlorothiazide 12.5 mg PO DAILY 03/23/18 03/23/18 isosorbide mononitrate 60 mg PO BID 03/23/18 03/23/18 metoprolol tartrate 50 mg PO BID 03/23/18 03/23/18 omeprazole 20 mg PO DAILY 03/23/18 03/23/18 prasugrel 10 mg PO DAILY 03/23/18 03/23/18 pravastatin 40 mg PO HS 03/23/18 03/23/18 Allergies Allergy/AdvReac Type Severity Reaction Status Date / Time atorvastatin Allergy Unknown Unverified 11/06/16 13:55 clopidogrel Allergy Unknown Unverified 11/06/16 13:55 simvastatin Allergy Unknown Unverified 11/06/16 13:55 Review of Systems ROS: all other systems reviewed are negative PMFSH Medical History Medical History CHF (congestive heart failure) (Acute) HTN (hypertension) (Acute) Surgical History Surgical History S/P CABG x 2 (Acute) Stented coronary artery (Acute) Social History Social History Substance History: No History of Abuse Smoking Status: Former smoker How Often Do You Have a Drink Containing Alcohol: Monthly or less Recent Travel in [facility] within the Last 8 Weeks: No Recent Out of Country Travel within the Last 8 Weeks: No Immunization History Tetanus Immunization: Unsure Exam Narrative Exam Narrative: GENERAL: Well-developed well-nourished quite pleasant, appears to be in no obvious distress and comfortable SKIN: Focused skin assessment warm/dry. HEAD: Atraumatic. Normocephalic. EYES: Pupils equal and round. No scleral icterus. No injection or drainage. ENT: No nasal bleeding or discharge. Mucous membranes pink and moist. NECK: Trachea midline. No JVD. CARDIOVASCULAR: Regular rate and rhythm. No murmur appreciated. 2+ bilaterally equal pulses in all 4 extremities. RESPIRATORY: No accessory muscle use. Clear to auscultation. Breath sounds equal bilaterally. GASTROINTESTINAL: Abdomen soft, non-tender, nondistended. Hepatic and splenic margins not palpable. MUSCULOSKELETAL: No obvious deformities. No clubbing. No cyanosis. No edema. NEUROLOGICAL: Awake and alert. No obvious cranial nerve deficits. Motor grossly within normal limits. Normal speech. PSYCHIATRIC: Appropriate mood and affect; insight and judgment normal. Course Initial Documented Vital Signs Temperature 98.2 F 03/23/18 13:31 Pulse Rate 117 H 03/23/18 13:31 Respiratory Rate 20 03/23/18 13:31 Blood Pressure 173/103 H 03/23/18 13:31 Pulse Oximetry 96 03/23/18 13:31 Last Documented Vital Signs Temperature 98.2 F 03/23/18 13:31 Pulse Rate 65 03/23/18 17:29 Respiratory Rate 16 03/23/18 17:29 Blood Pressure 115/66 03/23/18 17:29 Pulse Oximetry 97 03/23/18 17:29 Medical Decision Making MDM Narrative Medical decision making narrative: Patient 72-year-old male presented emergency department with feelings like he was having a heart attack, appeared fairly comfortable on arrival. His EKG did show left bundle branch block with atrial fibrillation and a mildly increased heart rate of 100-110. Without intervention patient spontaneously converted to sinus rhythm. He states he is on anticoagulants. He does have a history of heart valve replacement as well as CABG is followed by Dr. Canchola. Patient was discussed with Dr. canchola and would not cath him based on the findings thus far. Patient's pain is resolved with nitroglycerin he did receive aspirin 81 mg self administered prior to arrival here. An additional aspirin was given up to 324 mg of aspirin. Patient was discussed with Dr. Tavera for admission further diagnostic workup for chest pain with elevated troponin Medical Screen Exam Complete: Yes Emergency Medical Condition: Yes Lab Data Result diagrams: 03/23/18 13:57 12/30/18 13:57 Lab Results 03/23/18 03/23/18 03/23/18 Range/Units 13:57 13:57 16:20 WBC 4.4 (4.0-11.0) th/mm3 RBC 4.78 (4.50-5.90) mil/mm3 Hgb 16.0 (13.0-17.0) gm/dL Hct 46.0 (39.0-51.0) % MCV 96.2 (80.0-100.0) fL MCH 33.4 (27.0-34.0) pg MCHC 34.8 (32.0-36.0) % RDW 13.0 (11.6-17.2) % Plt Count 157 (150-450) th/mm3 MPV 8.2 (7.0-11.0) fL Neut % (Auto) 56.7 (16.0-70.0) % Lymph % (Auto) 32.7 (9.0-44.0) % [place] % (Auto) 7.7 (0.0-8.0) % Eos % (Auto) 2.5 (0.0-4.0) % Baso % (Auto) 0.4 (0.0-2.0) % Neut # (Auto) 2.5 (1.8-7.7) th/mm3 Lymph # (Auto) 1.5 (1.0-4.8) th/mm3 [place] # (Auto) 0.3 (0.0-0.9) th/mm3 Eos # (Auto) 0.1 (0.0-0.4) th/mm3 Baso # (Auto) 0.0 (0.0-0.2) th/mm3 WBC Differential . Differential Comment Auto diff final PT (9.8-11.6) sec INR Ratio APTT (23.4-31.7) sec Sodium 140 (136-145) meq/L Potassium 3.6 (3.5-5.1) meq/L Chloride 103 (98-107) meq/L Carbon Dioxide 26.7 (21.0-32.0) meq/L Anion Gap 10 (5-15) meq/L BUN 17 (7-18) mg/dL Creatinine 1.07 (0.60-1.30) mg/dL Estimated GFR 68 L (>89) mL/min Random Glucose 181 H (74-106) mg/dL Calcium 8.8 (8.5-10.1) mg/dL Total Bilirubin 0.7 (0.2-1.0) mg/dL AST 27 (15-37) U/L ALT 56 (12-78) U/L Alkaline Phosphatase 81 (45-117) U/L Total Creatine Kinase 62 (39-308) U/L Troponin I Less than 0.02 L Less than 0.02 L (0.02-0.05) ng/mL Total Protein 8.3 H (6.4-8.2) g/dL Albumin 4.3 (3.4-5.0) g/dL 03/23/18 Range/Units 16:45 WBC (4.0-11.0) th/mm3 RBC (4.50-5.90) mil/mm3 Hgb (13.0-17.0) gm/dL Hct (39.0-51.0) % MCV (80.0-100.0) fL MCH (27.0-34.0) pg MCHC (32.0-36.0) % RDW (11.6-17.2) % Plt Count (150-450) th/mm3 MPV (7.0-11.0) fL Neut % (Auto) (16.0-70.0) % Lymph % (Auto) (9.0-44.0) % [place] % (Auto) (0.0-8.0) % Eos % (Auto) (0.0-4.0) % Baso % (Auto) (0.0-2.0) % Neut # (Auto) (1.8-7.7) th/mm3 Lymph # (Auto) (1.0-4.8) th/mm3 [place] # (Auto) (0.0-0.9) th/mm3 Eos # (Auto) (0.0-0.4) th/mm3 Baso # (Auto) (0.0-0.2) th/mm3 WBC Differential Differential Comment PT 10.8 (9.8-11.6) sec INR 1.1 Ratio APTT 27.4 (23.4-31.7) sec Sodium (136-145) meq/L Potassium (3.5-5.1) meq/L Chloride (98-107) meq/L Carbon Dioxide (21.0-32.0) meq/L Anion Gap (5-15) meq/L BUN (7-18) mg/dL Creatinine (0.60-1.30) mg/dL Estimated GFR (>89) mL/min Random Glucose (74-106) mg/dL Calcium (8.5-10.1) mg/dL Total Bilirubin (0.2-1.0) mg/dL AST (15-37) U/L ALT (12-78) U/L Alkaline Phosphatase (45-117) U/L Total Creatine Kinase (39-308) U/L Troponin I (0.02-0.05) ng/mL Total Protein (6.4-8.2) g/dL Albumin (3.4-5.0) g/dL Imaging Data Radiologist's impression: Chest X-Ray 03/23/18 13:45 CONCLUSION: Stable chest without evidence of acute cardiopulmonary process Status post CABG Status post coronary artery stenting. Discharge Plan Discharge Disposition Patient Disposition: ED Admit(ED Internal Use Only) Discharge Order Discharge Orders: ED Use Only Admit Order (Routine); Ordered 03/23/18 Ordered By: Warren Avelar Physicians Team ED Provider: Warren Avelar Primary Care Provider: Diallo Ocampo Attending Provider: Audie Tavera Other Providers: Blane Canchola Interventions Interventions: ED Discharge Assessment Last Done: 03/23/18 17:34 Status ED Status: Admitted Patient
[2018-03-23] MEDS ORDERED: Acetaminophen 325 MG Tablet PO PRN (15:56)
--- NOTE | 2018-03-23 16:15 | P.HPIM ---
History of Present Illness Primary Care Physician: Diallo Ocampo Chief Complaint: Chest pain History of Present Illness: Mr. Gonzales is a pleasant 72 y/o WM with CAD s/p CABG x 3 in 1997, unstable angina, hx of aortic valve replacement with bioprosthetic valve and previous stenting. Patient previously was hospitalized twice in May 2017 and had a LHC 06/03/17 with 2 MAKAYLA to SVG/RCA but he continued to have chest pain and was taken for a second LHC on 06/04/17 with PCI SVG-OM, 2 additional stents placed with Dr Garces. Pt reports that he had been doing well and was on Eliquis until 6 weeks ago when he developed a large hematoma on his right leg. He states that he was taken off the Eliquis and continued on Parsugrel 10mg daily. He reports that after stopping the Eliquis he noted some intermittent anginal chest pain. Then today he was taking out the garbage and reports that he starting having severe mid sternal chest pain that radiated to his neck and arm. He states that he was unable to even ambulate back into the house because the pain was so severe. He states that this pain is very similar to chest pain he has had in the past with his heart attacks. Pt took ASA 81mg at home prior to arrival in the ED. His EKG in the ED noted a left bundle branch block with atrial fibrillation and a mildly increased heart rate of 100-110. Pt spontaneously converted to sinus rhythm in the ED. He received SL nitroglycerin and an additional aspirin was given up to 324 mg of aspirin in the ED. Currently pt is in the ED and his chest pain has resolved. His initial troponin I was less than 0.02. His English Composition Teacher, Dr. Garces, was contacted by the ED physician and pt is being admitted for trending his CE and Cardiology consultation. He denies any SOB, palpitations, dizziness, nausea/vomiting, abdominal pain, diarrhea or constipation. Past Medical History CAD with hx of OK Hx of aortic valve stenosis Unstable angina Prediabetes HTN Hyperlipidemia Dysphagia ?strictures 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 Past Surgical History C 06/03/17 with 2 makayla to svg/rca a second LHC 06/04/17 with PCI SVG-OM, 2 additional stents CABG x 3 in 1997 AVR with bioprosthetic valve in 2008 Tonsillectomy at age 1 Hx of EGD with dilation Family History Father from CAD/OK Brother with hx of CAD Mother with hx of lung cancer Social History Pt with remote hx of tobacco use, quit smoking in 1965 Denies any alcohol use Pt is and lives locally Diagnosis (1) Chest pain: (2) CAD (coronary artery disease): Inpatient Certification Inpatient Certification: I certify that the inpatient services were ordered in accordance with Medicare regulations governing the order. This includes certification that hospital inpatient services are reasonable and necessary and in the case of services not specified as inpatient-only under 42 CFR 419.22(n), that they are appropriately provided as inpatient services in accordance to with the 2-midnight benchmark under 43 CFR 412.3(e) Estimated Total Length of Stay (Days): 3 Plans for Post Hospital Care: Home Medications and Allergies Allergies Allergy/AdvReac Type Severity Reaction Status Date / Time atorvastatin Allergy Unknown Unverified 11/06/16 13:55 clopidogrel Allergy Unknown Unverified 11/06/16 13:55 simvastatin Allergy Unknown Unverified 11/06/16 13:55 Home Medications Medication Instructions Recorded Confirmed Type aspirin [Aspir-Low] 81 mg PO DAILY 03/23/18 03/23/18 History hydrochlorothiazide 12.5 mg PO DAILY 03/23/18 03/23/18 History isosorbide mononitrate 60 mg PO BID 03/23/18 03/23/18 History metoprolol tartrate 50 mg PO BID 03/23/18 03/23/18 History omeprazole 20 mg PO DAILY 03/23/18 03/23/18 History prasugrel 10 mg PO DAILY 03/23/18 03/23/18 History pravastatin 40 mg PO HS 03/23/18 03/23/18 History Active Medications: Active Medications Acetaminophen (Tylenol) 650 mg PO Q4H PRN PRN Reason: Temp > 100.4 Al Hydroxide/Mg Hydroxide (Milk Of Magnesia Liq) 30 ml PO Q12H PRN PRN Reason: Mild Constipation Isosorbide Mononitrate (Imdur) 60 mg PO BID [place] Metoprolol Tartrate (Lopressor) 50 mg PO BID [place] Non-Formulary Medication (Omeprazole [Omeprazole]) 20 mg PO DAILY [facility] Ondansetron HCl (Zofran Inj) 4 mg IV.PUSH Q6H PRN PRN Reason: NAUSEA OR VOMITING Pravastatin Sodium (Pravachol) 40 mg PO HS [place] Senna/Docusate Sodium (Maty-Colace) 1 tab PO BID [place] Sodium Chloride (Ns Flush) 2 ml IV.FLUSH UNSCH PRN PRN Reason: FLUSH AFTER USING IV ACCESS Sodium Chloride (Ns Flush) 2 ml IV.FLUSH BID [place] Sodium Chloride (Ns Flush) 2 ml IV.FLUSH PRN PRN PRN Reason: FLUSH AFTER USING IV ACCESS Physical Exam Vital signs: Last Vital Signs Temp 98.2 F 03/23/18 13:31 Pulse 71 03/23/18 15:22 Resp 16 03/23/18 15:22 BP 125/76 03/23/18 15:22 Pulse Ox 96 03/23/18 15:22 Narrative: GENERAL: NAD, AAOx3 SKIN: Warm and dry. HEENT: Atraumatic. Normocephalic. Pupils equal and round. No scleral icterus. No injection or drainage. No nasal bleeding or discharge. Mucous membranes pink and moist. NECK: Trachea midline. No JVD. CARDIO: Regular rate and rhythm. RESP: No accessory muscle use. Clear to auscultation. Breath sounds equal bilaterally. ABD: Abdomen soft, non-tender, nondistended. Hepatic and splenic margins not palpable. EXT: Extremities without clubbing, cyanosis, or edema. No obvious deformities. NEURO: Awake and alert. No obvious cranial nerve deficits. Motor grossly within normal limits. Five out of 5 muscle strength in the arms and legs. Normal speech. PSYCH: Appropriate mood and affect; insight and judgment normal. Results Labs CBC & Chem 7: 03/23/18 13:57 03/23/18 13:57 Imaging Chest X-Ray 03/23/18 13:45 CONCLUSION: Stable chest without evidence of acute cardiopulmonary process Status post CABG Status post coronary artery stenting. Caprini VTE Risk Assessment Caprini VTE Risk Assessment: Moderate/High Risk (score >= 2) Caprini Risk Assessment Model: Point Value = 1 Point Value = 2 Point Value = 3 Point Value = 5 Age 41-60 Minor surgery BMI > 25 kg/m2 Swollen legs Varicose veins or History of unexplained or recurrent spontaneous Oral contraceptives or hormone replacement Sepsis (< 1 month) Serious lung disease, including pneumonia (< 1 month) Abnormal pulmonary function Acute myocardial infarction Congestive heart failure (< 1 month) History of inflammatory bowel disease Medical patient at bed rest Age 61-74 Arthroscopic surgery Major open surgery (> 45 min) Laparoscopic surgery (> 45 min) Malignancy Confined to bed (> 72 hours) Immobilizing plaster cast Central venous access Age >= 75 History of VTE Family history of VTE Factor V Leiden Prothrombin [id number] Lupus anticoagulant Anticardiolipin antibodies Elevated serum homocysteine Heparin-induced thrombocytopenia Other congenital or acquired thrombophilia Stroke (< 1 month) Elective arthroplasty Hip, pelvis, or leg fracture Acute spinal cord injury (< 1 month) Prophylaxis Regimen: Total Risk Factor Score Risk Level Prophylaxis Regimen 0-1 Low Early ambulation 2 Moderate Order ONE of the following: *Sequential Compression Device (SCD) *Heparin 5000 units SQ BID 3-4 Higher Order ONE of the following medications: *Heparin 5000 units SQ TID *Enoxaparin/Lovenox 40 mg SQ daily (WT < 150 kg, CrCl > 30 mL/min) *Enoxaparin/Lovenox 30 mg SQ daily (WT < 150 kg, CrCl > 10-29 mL/min) *Enoxaparin/Lovenox 30 mg SQ BID (WT < 150 kg, CrCl > 30 mL/min) AND/OR *Sequential Compression Device (SCD) 5 or more Highest Order ONE of the following medications: *Heparin 5000 units SQ TID (Preferred with Epidurals) *Enoxaparin/Lovenox 40 mg SQ daily (WT < 150 kg, CrCl > 30 mL/min) *Enoxaparin/Lovenox 30 mg SQ daily (WT < 150 kg, CrCl > 10-29 mL/min) *Enoxaparin/Lovenox 30 mg SQ BID (WT < 150 kg, CrCl > 30 mL/min) AND *Sequential Compression Device (SCD) Assessment and Plan Assessment (1) Chest pain: Code(s): R07.9 - Chest pain, unspecified Status: Acute (2) CAD (coronary artery disease): Code(s): I25.10 - Atherosclerotic heart disease of [place] coronary artery without angina pectoris Status: Chronic Plan Chest pain CAD with hx of OK HTN Hyperlipidemia - Pt is a 72 y/o WM with CAD s/p CABG x 3 in 1997, unstable angina, hx of aortic valve replacement with bioprosthetic valve and previous stenting. Patient previously was hospitalized in May 2017 and had a C 06/03/17 with 2 MAKAYLA to SVG/RCA but he continued to have chest pain and was taken for a second [facility] on 06/04/17 with PCI SVG-OM, 2 additional stents placed with Dr Garces. Pt reports that he had been doing well and was on Eliquis until 6 weeks ago when he developed a large hematoma on his right leg. He states that he was taken off the Eliquis and continued on Parsugrel 10mg daily. He reports that after stopping the Eliquis he noted some intermittent anginal chest pain. Then today he was taking out the garbage and reports that he starting having severe mid sternal chest pain that radiated to his neck and arm. He states that he was unable to even ambulate back into the house because the pain was so severe. Pt took ASA 81mg at home prior to arrival in the ED. - His EKG in the ED noted a left bundle branch block with atrial fibrillation and a mildly increased heart rate of 100-110. Pt spontaneously converted to sinus rhythm in the ED. - He received SL nitroglycerin and an additional aspirin was given up to 324 mg of aspirin in the ED. - Currently pt is in the ED and his chest pain has resolved. His repeat EKG noted improvement in the A. fib to NSR and the LBBB is no longer noted. - His initial troponin I was less than 0.02. - Serial CE and EKGs - His English Composition Teacher, Dr. Garces, was contacted by the ED physician and Cardiology consultation is placed - Case discussed with Dr. Garces and he is in agreement with Heparin gtt given his initial EKG findings and his history of CAD - Home meds resumed, including Imdur 60mg BID, Metoprolol 50mg BID, ASA, Statin , Effient 10mg daily - Keep pt on telemetry - Supportive care - DVT prophylaxis with SCDs
[2018-03-23] MEDS ORDERED: Heparin Drip 25,000 UNIT/250 ML BAG IV.CONT PRN (16:21)
--- NOTE | 2018-03-23 16:26 | ECG ---
Date Performed: 03/23/2018 Time Performed: 13:31:33 PTAGE: 72 years EKG: ATRIAL FIBRILLATION WITH RAPID VENTRICULAR RESPONSE LEFT BUNDLE BRANCH BLOCK ABNORMAL ECG NO PREVIOUS TRACING DOCTOR: Ranulfo Milan Interpretating Date/Time 03/23/2018 16:26:20
[2018-03-23 16:51] LABS: Creatine Kinase 62 U/L (39-308)
[2018-03-23 17:08] LABS: Activated Partial Thrombo Time 27.4 sec (23.4-31.7); INR 1.1 Ratio; Prothrombin Time 10.8 sec (9.8-11.6)
--- NOTE | 2018-03-23 20:41 | ECG ---
Date Performed: 03/23/2018 Time Performed: 16:09:14 PTAGE: 72 years EKG: Sinus rhythm WITH FIRST DEGREE AV BLOCK INFERIOR MYOCARDIAL INFARCTION ABNORMAL ECG PREVIOUS TRACING : 03/23/2018 13.31 Compared to previous tracing, sinus rhythm has replaced atr ial fibrillation, left bundle branch block is no longer present. DOCTOR: Ranulfo Milan Interpretating Date/Time 03/23/2018 20:39:29
[2018-03-23] MEDS ORDERED: Heparin 10,000 UNITS/10 ML Vial (for IV use) IV.PUSH PRN ×2 (22:23)
[2018-03-23] MEDS: Isosorbide Mononitrate 60 MG ER 24HR Tablet (Imdur) PO SCH (22:27)
[2018-03-23] MEDS: Metoprolol Tartrate 50 MG Tablet PO SCH (22:27)
[2018-03-23] MEDS: Senna/Docusate Sodium 8.6/50 MG Tablet PO SCH (22:28)
--- NOTE | 2018-03-23 22:58 | ECG ---
Date Performed: 03/23/2018 Time Performed: 22:10:15 PTAGE: 72 years EKG: Sinus rhythm WITH FIRST DEGREE AV BLOCK NONSPECIFIC INTRAVENTRICULAR CONDUCTION DELAY NONSPECIFIC ST/T-WAVE ABNOR MALITY ABNORMAL ECG PREVIOUS TRACING : 03/23/2018 16.09 No significant change from previous tracing noted. DOCTOR: Ranulfo Milan Interpretating Date/Time 03/23/2018 22:57:20
[2018-03-23 23:55] LABS: Troponin I 0.04 ng/mL (0.02-0.05)
[2018-03-24 06:54] LABS: Baso % (Auto) 0.6 % (0.0-2.0); Eos # (Auto) 0.2 th/mm3 (0.0-0.4); Eos % (Auto) 4.9 % (0.0-4.0); Hematocrit 42.8 % (39.0-51.0); Hemoglobin 14.9 gm/dL (13.0-17.0); Lymph # (Auto) 1.6 th/mm3 (1.0-4.8); Lymph % (Auto) 32.6 % (9.0-44.0); Mean Corpuscular HGB Conc 34.9 % (32.0-36.0); Mean Corpuscular Hemoglobin 33.4 pg (27.0-34.0); Mean Corpuscular Volume 95.7 fL (80.0-100.0); Mean Platelet Volume 7.9 fL (7.0-11.0); Mono # (Auto) 0.4 th/mm3 (0.0-0.9); Mono % (Auto) 8.3 % (0.0-8.0); Neut # (Auto) 2.6 th/mm3 (1.8-7.7); Neut % (Auto) 53.6 % (16.0-70.0); Platelet Count 157 th/mm3 (150-450); Red Blood Count 4.47 mil/mm3 (4.50-5.90); Red Cell Distribution Width 13.2 % (11.6-17.2); White Blood Count 4.9 th/mm3 (4.0-11.0)
[2018-03-24 07:13] LABS: Alanine Aminotransferase 48 U/L (12-78); Albumin 3.6 g/dL (3.4-5.0); Alkaline Phosphatase 64 U/L (45-117); Anion Gap 11 meq/L (5-15); Aspartate Aminotransferase 30 U/L (15-37); Blood Urea Nitrogen 17 mg/dL (7-18); Calcium 8.9 mg/dL (8.5-10.1); Carbon Dioxide 26.8 meq/L (21.0-32.0); Chloride 105 meq/L (98-107); Glomerular Filtration Rate Greater Than 89 mL/min (>89); Glucose,Random 104 mg/dL (74-106); Potassium 3.6 meq/L (3.5-5.1); Sodium 143 meq/L (136-145)
--- NOTE | 2018-03-24 07:49 | P.CONCA ---
History of Present Illness Primary Care Provider: Diallo Ocampo Chief Complaint: Chest pain History of Present Illness: Pleasant 72 y/o WM with CAD s/p CABG x 3 in 1997, chronic angina, hx of aortic valve replacement with bioprosthetic valve, paroxysmal A. fib, HTN, HLD, GERD. Patient previously was hospitalized twice in May 2017 and had a LHC 06/03/17 with 2 MELONIE to SVG/RCA but he continued to have chest pain and was taken for a second [facility] on 06/04/17 with PCI SVG-OM. Approximately 6 weeks ago was taken off of Eliquis due to large thigh hematoma and was continued on aspirin and Prasugrel. The patient reports that he has had chronic stable angina for some time. He describes getting midsternal chest tightness with lifting heavy objects and walking that is relieved with rest normally in about 1 minute. The patient states that for the past few weeks he has been getting similar chest discomfort but now at rest. Yesterday, the patient was taking the trash out and walking across the yard and developed severe substernal chest tightness that did not relieved with rest. He had just got home [facility] and had not taken his morning meds yet so he took his morning meds but the chest discomfort still persisted for about 15-30 minutes, he came to the ED for evaluation. Initial EKG with A. fib rate 120, spontaneously converted to NSR in the ED has remained in NSR on review of telemetry overnight. He denies any palpitations. Heparin gtt. started. Follow-up EKGs with nonspecific T wave changes. Troponin normal x3. Review of Systems All other systems reviewed negative except as stated in HPI PMFSH - History History Provided By: Patient, Medical Record - Medical History Medical History: Medical History (Last Updated 03/24/18 @ 07:40 by JUAN Quigley) CAD (coronary artery disease) CHF (congestive heart failure) HTN (hypertension) Paroxysmal atrial fibrillation - Surgical History Surgical History: Surgical History (Last Updated 03/24/18 @ 07:41 by JUAN Quigley) H/O aortic valve replacement S/P CABG x 2 Stented coronary artery - Tobacco History Second Hand Smoke Exposure: No Tobacco Use In Past 30 Days: No Smoking Status: Former smoker Tobacco Type: Cigarettes, Pipe, Cigars - Alcohol History How Often Do You Have a Drink Containing Alcohol: 2 to 3 times a week - Substance Use History Substance History: No History of Abuse - Travel History Recent Travel in the [place] Within the Last 8 Weeks: Yes Recent Travel Out of the Country Within the Last 8 Weeks: No - Immunization History Tetanus Immunization: Unsure Hx Influenza Vaccine This Season: Yes Medications and Allergies Allergies Allergy/AdvReac Type Severity Reaction Status Date / Time atorvastatin Allergy Unknown Unverified 11/06/16 13:55 clopidogrel Allergy Unknown Unverified 11/06/16 13:55 simvastatin Allergy Unknown Unverified 11/06/16 13:55 Home Medications Medication Instructions Recorded Confirmed Type aspirin [Aspir-Low] 81 mg PO DAILY 03/23/18 03/23/18 History hydrochlorothiazide 12.5 mg PO DAILY 03/23/18 03/23/18 History isosorbide mononitrate 60 mg PO BID 03/23/18 03/23/18 History metoprolol tartrate 50 mg PO BID 03/23/18 03/23/18 History omeprazole 20 mg PO DAILY 03/23/18 03/23/18 History prasugrel 10 mg PO DAILY 03/23/18 03/23/18 History pravastatin 40 mg PO HS 03/23/18 03/23/18 History Active Medications: Active Medications Acetaminophen (Tylenol) 650 mg PO Q4H PRN PRN Reason: Temp > 100.4 Al Hydroxide/Mg Hydroxide (Milk Of Magncorey Liq) 30 ml PO Q12H PRN PRN Reason: Mild Constipation Aspirin (Ecotrin) 81 mg PO DAILY [facility] Heparin Sodium (Porcine) (Heparin Inj) 2,500 units IV.PUSH UNSCH PRN PRN Reason: aPTT 25-39 Last Admin: 03/23/18 23:55 Dose: 2,500 units Heparin Sodium (Porcine) (Heparin Inj) 5,000 units IV.PUSH UNSCH PRN PRN Reason: aPTT < 25 Heparin Sodium/Dextrose (Heparin/D5w 25,000 U/250 Ml) 25,000 unit in 250 mls @ 0 mls/hr IV.CONT TITRATE PRN; Protocol PRN Reason: Per Protocol Last Titration: 03/24/18 07:04 Dose: 1,000 units/hr, 10 mls/hr Isosorbide Mononitrate (Imdur) 60 mg PO BID [facility] Last Admin: 03/23/18 22:27 Dose: 60 mg Metoprolol Tartrate (Lopressor) 50 mg PO BID [facility] Last Admin: 03/23/18 22:27 Dose: 50 mg Non-Formulary Medication (Omeprazole [Omeprazole]) 20 mg PO DAILY [facility] Non-Formulary Medication (Hydrochlorothiazide [Hydrochlorothiazide]) 12.5 mg PO DAILY [facility] Ondansetron HCl (Zofran Inj) 4 mg IV.PUSH Q6H PRN PRN Reason: NAUSEA OR VOMITING Prasugrel (Effient) 10 mg PO DAILY [facility] Pravastatin Sodium (Pravachol) 40 mg PO HS [facility] Last Admin: 03/23/18 22:28 Dose: 40 mg Senna/Docusate Sodium (Maty-Colace) 1 tab PO BID [facility] Last Admin: 03/23/18 22:28 Dose: Not Given Sodium Chloride (Ns Flush) 2 ml IV.FLUSH UNSCH PRN PRN Reason: FLUSH AFTER USING IV ACCESS Sodium Chloride (Ns Flush) 2 ml IV.FLUSH BID [facility] Last Admin: 03/23/18 22:28 Dose: Not Given Sodium Chloride (Ns Flush) 2 ml IV.FLUSH PRN PRN PRN Reason: FLUSH AFTER USING IV ACCESS Exam Vital signs: Vital Signs 03/23/18 13:31 03/23/18 13:53 03/23/18 15:05 Temperature 98.2 F Pulse Rate 117 H 103 H Respiratory Rate 20 17 Blood Pressure 173/103 H 134/104 H Pulse Oximetry 96 96 96 03/23/18 15:22 03/23/18 17:29 03/23/18 20:15 Temperature 97.9 F Pulse Rate 71 65 65 Respiratory Rate 16 16 18 Blood Pressure 125/76 115/66 129/63 Pulse Oximetry 96 97 94 L 03/24/18 00:00 03/24/18 04:00 Temperature 97.7 F 97.6 F Pulse Rate 59 L 65 Respiratory Rate 18 18 Blood Pressure 119/57 L 119/63 Pulse Oximetry 95 97 Intake & Output 03/23/18 03/24/18 03/24/18 18:59 06:59 18:59 Weight 170 lb 170 lb 0.01 oz Other: # Voids 2 Date of Last Bowel Movement 03/23/18 # Bowel Movements 1 Weight On Admission 374 lb 12.573 oz Narrative: GENERAL: Well-developed well-nourished. In no acute distress. NECK: No carotid bruits. No JVD. CARDIOVASCULAR: Regular rate and rhythm. No murmur appreciated. RESPIRATORY: No accessory muscle use. Clear to auscultation. Breath sounds equal bilaterally. MUSCULOSKELETAL: No clubbing or cyanosis. No edema. NEUROLOGICAL: Awake and alert. Normal speech. Results 03/24/18 06:22 03/24/18 06:22 Cardiac Enzymes 03/23/18 03/23/18 03/23/18 Range/Units 13:57 16:20 22:43 AST 27 (15-37) U/L Troponin I Less than 0.02 L Less than 0.02 L 0.04 (0.02-0.05) ng/mL 03/24/18 Range/Units 06:22 AST 30 (15-37) U/L Troponin I (0.02-0.05) ng/mL Coagulation 03/23/18 03/23/18 03/24/18 Range/Units 16:45 22:35 06:22 PT 10.8 (9.8-11.6) sec APTT 27.4 37.9 H D 50.2 H D (23.4-31.7) sec CBC 03/23/18 03/24/18 Range/Units 13:57 06:22 WBC 4.4 4.9 (4.0-11.0) th/mm3 RBC 4.78 4.47 L (4.50-5.90) mil/mm3 Hgb 16.0 14.9 (13.0-17.0) gm/dL Hct 46.0 42.8 (39.0-51.0) % Plt Count 157 157 (150-450) th/mm3 Neut # (Auto) 2.5 2.6 (1.8-7.7) th/mm3 Lymph # (Auto) 1.5 1.6 (1.0-4.8) th/mm3 Labette # (Auto) 0.3 0.4 (0.0-0.9) th/mm3 Eos # (Auto) 0.1 0.2 (0.0-0.4) th/mm3 Baso # (Auto) 0.0 0.0 (0.0-0.2) th/mm3 Comprehensive Metabolic Panel 03/23/18 03/24/18 Range/Units 13:57 06:22 Sodium 140 143 (136-145) meq/L Potassium 3.6 3.6 (3.5-5.1) meq/L Chloride 103 105 (98-107) meq/L Carbon Dioxide 26.7 26.8 (21.0-32.0) meq/L BUN 17 17 (7-18) mg/dL Creatinine 1.07 0.79 (0.60-1.30) mg/dL Calcium 8.8 8.9 (8.5-10.1) mg/dL AST 27 30 (15-37) U/L ALT 56 48 (12-78) U/L Alkaline Phosphatase 81 64 (45-117) U/L Total Protein 8.3 H 7.0 D (6.4-8.2) g/dL Albumin 4.3 3.6 D (3.4-5.0) g/dL Intake and Output 03/23/18 03/24/18 03/24/18 22:59 06:59 14:59 Other: # Voids 2 Date of Last Bowel Movement 03/23/18 # Bowel Movements 1 Weight 170 lb 170 lb 0.01 oz Weight On Admission 374 lb 12.573 oz - Imaging and Cardiology Imaging: Impressions Chest X-Ray 03/23/18 13:45 CONCLUSION: Stable chest without evidence of acute cardiopulmonary process Status post CABG Status post coronary artery stenting. Assessment and Plan - Plan 72 y/o WM with CAD s/p CABG x 3 in 1997, chronic angina, hx of aortic valve replacement with bioprosthetic valve, paroxysmal A. fib, HTN, HLD, GERD who presented for chest pain. Chest pain: Symptoms concerning for unstable angina. N.p.o. for left heart cath today. Continue heparin GTT for now. Continue aspirin, Effient, Imdur, metoprolol, statin. Discussed Condition With: Patient with family at bedside, Dr. Garces - Attending Attestation Unstable angina status post percutaneous coronary intervention to saphenous vein graft to the obtuse marginal branch secondary to in-stent restenosis If no postprocedural complications, discharge later today. Follow-up in outpatient setting. Continue current medical regimen aspirin, statin, beta-jenny, and long-acting nitrate.
[2018-03-24] MEDS: Metoprolol Tartrate 50 MG Tablet PO SCH (08:35)
[2018-03-24] MEDS: Isosorbide Mononitrate 60 MG ER 24HR Tablet (Imdur) PO SCH (08:55)
[2018-03-24] MEDS: Senna/Docusate Sodium 8.6/50 MG Tablet PO SCH (08:55)
[2018-03-24] MEDS ORDERED: Non-Formulary Drug (Hydrochlorothiazide [Hydrochlorothiazide] 12.5 MG) PO SCH (09:00)
[2018-03-24] MEDS ORDERED: hydroCHLOROthiazide 25 MG Tablet PO SCH (09:00)
[2018-03-24] MEDS ORDERED: Pantoprazole Sodium 20 MG DR Tablet PO SCH (09:00)
--- NOTE | 2018-03-24 10:43 | P.PNIM ---
Subjective Interval history: Pt denies chest pain or heaviness today. Physical Exam Vital signs: Last Vital Signs Temp 97.5 F L 03/24/18 08:00 Pulse 57 L 03/24/18 08:00 Resp 20 03/24/18 08:00 BP 135/78 03/24/18 08:00 Pulse Ox 95 03/24/18 08:00 Narrative: GENERAL: NAD, AAOx3 SKIN: Warm and dry. HEENT: Atraumatic. Normocephalic. Pupils equal and round. No scleral icterus. No injection or drainage. No nasal bleeding or discharge. Mucous membranes pink and moist. NECK: Trachea midline. No JVD. CARDIO: Regular rate and rhythm. RESP: No accessory muscle use. Clear to auscultation. Breath sounds equal bilaterally. ABD: Abdomen soft, non-tender, nondistended. Hepatic and splenic margins not palpable. EXT: Extremities without clubbing, cyanosis, or edema. No obvious deformities. NEURO: Awake and alert. No obvious cranial nerve deficits. Motor grossly within normal limits. Five out of 5 muscle strength in the arms and legs. Normal speech. PSYCH: Appropriate mood and affect; insight and judgment normal. Results Labs CBC & Chem 7: 03/24/18 06:22 03/24/18 06:22 Assessment and Plan Assessment (1) Chest pain: Code(s): R07.9 - Chest pain, unspecified Status: Acute (2) CAD (coronary artery disease): Code(s): I25.10 - Atherosclerotic heart disease of false pass coronary artery without angina pectoris Status: Chronic Plan Chest pain CAD with hx of ID HTN Hyperlipidemia - Pt is a 72 y/o WM with CAD s/p CABG x 3 in 1997, unstable angina, hx of aortic valve replacement with bioprosthetic valve and previous stenting. Patient previously was hospitalized in May 2017 and had a LHC 06/03/17 with 2 MELONIE to SVG/RCA but he continued to have chest pain and was taken for a second LHC on 06/04/17 with PCI SVG-OM, 2 additional stents placed with Dr Garces. Pt reports that he had been doing well and was on Eliquis until 6 weeks ago when he developed a large hematoma on his right leg. He states that he was taken off the Eliquis and continued on Parsugrel 10mg daily. He reports that after stopping the Eliquis he noted some intermittent anginal chest pain. Then today he was taking out the garbage and reports that he starting having severe mid sternal chest pain that radiated to his neck and arm. He states that he was unable to even ambulate back into the house because the pain was so severe. Pt took ASA 81mg at home prior to arrival in the ED. - His EKG in the ED noted a left bundle branch block with atrial fibrillation and a mildly increased heart rate of 100-110. Pt spontaneously converted to sinus rhythm in the ED. - He received SL nitroglycerin and an additional aspirin was given up to 324 mg of aspirin in the ED. - repeat EKG noted improvement in the A. fib to NSR and the LBBB is no longer noted. - serial troponins: <0.02, <0.02, 0.4 - serial EKGs did NOT show acute ischemic changes - Pt seen by Cardiology this AM. Dr. Garces will proceed with [facility]. - IV heparin - Home meds resumed, including Imdur 60mg BID, Metoprolol 50mg BID, ASA, Statin , Effient 10mg daily - telemetry - Supportive care - anticiapte d/c to home in 1-2 days - DVT prophylaxis with SCDs Progress Note: Quality VTE Deep Vein Thrombosis/Pulmonary Embolism Present on Admission: No
[2018-03-24] MEDS ORDERED: Heparin/NS PF Inj 1,000 ML ONE (12:57)
[2018-03-24] MEDS ORDERED: Heparin 10,000 UNITS/10 ML Vial (for IV use) ONE (12:57)
[2018-03-24] MEDS ORDERED: fentaNYL Citrate Inj 100 MCG/2 ML Ampul ONE (12:57)
[2018-03-24] MEDS ORDERED: Iohexol 350 MG/ML 100 ML Vial (for Cath Lab) IVCONTRAST ONE (14:00)
--- NOTE | 2018-03-24 14:19 | CATHPROC ---
[employer] HIS Report Study Information Study Number Admission Scheduled Start Study Start [id number] Mar 23 2018 3:45PM 03/24/2018 Mar 24 2018 12:39PM [place] Service Cardiac Catheterization Admit Source Facility Department Other [facility] - Media Assistant Physician and Clinical Staff Initial Blane Danielle Senior Quality Technician Alexus Esqeuda,MILVIA Recorder Jessica Subramanian ,RT(R) Scrub Mikki Ceballos,RT(R) Procedures Performed Procedure Location (Site) Vessel Name Coronary Angiograms RCA Right Coronary Coronary Angiograms MCGINNIS-LAD Left Coronary Coronary Angiograms SVG-OM CIRC Drug Eluting Inflatio SVG-OM CIRC L Heart Cath PTCA SVG-OM CIRC Wire insertion Fem Art (right) Femoral Art Equipment Time Front Office Specialist Description Size Mfg Part Number Used/Scraped COPILOT VALVE, BLEEDBACK [id number] 13:37 [employer] Used CONTROL *[id number] TRANSDUCER, TRUWAVE [id number] 12:57 GARNER VELOZ * Used W/STOCKCOCK *[id number] 13:57 [employer], SYNERGY 3.0 X 16MM Used *[id number] 14:03 [employer], SYNERGY 3.5 X 20MM Used *[id number] *[id number] [id number] *[id number] [id number] *[id number] 14:05 DAIG/ST. ABHI[employer] MEDICAL ANGIOSEAL, FR6 VIP FR 6 Used *[id number] 12:57 PanX BLANKET,WARM AIR CCL * Used *[id number] 12:57 PanX PACK, CCL CUSTOM * Used *[id number] 12:57 Medstro PACER PEN, SKIN DUAL W/ RULER * Used *[id number] 13:52 [employer] BALLOON, 3.0 X 20MM EUPHORA 20MM Used *[id number] 13:37 [employer] MEDICAL 30 LG INDEFLATOR Used *[id number] 13:34 [employer] MEDICAL SHEATH, FR6.5 PRELUDE 11CM FR 6.5 038ACT Used *[id number] 12:57 [employer] MEDICAL WIRE, 3MMJ .035 180CM 180CM Used *[id number] 12:57 NAMIC MANIFOLD, 4 PORT * Used *5676825 12:57 [employer] OMNIPAQUE, 350 MG, 150ML 150ML [id number] Used 110-004 13:45 [employer] CATHETER, ELCA 0.9MM X-80 150CM Used *[id number] [id number] 12:57 TERUMO MEDICAL SHEATH, FR5 TERUMO (10CM) FR 5 Used *[id number] WIRE, RUNTHROUGH NS FLOPPY 25-1011 13:37 TERUM[employer] MEDICAL 180CM Used .014 180CM *[id number] 13:58 [employer] CATHETER, FR6 GUIDELINER FR 6 5571 *[id number] Used Equipment Model, Serial, Lot Number and Expiration Data Description Model Number Serial Number Lot Number Expiration Date ANGIOSEAL, FR6 VIP [id number] 09-21-2018 CATHETER, ELCA 0.9MM X-80 [id number] 10-25-2019 STENT, [employer] [id number] 11-13-2019 STENT, [employer] [id number] 06-13-2018 History: Current Medications Medication Dosage/Unit Route Frequency Last Date/Time Taken Imdur LOPRESSOR Statins (any) ASA EFFIENT HCTZ History: Allergies Allergy Reaction simvastatin atorvastatin clopidogrel History: Risk Factors Family History of Hypertension Dyslipidemia Previous SD Previous Heart Failure Premature CAD Yes Yes Yes Yes Yes Prior Valve Prior PCI Prior PCIDate Prior CABG Prior CABGDate Surgery Yes Yes 06/03/2017 Yes 05/23/1997 Cerebrovascular Peripheral Artery Chronic Lung On Dialysis Diabetes Disease Disease Disease No No No No No History: Risk Factors Selection Items Hyperlipidemia History: Symptoms/Diagnosis Selection Items Chest pain History: CV Disease Selection Items Known CAD History: Stress Tests Stress or Imaging Studies Performed Yes Standard Exercise Stress Test No Stress Echo No Stress Test SPECT Stress Test SPECT Result Yes Negative Stress Test CMR No Cardiac CTA Coronary Calcium Score No No History: Other Disease Selection Items CAD HTN History: Other Current Smoker Method Quit Packs a Day Years Used Pack Years No Cigarettes 52 Years Ago 2 1 2 Labs Hgb (g/dl) Hct (%) WBC (l/cumm) Platelets (thousands) 11.60-17.00 35.00-51.00 4.00-11.00 150.00-450.00 14.9 42.8 4.9 157 Glucose (mg/dl) BUN (mg/dl) Creatinine (mg/dl) BUN:Creatinine (1:x) 74.00-106.00 7.00-18.00 0.50-1.30 10.00-20.00 104 17 0.7 24.3 Na (meq/l) K (meq/l) 136.00-145.00 3.50-5.10 143 3.6 INR (PTT:PT) 0.90-1.10 1.1 Troponin I (ng/ml) CPK (u/l) CPK-MB (ng/ML) 0.02-0.05 26.00-308.00 0.50-3.60 0.04 54 Not Drawn Medication Medication Total Dose (Bolus/Oral) Medication Total Dosage/Unit 1% XYLOCAINE 5 mL FENTANYL 100 mcg HEPARIN 5000 units VERSED 3 mg Medications (Bolus/Oral) Medication Time Given Dosage/Unit Administered By Reason VERSED 03/24/2018 1:20:13 PM 2 mg Alexus Esqueda 2 mg VERSED given in lab by Alexus Esqueda RN via Peripheral IV. Ordered by Blane Garces. FENTANYL 03/24/2018 1:21:23 PM 50 mcg Alexus Esqueda 50 mcg FENTANYL given in lab by Alexus Esqueda RN via Peripheral IV. Ordered by Blane Garces. 1% XYLOCAINE 03/24/2018 1:27:16 PM 5 mL Blane Garces 5 mL 1% XYLOCAINE given in lab by Blane Garces in Right Groin via Subcutaneous. Ordered by Ronan Garces. HEPARIN 03/24/2018 1:37:39 PM 5000 units Alexus Esqueda 5000 units HEPARIN given in lab by Alexus Esqueda RN via Peripheral IV. Ordered by Blane Garces. VERSED 03/24/2018 1:45:25 PM 1 mg Alexus Esqueda 1 mg VERSED given in lab by Alexus Esqueda RN via Peripheral IV. Ordered by Blane Garces. FENTANYL 03/24/2018 1:46:26 PM 50 mcg Alexus Esqueda 50 mcg FENTANYL given in lab by Alexus Esqueda RN via Peripheral IV. Ordered by Blane Garces. Medication (Drip) Medication Time Given Dosage/Unit Concentration/Unit Diluent (ml) Solution 03/24/2018 12:54:03 IV Solutions 50 mL (IV) NaCl .9 PM Patient arrived on IV Solutions via Peripheral IV. Pump/Drip Flow using NaCl .9. Initial Case Assessment Cardiovascular HR NIBP Chest Pain 59 134/79 0 Edema Present Skin color Skin None Normal Warm Dry Circulatory - Right Pulses Dorsalis Pedis Femoral 3 3 Scale (0,1,2,3,4,d) Circulatory - Left Pulses Dorsalis Pedis Femoral 3 3 Scale (0,1,2,3,4,d) Neurological State Oriented to time-place- Alert Moves all extremities person Respiration - General Respiration Rate SpO2 (%) (B/min) 20 96 Final Case Assessment Cardiovascular HR NIBP Chest Pain 59 120/70 0 Edema Present Skin color Skin None Normal Warm Dry Circulatory - Right Pulses Dorsalis Pedis Femoral 3 3 Scale (0,1,2,3,4,d) Circulatory - Left Pulses Dorsalis Pedis Femoral 3 3 Scale (0,1,2,3,4,d) Neurological State Oriented to time-place- Alert Moves all extremities person Respiration - General Respiration Rate SpO2 (%) (B/min) 20 96 Chronological Log Time Study Chronological Log 12:47:49 Patient arrived via Bed. 12:47:52 Patient Name, D.O.B, / Armband Verified By R.N. 12:53:56 Consent signed by the physician and the patient and verified by the Media Assistant staff. 12:53:56 Pre-op and post- op instructions given; patient acknowledges understanding of instructions. 12:53:57 Verbal Stimulation=2 Physical Stimulation=2 Airway=2 Respiration=2 TOTAL=8. (0=absent, 1=li mited, 2=present) 12:53:58 Patient has been NPO for More than 6Hrs. 12:53:59 Skin Breakdown- none per patient 12:54:00 Patient Warmer Placed on the Table. 12:54:02 Mikael Prominences Protected 12:54:02 A # 20 IV was noted in the Antecubital (right). Grade = 0 12:54:03 Patient arrived on IV Solutions via Peripheral IV. Pump/Drip Flow using NaCl .9. 12:54:05 History and physical on the chart or being dictated. Assessment: Initial Case, HR=59 BPM, HAAL=245/79 mmhg, Chest Pain=0, Edema=None, Color=Normal, Skin = Warm, Dry Right Pulses: Carmelo Ped=3, Femoral=3 12:54:06 Left Pulses: Carmelo Ped=3, Femoral=3 Neurological: State=Alert, Ox3, LOZANO Respiration: Resp=20 B/min, SpO2=96 % Vitals capture started with the following parameters, Patient=Adult, Interval=5 min, Initial Pr elmgen=477 mmHg, 12:54:08 Deflation Rate=5 mmHg, Cuff placed on Right Arm 12:54:45 HR=62 bpm, NZGS=542/79 mmhg, SpO2=96.0 %, Resp=16 B/min 12:57:45 Bilateral groins prepped with 2% chlorhexidine, and draped after a 3 minute waiting time. 12:59:47 HR=59 bpm, RAFR=732/77 mmhg, SpO2=94.0 %, Resp=14 B/min 13:03:58 MD paged 13:04:46 HR=60 bpm, BMAY=882/73 mmhg, SpO2=95.0 %, Resp=16 B/min 13:05:41 Pressure channel 1 zeroed. 13:09:43 HR=59 bpm, CQXO=949/74 mmhg, SpO2=94.0 %, Resp=14 B/min 13:14:46 HR=57 bpm, DWXY=926/71 mmhg, SpO2=94.0 %, Resp=14 B/min 13:18:24 MD arrived. 13:19:41 HR=61 bpm, IACH=846/82 mmhg, SpO2=96.0 %, Resp=15 B/min 13:20:13 2 mg VERSED given in lab by Alexus Esqueda, MILVIA via Peripheral IV. Ordered by Kiko Garces 13:21:23 50 mcg FENTANYL given in lab by Alexus Esqueda, MILVIA via Peripheral IV. Ordered by St sy Garces. 13:23:51 Reference ECG taken 13:24:46 HR=67 bpm, QHOW=136/69 mmhg, SpO2=95.0 %, Resp=16 B/min Time Out. Correct patient, correct procedure, correct physician, labs, allergies, and equipment verified with yard labor supervisor 13:25:24 team present. Fire risk assesment completed (see hard stop sheet for coding). Time Out Conc urred by and individual staff in procedure. 13:27:15 Case Start 13:27:16 5 mL 1% XYLOCAINE given in lab by Blane Garces in Right Groin via Subcutaneous. Ordered b y Blane Garces. 13:28:13 Access site was Right Femoral Artery. 13:28:17 A SHEATH, FR5 TERUMO (10CM) FR 5 was advanced into the Fem Art (right) using the Percutaneo us technique. A JR 4.0 INFINITI CATHETER FR 5 was advanced over a wire. OMNIPAQUE, 350 MG, 150ML 150ML was us ed for 13:29:24 injections. 13:30:08 The RCA was injected and visualized at various angles. OMNIPAQUE, 350 MG, 150ML 150ML used . 13:30:20 HR=62 bpm, VNHT=265/70 mmhg, Resp=4 B/min 13:31:09 The MCGINNIS-LAD was injected and visualized at various angles. OMNIPAQUE, 350 MG, 150ML 150ML used. A SHEATH, FR6.5 PRELUDE 11CM FR 6.5 was exchanged in the Fem Art (right). This was necessary in order to 13:33:58 accomodate a larger catheter. 13:34:33 A LCB GUIDE CATHETER FR 6 was advanced over a wire. OMNIPAQUE, 350 MG, 150ML 150ML was used for injections. 13:34:42 HR=59 bpm, IDDQ=808/69 mmhg, SpO2=92.0 %, Resp=21 B/min 13:35:48 The SVG-OM was injected and visualized at various angles. OMNIPAQUE, 350 MG, 150ML 150ML us ed. 13:37:39 5000 units HEPARIN given in lab by Alexus Esqueda, MILVIA via Peripheral IV. Ordered by Blane Garces. Recorded Pressure: Ao, HR=61, Condition=Condition 1 13:39:46 (Aorta) Ao 104/57/77 13:39:49 HR=59 bpm, IXME=716/61 mmhg, SpO2=86.0 %, Resp=7 B/min 13:41:45 A WIRE, RUNTHROUGH NS FLOPPY .014 180CM 180CM was inserted via Fem Art (right). 13:41:49 Interventional wire has crossed the lesion 13:44:44 HR=60 bpm, KJTJ=196/64 mmhg, SpO2=94.0 %, Resp=8 B/min 13:45:25 1 mg VERSED given in lab by Alexus Esqueda RN via Peripheral IV. Ordered by Kiko Garces 13:46:26 50 mcg FENTANYL given in lab by Alexus Esqueda RN via Peripheral IV. Ordered by St sy Garces. A CATHETER, ELCA 0.9MM X-80 150CM was advanced over a wire. OMNIPAQUE, 350 MG, 150ML 150ML was used for 13:46:39 injections. 13:49:43 HR=60 bpm, ATMT=366/73 mmhg, SpO2=91.0 %, Resp=6 B/min 13:50:17 lasering in progress 13:52:08 laser Catheter was removed 13:52:18 Activated Clotting Time Drawn A BALLOON, 3.0 X 20MM EUPHORA 20MM was inserted over WIRE, RUNTHROUGH NS FLOPPY .014 180CM 180C M via 13:53:09 the Fem Art (right). A BALLOON, 3.0 X 20MM EUPHORA 20MM over a WIRE, RUNTHROUGH NS FLOPPY .014 180CM 180CM in the SV G-OM 13:53:15 was inflated using a 30 LG INDEFLATOR at 8 lg for 14 sec. A BALLOON, 3.0 X 20MM EUPHORA 20MM over a WIRE, RUNTHROUGH NS FLOPPY .014 180CM 180CM in the SV G-OM 13:53:57 was inflated using a 30 LG INDEFLATOR at 10 lg for 10 sec. 13:54:38 Balloon Removed. 13:54:46 HR=55 bpm, KSTU=800/70 mmhg, SpO2=94.0 %, Resp=0 B/min A CATHETER, FR6 GUIDELINER FR 6 was advanced over a wire. OMNIPAQUE, 350 MG, 150ML 150ML was us ed for 13:58:11 injections. 13:59:22 ACT (Normal Range 90-180) = 291 13:59:47 HR=55 bpm, LKGZ=469/68 mmhg, Resp=7 B/min A STENT, SYNERGY 3.0 X 16MM was advanced through a CATHETER, FR6 GUIDELINER FR 6 over a WIRE, 13:59:57 RUNTHROUGH NS FLOPPY .014 180CM 180CM. A STENT, SYNERGY 3.0 X 16MM was deployed using a 30 LG INDEFLATOR at 11 atmospheres for 10 sec onds in the 14:00:10 SVG-OM. 14:01:48 Delivery device removed A STENT, SYNERGY 3.5 X 20MM was advanced through a CATHETER, FR6 GUIDELINER FR 6 over a WIRE, 14:01:50 RUNTHROUGH NS FLOPPY .014 180CM 180CM. 14:02:36 NIBP STAT measurement started. A STENT, SYNERGY 3.5 X 20MM was deployed using a 30 LG INDEFLATOR at 15 atmospheres for 10 sec onds in the 14:02:43 SVG-OM. 14:03:08 Delivery device removed 14:03:10 HR=58 bpm, CDJH=933/69 mmhg, Resp=18 B/min 14:04:30 Catheter was removed 14:04:45 Wire removed 14:04:50 HR=57 bpm, TOLD=094/70 mmhg, Resp=11 B/min 14:05:51 An injection in the Fem Art (right) was made through the SHEATH, FR6.5 PRELUDE 11CM FR 6.5. 14:06:25 ANGIOSEAL, FR6 VIP FR 6 placement in the Fem Art (right) 14:06:35 Case End (Physician broke scrub) Assessment: Final Case, HR=59 BPM, ESKW=177/70 mmhg, Chest Pain=0, Edema=None, Color=Normal, Sk in = Warm, Dry Right Pulses: Carmelo Ped=3, Femoral=3 14:07:18 Left Pulses: Carmelo Ped=3, Femoral=3 Neurological: State=Alert, Ox3, LOZANO Respiration: Resp=20 B/min, SpO2=96 % 14:08:11 Catheter(s) removed without difficulty 14:08:20 Sterile dressing applied to site 14:08:20 No case complications noted. 14:08:21 Case complication noted. 14:08:21 Cine recording checked. 14:08:22 Bedside Report will be given. 14:08:25 Implantable Device card placed in patient's chart. 14:09:30 A Left Heart Cath was performed. 14:09:49 HR=55 bpm, SKZJ=341/74 mmhg, SpO2=90.0 %, Resp=11 B/min 14:16:46 Patient moved to stretcher End Study - Contrast Media Used In Study Contrast Total Opened (mL) Total Used (mL) Total Wasted (mL) Omnipaque 100 100 0 End Study - Maximum Contrast Load Max Contrast Load (mL) 551.9 End Study - Radiation Exposure Fluoro Time Fluoro Dose (mGy) Cine Dose (uGym2) (minutes) 9.2 1222 1238 End Study - Patient Disposition Complications Transferred To Interventional Outcome No Telemetry Bed successful
--- NOTE | 2018-03-24 15:04 | P.PCN ---
Date of procedure: 03/24/18 Pre-op diagnosis: Unstable angina Procedure: nuclear control room operator: Xander Garces MD Procedure performed: 1. Fluoroscopy with interpretation 2. Right heart catheterization 3. Coronary angiography 4. Coronary artery bypass graft angiography 5. Percutaneous coronary intervention with 2 drug-eluting stents to the saphenous vein graft to the obtuse marginal branch 6. Laser atherectomy for in-stent restenosis of the saphenous vein graft to the obtuse marginal branch Methods: Risks, benefits, and alternatives were discussed with the patient. Patient understood and consented to the procedure. Patient was brought into the cardiac catheterization lab placed in the catheterization table. Right groin was prepped and draped in a sterile fashion. Right groin was anesthetized with 1% lidocaine. Right femoral vein was accessed and a 7 Italian 11 cm sheath was placed without difficulty. The right common femoral artery was cannulated under fluoroscopic guidance and a 5 Italian 11 cm sheath was placed without difficulty. Coronary angiography: Left coronary circulation selectively engaged with a 5 Italian JL 4.0 catheter and right coronary circulations selectively engaged with a 5 Italian JR4 catheter. 1. Left main coronary has minor luminal irregularities 2. The left anterior descending coronary artery is occluded in the proximal to mid segment 3. Left circumflex originates is occluded 4. Right coronary artery is dominant vessel giving rise to posterior descending coronary artery. The right coronary artery is occluded Coronary bypass graft angiography: 1. Left internal mammary to left anterior descending coronary artery is widely patent 2. Saphenous vein graft to the obtuse marginal branch has stents present throughout the entire course obtuse marginal branch has minor luminal irregularities of proximal vein graft has severe in-stent restenosis of 90% in the distal segment 95%. 3. Saphenous vein graft to the right coronary artery is occluded. Percutaneous coronary intervention: A LCB guide catheter was selectively engaged in saphenous vein graft to the obtuse marginal branch. A 0.01 480 cm Terumo run through wire was navigated down to the first obtuse marginal branch. Excismer Laser was prepped. Laser atherectomy was performed in the proximal and distal segments of the body of the vein graft. A 3.0 x 15 mm balloon was then deployed in the proximal and distal segments. A 3.0 x 16 mm [place] [employer] drug-eluting stent was advanced onto the distal segment of the saphenous vein graft to the obtuse marginal branch body portion and deployed. A 3.5 x 20 mm Rx [place] [employer] drug-eluting stent was advanced to the proximal segment of the vein graft and deployed. Nitroglycerin was administered. Repeat angiography showed no significant residual stenosis. Conclusions: 1. Severe [place] three-vessel coronary artery disease 2. 2 of 3 coronary bypass grafts are patent 3. Severe in-stent restenosis within the body in the proximal and distal segments of the vein graft to the obtuse marginal branch 4. Successful laser atherectomy of the saphenous vein graft in-stent restenosis to the obtuse marginal branch 5. Successful percutaneous coronary intervention with drug-eluting stents to the saphenous vein graft to the obtuse marginal branch Plan: We will monitor patient for any postprocedural complications. We will continue guideline directed medical therapy which includes aspirin, beta -jenny, statin, prasugrel, and long-acting nitrate. Angio-Seal was administered with good hemostasis. If patient does well post procedurally, he can be discharged with outpatient follow-up
== END 2018-03-24 17:30 | disposition home or self-care (01) | DRG 247 ==
LOC: NEPE 13:29 → NEDA 15:45 → N05 18:00 → HCIS 03-24 14:08
PROVIDERS: ADMIT Hospitalist; ATTEND Hospitalist
CPT/HCPCS: 71010; 71045; 80053; 82272; 82550; 84484; 85002; 85025; 85610; 85730; 92933; 93005; 93455; 99152; 99153; 99285; C1714; C1725; C1760; C1769; C1874; C1885; C1887; C1893; G0269; J1644; J2250; J3010; Q9967